=== PATIENT | female | born 1940 | race Caucasian/White ===

== ENCOUNTER 2018-09-02 16:24 | Inpatient (IN) | payer MEDICAID, MEDICARE ==
[2018-09-02] MEDS ORDERED: Sodium Chloride 0.9% 1000 ML 1,000 ML IV SCH (16:45)
[2018-09-02 16:47] LABS: BASOPHIL % 0.5 % (0.0-0.4); Basophil (Absolute #) 0.03 (0-0.4); Eosinophil % 0.5 % (0.00-5.0); Eosinophil (Absolute #) 0.03 (0-0.5); Granulocyte Absolute (ANC) 4.26 (1.4-6.9); Granulocytes % 68.6 % (36.0-66.0); Hematocrit 45.2 % (35-47); Mean Cell Volume 95.4 fl (78-100); Mean Corpuscular Hemoglobin 31.6 pg (26-32); Mean Corpuscular Hgb Concent. 33.2 g/dl (32-36); Mean Platelet Volume 10.1 fl (6-9.5); Monocyte (Absolute #) 0.58 (0.0-1.3); Monocytes % 9.4 % (0.0-12.0); Platelet Count 299 K/mm3 (150-450); Red Blood Count 4.74 M/mm3 (4.1-5.4); Red Cell Distribution Width 13.1 % (11.5-14.0); White Blood Count 6.2 K/mm3 (4.0-10.5)
[2018-09-02] MEDS ORDERED: Sodium Chloride 0.9% 1000 ML 1,000 ML ONE (16:47)
--- NOTE | 2018-09-02 16:54 | ERPHSYRPT ---
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 Patient sometimes has trouble remembering but she is oriented to place and person month and year. She states that she chronically has problems with her memory since having several strokes 4-5 years ago. Past medical history includes high blood pressure, diabetes, several CVAs Past surgical history includes pilonidal cyst, appendectomy, hysterectomy Social history patient denies tobacco alcohol or illicit drug use. Timing/Duration: day(s) (3-4 days) Severity: moderate Modifying Factors: Improves With: nothing Associated Symptoms: nausea, abdominal pain (suprapubic abdominal pain), shortness of breath (occasional shortness of breath), No vomiting, No heartburn , No diaphoresis, No cough, No chills, No chest pain, No fever, No headaches, No loss of appetite, No malaise, No rash, No syncope, No seizure, No weakness Allergies/Adverse Reactions: codeine Allergy (Verified 09/02/18 17:39) methadone Allergy (Verified 09/02/18 17:39) mold Allergy (Verified 09/02/18 17:39) Penicillins Allergy (Verified 09/02/18 17:39) propoxyphene [From Darvon] Allergy (Verified 09/02/18 17:39) Home Medications: Alprazolam 0.5 mg [xanAX 0.5 MG] 0.5 mg PO DAILY 09/02/18 [History] Atenolol 100 mg PO BID 09/02/18 [History] Insulin Glargine [Lantus Insulin] 80 units IJ HS 09/02/18 [History] Levothyroxine Sodium 137 mcg PO DAILY 09/02/18 [History] Pravastatin Sodium 20 mg PO DAILY 09/02/18 [History] - Review of Systems Constitutional: No Fever, No Chills Eyes: No Symptoms Ears, Nose, & Throat: No Symptoms Respiratory: Dyspnea (Occasional shortness ofbreath), Dyspnea on Exertion (ADAM) , No Cough, No Cyanosis, No Stridor, No Wheezing Cardiac: No Chest Pain, No Edema, No Syncope Abdominal/Gastrointestinal: Abdominal Pain, Nausea, Other (Loose stools), No Vomiting, No Diarrhea, No Constipation, No Hematemesis, No Hematochezia, No Melena, No Dysphagia, No Appetite Changes Genitourinary Symptoms: No Dysuria Musculoskeletal: No Back Pain, No Neck Pain Skin: No Rash Neurological: Other (patient states chronically has problems with her memory since several strokes 4-5 years ago) Psychological: No Symptoms Endocrine: No Symptoms All Other Systems: Reviewed and Negative - Nursing Vital Signs Nursing Vital Signs: Initial Vital Signs Temperature 98.3 F 09/02/18 16:27 Pulse Rate 103 H 09/02/18 16:27 Respiratory Rate 18 09/02/18 16:27 Blood Pressure 144/84 09/02/18 16:27 O2 Sat by Pulse Oximetry 96 09/02/18 16:27 Pain Scale Pain Intensity 7 - Physical Exam General Appearance: other (well-developed elderly white female alert oriented to person, place, month, year, some problems with memorry) Eye Exam: PERRL/EOMI, eyes nml inspection Ears, Nose, Throat Exam: normal ENT inspection, TMs normal, pharynx normal, moist mucous membranes Neck Exam: normal inspection, non-tender, supple, full range of motion Respiratory Exam: normal breath sounds, lungs clear, No respiratory distress Cardiovascular Exam: regular rate/rhythm, normal heart sounds, normal peripheral pulses, capillary refill <2 sec Gastrointestinal/Abdomen Exam: soft, tenderness (suprapubic tenderness) Back Exam: normal inspection, normal range of motion, No CVA tenderness, No vertebral tenderness Extremity Exam: normal inspection, normal range of motion, pelvis stable Neurologic Exam: alert, oriented x 3, director [employer] II-XII nml as tested, other (assurance manager insurance equal 5 over 5, normal finger to nose no pronator drift no facial droop speech normal some problems with memory) Skin Exam: normal color, warm, dry, No rash SpO2 Interpretation: normal - Course Nursing assessment & vital signs reviewed: Yes EKG Interpreted by Me: RATE (93 bpm), Sinus Rhythm, NORMAL AXIS, Other (EKG: Sinus rhythm, 93 bpm, normal axis, nonspecific ST-T wave changes) - Radiology Exams Chest X-ray Interpretation: Discussed w/ radiologist (chest x-ray: Nonacute chest with chronic features.) - CT Exams Head CT Interpretation: Discussed w/radiologist (head CT: Nonacute senile braiin) Ordered Tests: Active Orders 24 hr Category Date Time Status EKG-ER Only STAT Care 09/02/18 16:35 Active IV Insertion STAT Care 09/02/18 16:35 Active CHEST 1 VIEW (PORTABLE) Stat Exams 09/02/18 16:50 Completed HEAD WITHOUT CONTRAST [CT] Stat Exams 09/02/18 18:20 Taken AMYLASE Stat Lab 09/02/18 16:46 Completed CBC W DIFF Stat Lab 09/02/18 16:46 Completed CMP Stat Lab 09/02/18 16:46 Completed LIPASE Stat Lab 09/02/18 16:46 Completed Lactic Acid Stat Lab 09/02/18 16:48 Completed TROPONIN Q3H Lab 09/02/18 16:46 Completed TROPONIN Q3H Lab 09/02/18 19:40 Completed TROPONIN Q3H Lab 09/02/18 22:45 Ordered TROPONIN Q3H Lab 09/03/18 01:45 Ordered TROPONIN Q3H Lab 09/03/18 04:45 Ordered UA W/RFX UR CULTURE Stat Lab 09/02/18 17:45 Completed VENOUS BLOOD GAS Urgent Lab 09/02/18 19:40 Completed Medication Summary Generic Name Dose Route Start Last Admin Trade Name Freq PRN Reason Stop Dose Admin Sodium Chloride 1,000 mls @ 100 mls/hr 09/02/18 16:45 09/02/18 16:53 Sodium Chloride 0.9% 1000 Ml IV 10/02/18 16:44 100 mls/hr .Q10H KEIRY Administration Potassium Chloride 100 mls @ 50 mls/hr 09/02/18 19:30 09/02/18 20:01 Potassium Chloride 20 Meq In Water 100ml IV 09/02/18 23:29 50 mls/hr Q2H KEIRY Administration Lab/Rad Data: Laboratory Result Diagrams 09/02/18 16:46 09/02/18 16:46 Laboratory Results 09/02/18 09/02/18 09/02/18 Range/Units 19:40 19:40 17:45 WBC (4.0-10.5) K/mm3 RBC (4.1-5.4) M/mm3 Hgb (12.0-16.0) gm/dl Hct (35-47) % MCV (78-100) fl MCH (26-32) pg MCHC (32-36) g/dl RDW (11.5-14.0) % Plt Count (150-450) K/mm3 MPV (6-9.5) fl Gran % (36.0-66.0) % Eos # (Auto) (0-0.5) Absolute Lymphs (auto) (1.0-4.6) Absolute Monos (auto) (0.0-1.3) Lymphocytes % (24.0-44.0) % Monocytes % (0.0-12.0) % Eosinophils % (0.00-5.0) % Basophils % (0.0-0.4) % Absolute Granulocytes (1.4-6.9) Basophils # (0-0.4) pO2/FiO2 Ratio 21.0 % VBG pH 7.52 H (7.32-7.42) VBG pCO2 at Pat Temp 43 (42-55) mm/Hg VBG pO2 at Pat Temp 52 H (25-40) mm/Hg VBG HCO3 35.1 H* (22-28) meq/L VBG O2 Sat ([place]) 90.0 L (95-100) VBG Base Excess 11.0 H (-2.0-2.0) VBG Hemoglobin 13.7 VBG Carboxyhemoglobin 2.9 (0.0-6.9) % T HGB POC Potassium 2.0 L* (3.5-5.1) Sodium (137-145) mmol/L Potassium (3.5-5.1) mmol/L Chloride (98-107) mmol/L Carbon Dioxide (22-30) mmol/L Anion Gap (5-15) MEQ/L BUN (7-17) mg/dL Creatinine (0.52-1.04) mg/dL Estimated GFR ML/MIN Glucose (74-106) mg/dL Lactic Acid (0.4-2.0) Calcium (8.4-10.2) mg/dL Total Bilirubin (0.2-1.3) mg/dL AST (14-36) U/L ALT (0-35) U/L Alkaline Phosphatase (38-126) U/L Troponin I 0.036 H* (0.000-0.034) ng/mL Serum Total Protein (6.3-8.2) g/dL Albumin (3.5-5.0) g/dL Amylase (30-110) U/L Lipase (23-300) U/L Urine Color YELLOW (YELLOW) Urine Appearance CLEAR (CLEAR) Urine pH 7.0 (5-6) Ur Specific [place] 1.026 (1.005-1.025) Urine Protein 30 (Negative) Urine Ketones MODERATE (NEGATIVE) Urine Blood NEGATIVE (0-5) Jamil/ul Urine Nitrite NEGATIVE (NEGATIVE) Urine Bilirubin NEGATIVE (NEGATIVE) Urine Urobilinogen NEGATIVE (0-1) mg/dL Ur Leukocyte Esterase NEGATIVE (NEGATIVE) Urine WBC (Auto) NONE (0-5) /HPF Urine RBC (Auto) NONE (0-2) /HPF U Epithel Cells (Auto) NONE (FEW) /HPF Urine Bacteria (Auto) NONE (NEGATIVE) /HPF Urine Mucus (Auto) SLIGHT (NEGATIVE) /HPF Urine Culture Reflexed NO (NO) Urine Glucose >=500 (NEGATIVE) mg/dL 09/02/18 09/02/18 09/02/18 Range/Units 16:48 16:46 16:46 WBC (4.0-10.5) K/mm3 RBC (4.1-5.4) M/mm3 Hgb (12.0-16.0) gm/dl Hct (35-47) % MCV (78-100) fl MCH (26-32) pg MCHC (32-36) g/dl RDW (11.5-14.0) % Plt Count (150-450) K/mm3 MPV (6-9.5) fl Gran % (36.0-66.0) % Eos # (Auto) (0-0.5) Absolute Lymphs (auto) (1.0-4.6) Absolute Monos (auto) (0.0-1.3) Lymphocytes % (24.0-44.0) % Monocytes % (0.0-12.0) % Eosinophils % (0.00-5.0) % Basophils % (0.0-0.4) % Absolute Granulocytes (1.4-6.9) Basophils # (0-0.4) pO2/FiO2 Ratio % VBG pH (7.32-7.42) VBG pCO2 at Pat Temp (42-55) mm/Hg VBG pO2 at Pat Temp (25-40) mm/Hg VBG HCO3 (22-28) meq/L VBG O2 Sat ([place]) (95-100) VBG Base Excess (-2.0-2.0) VBG Hemoglobin VBG Carboxyhemoglobin (0.0-6.9) % T HGB POC Potassium (3.5-5.1) Sodium 137 (137-145) mmol/L Potassium 2.2 L* (3.5-5.1) mmol/L Chloride 90 L (98-107) mmol/L Carbon Dioxide 32 H (22-30) mmol/L Anion Gap 16.0 H (5-15) MEQ/L BUN 15 (7-17) mg/dL Creatinine 0.66 (0.52-1.04) mg/dL Estimated GFR > 60.0 ML/MIN Glucose 379 H (74-106) mg/dL Lactic Acid 1.6 (0.4-2.0) Calcium 9.5 (8.4-10.2) mg/dL Total Bilirubin 0.70 (0.2-1.3) mg/dL AST 39 H (14-36) U/L ALT 43 H (0-35) U/L Alkaline Phosphatase 75 (38-126) U/L Troponin I 0.033 (0.000-0.034) ng/mL Serum Total Protein 6.7 (6.3-8.2) g/dL Albumin 4.0 (3.5-5.0) g/dL Amylase 57 (30-110) U/L Lipase 106 (23-300) U/L Urine Color (YELLOW) Urine Appearance (CLEAR) Urine pH (5-6) Ur Specific [place] (1.005-1.025) Urine Protein (Negative) Urine Ketones (NEGATIVE) Urine Blood (0-5) Jamil/ul Urine Nitrite (NEGATIVE) Urine Bilirubin (NEGATIVE) Urine Urobilinogen (0-1) mg/dL Ur Leukocyte Esterase (NEGATIVE) Urine WBC (Auto) (0-5) /HPF Urine RBC (Auto) (0-2) /HPF U Epithel Cells (Auto) (FEW) /HPF Urine Bacteria (Auto) (NEGATIVE) /HPF Urine Mucus (Auto) (NEGATIVE) /HPF Urine Culture Reflexed (NO) Urine Glucose (NEGATIVE) mg/dL 09/02/18 Range/Units 16:46 WBC 6.2 (4.0-10.5) K/mm3 RBC 4.74 (4.1-5.4) M/mm3 Hgb 15.0 (12.0-16.0) gm/dl Hct 45.2 (35-47) % MCV 95.4 (78-100) fl MCH 31.6 (26-32) pg MCHC 33.2 (32-36) g/dl RDW 13.1 (11.5-14.0) % Plt Count 299 (150-450) K/mm3 MPV 10.1 H (6-9.5) fl Gran % 68.6 H (36.0-66.0) % Eos # (Auto) 0.03 (0-0.5) Absolute Lymphs (auto) 1.30 (1.0-4.6) Absolute Monos (auto) 0.58 (0.0-1.3) Lymphocytes % 21.0 L (24.0-44.0) % Monocytes % 9.4 (0.0-12.0) % Eosinophils % 0.5 (0.00-5.0) % Basophils % 0.5 (0.0-0.4) % Absolute Granulocytes 4.26 (1.4-6.9) Basophils # 0.03 (0-0.4) pO2/FiO2 Ratio % VBG pH (7.32-7.42) VBG pCO2 at Pat Temp (42-55) mm/Hg VBG pO2 at Pat Temp (25-40) mm/Hg VBG HCO3 (22-28) meq/L VBG O2 Sat ([place]) (95-100) VBG Base Excess (-2.0-2.0) VBG Hemoglobin VBG Carboxyhemoglobin (0.0-6.9) % T HGB POC Potassium (3.5-5.1) Sodium (137-145) mmol/L Potassium (3.5-5.1) mmol/L Chloride (98-107) mmol/L Carbon Dioxide (22-30) mmol/L Anion Gap (5-15) MEQ/L BUN (7-17) mg/dL Creatinine (0.52-1.04) mg/dL Estimated GFR ML/MIN Glucose (74-106) mg/dL Lactic Acid (0.4-2.0) Calcium (8.4-10.2) mg/dL Total Bilirubin (0.2-1.3) mg/dL AST (14-36) U/L ALT (0-35) U/L Alkaline Phosphatase (38-126) U/L Troponin I (0.000-0.034) ng/mL Serum Total Protein (6.3-8.2) g/dL Albumin (3.5-5.0) g/dL Amylase (30-110) U/L Lipase (23-300) U/L Urine Color (YELLOW) Urine Appearance (CLEAR) Urine pH (5-6) Ur Specific [place] (1.005-1.025) Urine Protein (Negative) Urine Ketones (NEGATIVE) Urine Blood (0-5) Jamil/ul Urine Nitrite (NEGATIVE) Urine Bilirubin (NEGATIVE) Urine Urobilinogen (0-1) mg/dL Ur Leukocyte Esterase (NEGATIVE) Urine WBC (Auto) (0-5) /HPF Urine RBC (Auto) (0-2) /HPF U Epithel Cells (Auto) (FEW) /HPF Urine Bacteria (Auto) (NEGATIVE) /HPF Urine Mucus (Auto) (NEGATIVE) /HPF Urine Culture Reflexed (NO) Urine Glucose (NEGATIVE) mg/dL - Progress Progress: improved Progress Note: 09/02/18 19:18 78-year-old white female with history of high blood pressure, diabetes, who states she's had CVA in the past and has memory problems arrives with complaints of low abdominal pain symptoms for several days she states she's been nauseous no vomiting She is felt to be somewhat to confused by the nurses however the patient is alert and oriented to person month and year. She does have problems with remembering some things she does state that they she has been chronically like this since having several strokes 4-5 years ago. On physical examination patient is alert and oriented 3. Head is atraumatic normocephalic. Eyes PERRLA EOMI fundi are unremarkable. Ears TMs malin intact bilaterally. Nose is clear. Throat is clear. Neck is supple lungs are clear heart is regular abdomen soft, mild suprapubic tenderness positive bowel sounds negative masses negative rebound. Extremities full range of motion pulse equal symmetrical 2 over 4. Neuro cranial nerves II through XII are intact DTRs symmetrical 2 over 4 Bladen Coma Scale 15 patient does have some memory problems. Labs EKG sinus rhythm 93 beats per minute normal axis nonspecific ST and T wave changes head CT without contrast: No comparisons. Nonacute senile brain chest x -ray nonacute chest with chronic features. Labs CBC white blood cell 6.2 hemoglobin 15.0 hematocrit 45.2 platelets 299 Chemistry sodium 137 potassium 2.2 chloride 90 bicarbonate 32 BUN 15 creatinine 0.66 glucose is 379. Patient's troponin is 0. 033 Lactate is 1.6 Urinalysis moderate ketones specific gravity 1. 07/03/29 protein Impression 1.abdominal pain 2. Hyperglycemia 3. Hypokalemia. Plan we'll obtain venous gases on this patient I have asked the nurses to run in a bolus of normal saline 1 L. We'll go ahead and order K rider for this patient. Expect patient will need to be placed on observation telemetry continue potassium continued IV fluids sliding scale insulin coverage. 09/02/18 19:[address] Enamorado who is loans consultant for the hospital. This patient has hypokalemia and hyperglycemia. With a potassium of 2.2. We'll run in his current liter of normal saline Will plan to change the IV normal saline to 150 mL per hour, 40 mEq K rider has been ordered for this patient. Patient will need placed on telemetry patient will need her potassium up to at least 3 before considering insulin. Patient suprapubic abdominal pain is already improved after receiving IV fluids Impression 1 abdominal pain (suprapubic ) (2. Hypokalemia, Hyperglycemia. 09/02/18 20:27 I have been notified by labs at patient's troponin 0.036 last one was 0.033 I' ve discussed this with Dr. enamorado do not feel like this is significant. Patient is not having any chest pain she is stable. This appears to represent lab variation. Will go ahead and plan on placing the patient on telemetry with normal saline at 150 mL per hour patient is receiving a bolus of 1 L at this time. Will order every 2 hour Accu-Cheks. Patient to have a repeat BMP after second K rider has been instilled. . This has been discussed with Dr. enamorado. - Departure Departure Disposition: Observation Clinical Impression: Hyperglycemia, Hypokalemia Abdominal pain Qualifiers: Abdominal location: lower abdomen, unspecified Qualified Code(s): R10.30 - Lower abdominal pain, unspecified Condition: Fair Critical Care Time: No Referrals: DOCTOR,NO FAMILY [Primary Care Provider] -
--- NOTE | 2018-09-02 17:07 | XRAY ---
Indication: Abdomen pain. Comparison: None Portable chest demonstrates left midlung discoid atelectasis/scarring. Remaining heart and lungs normal. Bony thorax intact with mild degenerative changes. Impression: Nonacute chest with chronic features.
[2018-09-02 17:37] LABS: ALKALINE PHOSPHATASE 75 U/L (38-126); AMYLASE 57 U/L (30-110); BLOOD UREA NITROGEN 15 mg/dL (7-17); CHLORIDE 90 mmol/L (98-107); Calcium 9.5 mg/dL (8.4-10.2); Carbon Dioxide 32 mmol/L (22-30); Creatinine 1 0.66 mg/dL (0.52-1.04); Glucose 379 mg/dL (74-106); LIPASE 106 U/L (23-300); SGOT/AST 39 U/L (14-36); SGPT/ALT 43 U/L (0-35); SODIUM 137 mmol/L (137-145); Total Protein 6.7 g/dL (6.3-8.2)
[2018-09-02 17:44] LABS: Potassium 2.2 mmol/L (3.5-5.1)
[2018-09-02 18:10] LABS: Appearance CLEAR (CLEAR); Bilirubin NEGATIVE (NEGATIVE); Blood NEGATIVE Ery/ul (0-5); Glucose >=500 mg/dL (NEGATIVE); Ketones MODERATE (NEGATIVE); Leukocyte Esterase NEGATIVE (NEGATIVE); Mucus SLIGHT /HPF (NEGATIVE); Nitrite NEGATIVE (NEGATIVE); Protein,Urine Dip 30 (Negative); Specific Gravity 1.026 (1.005-1.025); Urobilinogen NEGATIVE mg/dL (0-1)
[2018-09-02] MEDS ORDERED: POTASSIUM CHLORIDE 20 mEq IN WATER 100ML 100 ML IV SCH (19:30)
[2018-09-02 19:54] LABS: VBG CARBOXYHEMOGLOBIN 2.9 % T HGB (0.0-6.9); VBG HCO3- 35.1 meq/L (22-28); VBG HEMOGLOBIN 13.7; VBG pH 7.52 (7.32-7.42)
[2018-09-02] MEDS ORDERED: POTASSIUM CHLORIDE 20 mEq IN WATER 100ML 100 ML IV ONE (19:57)
[2018-09-02 23:37] LABS: ANION GAP 12.5 MEQ/L (5-15); BLOOD UREA NITROGEN 11 mg/dL (7-17); CHLORIDE 95 mmol/L (98-107); Calcium 8.7 mg/dL (8.4-10.2); Carbon Dioxide 33 mmol/L (22-30); Creatinine 1 0.57 mg/dL (0.52-1.04); Glucose 299 mg/dL (74-106); SODIUM 138 mmol/L (137-145)
[2018-09-02 23:45] LABS: Potassium 2.4 mmol/L (3.5-5.1)
[2018-09-03] MEDS: POTASSIUM CHLORIDE 20 mEq IN WATER 100ML 20 MEQ/100 ML BAG IV SCH ×4 (00:05→11:43)
[2018-09-03] MEDS: Magnesium 1 Gm / 100 Ml D5W*** 100 ML IV SCH ×2 (04:24→05:01)
[2018-09-03] MEDS: NovoLOG Insulin SQ PRN ×7 (04:46→22:11)
[2018-09-03 05:53] LABS: BASOPHIL % 0.5 % (0.0-0.4); Basophil (Absolute #) 0.03 (0-0.4); Eosinophil % 0.8 % (0.00-5.0); Eosinophil (Absolute #) 0.05 (0-0.5); Granulocyte Absolute (ANC) 4.63 (1.4-6.9); Granulocytes % 70.7 % (36.0-66.0); Hematocrit 41.4 % (35-47); Hemoglobin 13.4 gm/dl (12.0-16.0); Lymphocyte (Absolute #) 1.24 (1.0-4.6); Mean Cell Volume 97.2 fl (78-100); Mean Corpuscular Hemoglobin 31.5 pg (26-32); Mean Corpuscular Hgb Concent. 32.4 g/dl (32-36); Mean Platelet Volume 10.6 fl (6-9.5); Monocyte (Absolute #) 0.59 (0.0-1.3); Platelet Count 278 K/mm3 (150-450); Red Blood Count 4.26 M/mm3 (4.1-5.4); Red Cell Distribution Width 12.9 % (11.5-14.0); White Blood Count 6.5 K/mm3 (4.0-10.5)
[2018-09-03 06:13] LABS: ALBUMIN 3.2 g/dL (3.5-5.0); ALKALINE PHOSPHATASE 62 U/L (38-126); ANION GAP 10.5 MEQ/L (5-15); BLOOD UREA NITROGEN 8 mg/dL (7-17); CHLORIDE 96 mmol/L (98-107); Calcium 8.1 mg/dL (8.4-10.2); Carbon Dioxide 33 mmol/L (22-30); Creatinine 1 0.58 mg/dL (0.52-1.04); Glucose 351 mg/dL (74-106); SGOT/AST 24 U/L (14-36); SGPT/ALT 34 U/L (0-35); SODIUM 137 mmol/L (137-145); Total Protein 5.6 g/dL (6.3-8.2)
[2018-09-03 06:29] LABS: Potassium 2.5 mmol/L (3.5-5.1)
[2018-09-03] MEDS: Sodium Chloride 0.9% 1000 ML 1,000 ML IV SCH ×3 (06:48→13:31)
[2018-09-03 07:27] LABS: MAGNESIUM 2.2 mg/dL (1.6-2.3)
[2018-09-03 07:49] LABS: Potassium 2.4 mmol/L (3.5-5.1)
--- NOTE | 2018-09-03 08:41 | XRAY ---
Indication: Memory problems. Multiple contiguous axial images obtained through the head without contrast. Comparison: None Age-appropriate global atrophy and mild periventricular degenerative micro-ischemia bilaterally. Benign bilateral basal ganglia calcifications. No acute intracranial hemorrhage, abnormal extra-axial fluid collection, or mass effect. Ventricular system is slightly prominent. Fourth ventricle is midline. Bony calvarium intact. Visualized paranasal sinuses and mastoid air cells are clear. Impression: 1. Nonacute senile brain. 2. Slightly prominent ventricular system. Communicating type hydrocephalus not completely excluded in the right clinical setting. CT DI 61.87
[2018-09-03] MEDS: Lantus Insulin SQ SCH (09:25)
[2018-09-03] MEDS: ENOXAPARIN SODIUM SQ SCH (09:25)
[2018-09-03] MEDS ORDERED: SYNTHROID 25 MCG PO SCH (10:45)
[2018-09-03] MEDS ORDERED: SYNTHROID 112 MCG PO SCH (10:45)
[2018-09-03] MEDS: TENORMIN 50 MG PO SCH ×2 (11:41→22:10)
[2018-09-03] MEDS ORDERED: xanAX 0.5 MG PO SCH (12:00)
--- NOTE | 2018-09-03 14:02 | HP ---
HISTORY OF PRESENT ILLNESS: This is a 78 year-old patient who does not have a physician in the local area. She reports she is from [facility] and had a nurse practitioner that she saw in [place] but she has moved to the [facility] and is staying with a family member in [facility] which are apartments and she has been there for less than a week. She reports she has a history of diabetes mellitus type 2. She is concerned that some of her medication may have been stolen during the move. She reports she checks her blood sugar in the morning and the evening. She states that she always has diarrhea, abdominal pain and cramps from the diarrhea but that at this point in time is better. She reports years ago she had low potassium and was supposed to take potassium on a regular basis but then she thinks was forgotten and she has not been on potassium lately. The emergency room notes that she came in with lower abdominal pain. The nurses were concerned about altered mental status. Because of this she had a troponin done and a second one. The second one was very slightly elevated. The patient has never had any chest pain. She also had a head CT that was read as senile brain with no acute problems. Please see the radiologist report for that. The patient denies any falls. REVIEW OF SYSTEMS: No fever. No cough. She reports rhinorrhea chronically from allergies but no change. No nausea or vomiting. She reports she has some itching under her left arm where she had some warts. No lower extremity edema. No blood in her stool. She reports she had a colonoscopy five to ten years ago that was normal. PAST MEDICAL HISTORY: Diabetes mellitus type 2, seasonal allergies, hypothyroidism. PAST SURGICAL HISTORY: Appendectomy. Hysterectomy. Pilonidal cyst removed. Thyroid removed. 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 She denies having chemo or radiation. MEDICATIONS: Please see the medication reconciliation list which I reviewed. ALLERGIES: CODEINE, METHADONE, PENICILLIN, PROPOXYPHENE. SOCIAL HISTORY: She is a . She denies any tobacco. Occasional alcohol use but only rarely. FAMILY HISTORY: Her mother is and at 98. She also had problems with diarrhea. Her father is and at 75 from bladder cancer. PHYSICAL EXAMINATION: VITAL SIGNS: Temperature current 97.8F, heart rate 86, respiratory rate 20, blood pressure 172/80. Oxygen saturation 95% on room air. GENERAL: The patient is sitting up a pleasant talkative lady in no acute distress. She is alert, oriented x3 and knows who the President of [employer] is. CVS: She has a regular rate and rhythm. No murmurs, gallops or rubs. CHEST: Clear to auscultation bilaterally. No crackles or wheezes. ABDOMEN: Soft, nontender, nondistended with normal bowel sounds. EXTREMITIES: No clubbing, cyanosis or edema. SKIN: Warm, dry and intact. LABORATORY DATA AND TESTS: On admission her potassium was 2.2 and it went up to 2.5 with replacement and another repeat was 2.4 again. Her magnesium was checked and was 1.6, replaced was 2.2. CBC within normal limits. UA revealed greater than 500 glucose, moderate ketones. Chest x-ray was read as nonacute chest with chronic features. ASSESSMENT AND PLAN: 1) HYPOKALEMIA: The etiology of this is unclear. She states she does eat regularly. It could be due to the diarrhea. Will continue with IV replacement. I have also tried to raise her magnesium level to help with this. 2) DIARRHEA: Will check blood test to screen for celiac disease. 3) DIABETES MELLITUS TYPE 2, UNCONTROLLED: She said she takes 80 units of Lantus at home but could not remember when she last took this. I have started her on 20 units of Lantus on a low sliding scale. 4) HYPOTHYROIDISM: Her TSH was checked and was found to be elevated. I will plan to increase her dose on Levothyroxine if she has truly had cancer in the past we want to try keep her TSH as low as possible. 5) DEEP VENOUS THROMBOSIS PROPHYLAXIS: Use Lovenox and LISA hose.
[2018-09-03] MEDS ORDERED: Klor Con 10 MEQ PO ONE ×2 (16:52→21:57)
[2018-09-03] MEDS: ZOCOR 20MG PO SCH (22:11)
[2018-09-03] MEDS: xanAX 0.5 MG PO SCH (22:11)
[2018-09-04 03:57] LABS: IGA QUANTITATIVE 109 mg/dL (70-400)
[2018-09-04] MEDS: Sodium Chloride 0.9% 10 ML FLUSH Syringe IV SCH ×3 (06:01→21:27)
[2018-09-04 06:05] LABS: ANION GAP 9.9 MEQ/L (5-15); BLOOD UREA NITROGEN 11 mg/dL (7-17); CHLORIDE 99 mmol/L (98-107); Carbon Dioxide 36 mmol/L (22-30); Glucose 281 mg/dL (74-106); SODIUM 142 mmol/L (137-145)
[2018-09-04 06:14] LABS: Potassium 2.9 mmol/L (3.5-5.1)
[2018-09-04] MEDS ORDERED: Klor Con 10 MEQ PO ONE ×2 (06:46→06:53)
[2018-09-04] MEDS: ENOXAPARIN SODIUM SQ SCH (07:46)
[2018-09-04] MEDS: NovoLOG Insulin SQ PRN ×3 (07:47→21:27)
[2018-09-04] MEDS: Lantus Insulin SQ SCH (07:47)
[2018-09-04] MEDS: Sodium Chloride 0.9% 1000 ML 1,000 ML IV SCH (07:47)
[2018-09-04] MEDS: TENORMIN 50 MG PO SCH ×2 (08:04→21:26)
[2018-09-04] MEDS: SYNTHROID 150 MCG PO SCH (08:04)
[2018-09-04] MEDS: Aldactone 25 MG PO SCH (10:23)
[2018-09-04 13:29] LABS: T-TRANSGLUTAMINASE IGA <0.5 U/mL (0.0-14.9)
[2018-09-04] MEDS ORDERED: K-LYTE 25 MEQ PO ONE (13:39)
--- NOTE | 2018-09-04 16:26 | PCM.NOTE ---
Date and Time: 09/04/18 1620 Subjective Assessment: She reports today that she is basically homeless and needs a place to rent. When asked she reports having had a tumor maybe on her kidney or adrenal gland back when all her children lived at home. She states [facility] has not had any follow up on this. When I asked her if she has been on spironolactone in the past, she said yes. Overall she states she feels better. She denies abdominal pain or diarrhea at this time. - Review of Systems Constitutional: No Symptoms Eyes: No Symptoms Ears, Nose, & Throat: No Symptoms Respiratory: No Symptoms Cardiac: No Symptoms Abdominal/Gastrointestinal: No Symptoms Genitourinary Symptoms: No Symptoms Musculoskeletal: No Symptoms Skin: No Symptoms Objective Exam General Appearance: no apparent distress Neurologic Exam: alert, cooperative, nml station & gait Skin Exam: normal color, warm, dry, No rash Respiratory Exam: normal breath sounds, No lungs clear, No respiratory distress Cardiovascular Exam: regular rate/rhythm, normal heart sounds, No murmur, No friction rub, No gallop Gastrointestinal/Abdomen Exam: soft, normal bowel sounds, No tenderness, No distention, No mass Extremity Exam: normal inspection, other (no c/c/e) OBJECTIVE DATA Vital Signs: Vital Signs - 24 hr Temp Pulse Resp BP BP Pulse Ox 09/04/18 12:00 98.1 F 70 20 132/58 96 09/04/18 08:04 68 150/65 09/04/18 08:00 97.8 F 68 16 150/65 96 09/04/18 04:00 98.2 F 69 18 153/65 94 L 09/04/18 00:00 17 09/03/18 23:50 97.9 F 70 17 184/78 96 09/03/18 22:10 75 170/72 09/03/18 20:06 17 09/03/18 20:00 99.0 F 75 17 170/72 99 Pain Assessment - Last Documented Pain Intensity 0 Pain Scale Used 0-10 Pain Scale Intake and Output: Intake & Output 09/02/18 09/03/18 09/04/18 09/05/18 06:59 06:59 06:59 06:59 Intake Total 2163 1980 Output Total 400 2400 Balance 1763 -420 Weight 78.5 kg 78.2 kg Lab Results: Accuchecks Date 09/04/18 Date 09/04/18 Date 09/03/18 Date 09/03/18 Date 09/03/18 Time 11:30 Time 05:00 Time 23:00 Time 21:30 Accucheck Value: 353 Accucheck Value: 252 Accucheck Value: 372 Accucheck Value: 207 Lab Results-Last 24 Hours 09/03/18 09/03/18 09/03/18 Range/Units 05:00 16:15 20:17 Sodium (137-145) mmol/L Potassium 2.6 L* 2.5 L* (3.5-5.1) mmol/L Chloride (98-107) mmol/L Carbon Dioxide (22-30) mmol/L Anion Gap (5-15) MEQ/L BUN (7-17) mg/dL Creatinine (0.52-1.04) mg/dL Estimated GFR ML/MIN Glucose (74-106) mg/dL Calcium (8.4-10.2) mg/dL Ur Random Creatinine MG/DL Urine Potassium (0.1-0.7) mmol/L IgA 109 (70-400) mg/dL Tiss Transglutamin IgA <0.5 (0.0-14.9) U/mL 09/03/18 09/03/18 09/04/18 Range/Units 22:00 22:00 05:23 Sodium 142 (137-145) mmol/L Potassium 2.9 L* (3.5-5.1) mmol/L Chloride 99 (98-107) mmol/L Carbon Dioxide 36 H (22-30) mmol/L Anion Gap 9.9 (5-15) MEQ/L BUN 11 (7-17) mg/dL Creatinine 0.50 L (0.52-1.04) mg/dL Estimated GFR > 60.0 ML/MIN Glucose 281 H (74-106) mg/dL Calcium 8.0 L (8.4-10.2) mg/dL Ur Random Creatinine 44.9 MG/DL Urine Potassium 26.7 H (0.1-0.7) mmol/L IgA (70-400) mg/dL Tiss Transglutamin IgA (0.0-14.9) U/mL 09/04/18 Range/Units 12:18 Sodium (137-145) mmol/L Potassium 2.8 L* (3.5-5.1) mmol/L Chloride (98-107) mmol/L Carbon Dioxide (22-30) mmol/L Anion Gap (5-15) MEQ/L BUN (7-17) mg/dL Creatinine (0.52-1.04) mg/dL Estimated GFR ML/MIN Glucose (74-106) mg/dL Calcium (8.4-10.2) mg/dL Ur Random Creatinine MG/DL Urine Potassium (0.1-0.7) mmol/L IgA (70-400) mg/dL Tiss Transglutamin IgA (0.0-14.9) U/mL Radiology Exams: Radiology Procedures Category Date Time Status CHEST 1 VIEW (PORTABLE) Stat Exams 09/02/18 16:50 Completed HEAD WITHOUT CONTRAST [CT] Stat Exams 09/02/18 18:20 Completed Multi-Disciplinary Progress Notes: Multi-Disciplinary Progress Notes 09/04/18 14:27 Nutrition Note by Yuly Pablo Note: Pt requested diabetes H/Os regarding serving size for carb choices. Provided carb counting ed and gave H/Os for reinforcement. Pt requested MD to change current diet to 1600 ADA to help with BS control. Communicated this with HAILE Hernandez and left note in Pt paper Chart. Jeanne MSRDCD Initialized on 09/04/18 14:27 - END OF NOTE Assessment/Plan (1) Hypokalemia Current Visit: Yes Status: Acute Assessment & Plan: Continue replacement. She has renal potassium wasting with Potassium to creatinine ration of 59 mmol KCL/mg creatinine. Will ask for nephrology consult. I also started spironolactone. Aldosterone and renin level have been ordered and drawn. Magnesium level is now normal. 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 Continue sliding scale insulin. Code(s): E11.65 - TYPE 2 DIABETES MELLITUS WITH HYPERGLYCEMIA (3) Hypothyroidism Current Visit: Yes Status: Acute Assessment & Plan: I increased her dose of levothyroxine yesterday. Code(s): E03.9 - HYPOTHYROIDISM, UNSPECIFIED
[2018-09-04] MEDS: ZOCOR 20MG PO SCH (21:26)
[2018-09-04] MEDS: xanAX 0.5 MG PO SCH (21:26)
[2018-09-05 06:00] LABS: ANION GAP 9.9 MEQ/L (5-15); BLOOD UREA NITROGEN 10 mg/dL (7-17); CHLORIDE 94 mmol/L (98-107); Calcium 7.8 mg/dL (8.4-10.2); Carbon Dioxide 38 mmol/L (22-30); Creatinine 1 0.58 mg/dL (0.52-1.04); Glucose 266 mg/dL (74-106); SODIUM 140 mmol/L (137-145)
[2018-09-05 06:03] LABS: Potassium 2.9 mmol/L (3.5-5.1)
[2018-09-05] MEDS ORDERED: Klor Con 10 MEQ PO ONE ×3 (06:11→08:31)
[2018-09-05] MEDS: Sodium Chloride 0.9% 10 ML FLUSH Syringe IV SCH ×3 (06:24→21:49)
[2018-09-05] MEDS: NovoLOG Insulin SQ PRN ×3 (07:44→20:44)
[2018-09-05] MEDS: TENORMIN 50 MG PO SCH ×2 (08:59→21:47)
[2018-09-05] MEDS: Aldactone 25 MG PO SCH (08:59)
[2018-09-05] MEDS: Lantus Insulin SQ SCH (09:00)
[2018-09-05] MEDS: ENOXAPARIN SODIUM SQ SCH (09:00)
[2018-09-05] MEDS: POTASSIUM CHLORIDE 20 mEq IN WATER 100ML 20 MEQ/100 ML BAG IV SCH ×2 (09:00→12:18)
[2018-09-05] MEDS: SYNTHROID 150 MCG PO SCH (09:00)
--- NOTE | 2018-09-05 10:37 | PCM.NOTE ---
Date and Time: 09/05/18 1034 Subjective Assessment: Patient reports a good appetite and denies abdominal pain. Her nurse is at the bedside and states she has had 3 loose stools today. Nephrology consulted and they plan to see the patient today. She reports some increase in urination. She saw mental health today and they felt she was stable from their stand point. - Review of Systems Constitutional: No Symptoms Eyes: No Symptoms Ears, Nose, & Throat: No Symptoms Respiratory: No Symptoms Cardiac: No Symptoms Abdominal/Gastrointestinal: No Symptoms Genitourinary Symptoms: No Symptoms Musculoskeletal: No Symptoms Skin: No Symptoms Objective Exam General Appearance: no apparent distress, alert, obese Neurologic Exam: alert, cooperative Skin Exam: normal color, warm, dry, rash, other (erythema under left breast.) Respiratory Exam: normal breath sounds, lungs clear, No crackles/rales, No rhonchi, No wheezing Cardiovascular Exam: regular rate/rhythm, normal heart sounds, No murmur, No friction rub, No gallop Gastrointestinal/Abdomen Exam: soft, normal bowel sounds, No tenderness, No distention, No mass Extremity Exam: other (no c/c/e) OBJECTIVE DATA Vital Signs: Vital Signs - 24 hr Temp Pulse Resp BP BP Pulse Ox 09/05/18 08:59 76 180/74 09/05/18 08:00 97.9 F 69 18 180/74 95 09/05/18 07:28 16 09/05/18 04:00 17 09/05/18 03:54 98.2 F 64 17 187/74 98 09/05/18 00:00 97.7 F 64 18 163/72 97 09/04/18 21:26 77 150/65 09/04/18 20:00 98.3 F 77 18 162/78 95 09/04/18 16:00 98.5 F 80 18 146/70 94 L 09/04/18 12:00 98.1 F 70 20 132/58 96 Pain Assessment - Last Documented Pain Intensity 0 Pain Scale Used 0-10 Pain Scale Intake and Output: Intake & Output 09/03/18 09/04/18 09/05/18 09/06/18 06:59 06:59 06:59 06:59 Intake Total 2163 1980 860 Output Total 400 2400 Balance 1763 -420 860 Weight 78.5 kg 78.2 kg 80 kg Lab Results: Accuchecks Date 09/05/18 Date 09/04/18 Date 09/04/18 Date 09/04/18 Time 07:40 Time 22:00 Time 16:30 Time 11:30 Accucheck Value: 211 Accucheck Value: 280 Accucheck Value: 353 Lab Results-Last 24 Hours 09/03/18 09/04/18 09/05/18 Range/Units 05:00 12:18 05:19 Sodium 140 (137-145) mmol/L Potassium 2.8 L* 2.9 L* (3.5-5.1) mmol/L Chloride 94 L (98-107) mmol/L Carbon Dioxide 38 H (22-30) mmol/L Anion Gap 9.9 (5-15) MEQ/L BUN 10 (7-17) mg/dL Creatinine 0.58 (0.52-1.04) mg/dL Estimated GFR > 60.0 ML/MIN Glucose 266 H (74-106) mg/dL Calcium 7.8 L (8.4-10.2) mg/dL Tiss Transglutamin IgA <0.5 (0.0-14.9) U/mL Multi-Disciplinary Progress Notes: Multi-Disciplinary Progress Notes 09/04/18 14:27 Nutrition Note by Yuly Pablo Note: Pt requested diabetes H/Os regarding serving size for carb choices. Provided carb counting ed and gave H/Os for reinforcement. Pt requested MD to change current diet to 1600 ADA to help with BS control. Communicated this with HAILE Hernandez and left note in Pt paper Chart. Jeanne MSRDCD Initialized on 09/04/18 14:27 - END OF NOTE Assessment/Plan (1) Hypokalemia Current Visit: Yes Status: Acute Assessment & Plan: Continue with replacement. Plasma renin and plasma aldosterone results pending. Urine potassium was high. Sprinoloactone started. Nephrology consulted. Code(s): E87.6 - HYPOKALEMIA (2) Type 2 diabetes mellitus with hyperglycemia Current Visit: Yes Status: Acute Qualifiers: Diabetes mellitus intermediate insulin use: with intermediate use Qualified Code( s): E11.65 - Type 2 diabetes mellitus with hyperglycemia; Z79.4 - detention ( current) use of insulin Assessment & Plan: Continue current medication. Code(s): E11.65 - TYPE 2 DIABETES MELLITUS WITH HYPERGLYCEMIA (3) Hypothyroidism Current Visit: Yes Status: Acute Assessment & Plan: Dose of levothyroxine was increased during this hospitalization. Code(s): E03.9 - HYPOTHYROIDISM, UNSPECIFIED (4) Tinea corporis Current Visit: Yes Status: Acute Assessment & Plan: Start nystatin powder. Code(s): B35.4 - TINEA CORPORIS
[2018-09-05] MEDS: Sodium Chloride 0.9% 1000 ML 1,000 ML IV SCH (10:50)
[2018-09-05] MEDS: NYSTOP 30 GM CREAM TOP SCH ×2 (12:20→21:50)
[2018-09-05] MEDS: Klor Con 10 MEQ PO SCH (15:15)
--- NOTE | 2018-09-05 16:35 | XRAY ---
Indication: Possible adrenal gland tumor. Multiple contiguous axial images obtained through the abdomen and pelvis without contrast. Comparison: None Lung bases demonstrates minimal fibrosis/scarring. No infiltrate or effusion. Heart is not enlarged. Left and right adrenal glands appear normal in size and configuration. Noncontrasted stomach and bowel loops appear nonobstructed. Normal appendix. Previous cholecystectomy and hysterectomy. Both kidneys demonstrates nonspecific perinephric stranding. 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 Left kidney also demonstrates 3 round masses more dense than cyst, largest 1.9 cm mid pole possibly complex/viscous cysts. No hydronephrosis or large ureter. Remaining liver, pancreas, spleen, adrenal glands, kidneys, ureters, and bladder appear unremarkable for noncontrast exam. Moderate scattered aortoiliac calcifications without AAA. Osseous structures intact with mild degenerative changes throughout the spine. No ventral or inguinal hernias. Impression: 1. Negative adrenal gland mass. 2. Round left renal masses as detailed, possible complex/viscous cysts. CT or MRI with contrast exam may yield further information. 3. Tiny left renal angiomyolipoma. 4. No acute intra-abdominal/pelvic abnormalities on this noncontrast exam. CTDI 22.29
[2018-09-05] MEDS: xanAX 0.5 MG PO SCH (21:49)
[2018-09-05] MEDS: ZOCOR 20MG PO SCH (21:49)
[2018-09-06] MEDS: Klor Con 10 MEQ PO SCH ×4 (01:37→21:50)
[2018-09-06] MEDS: Sodium Chloride 0.9% 10 ML FLUSH Syringe IV SCH ×3 (05:31→21:51)
[2018-09-06 06:12] LABS: ANION GAP 11.9 MEQ/L (5-15); BLOOD UREA NITROGEN 11 mg/dL (7-17); CHLORIDE 100 mmol/L (98-107); Calcium 7.9 mg/dL (8.4-10.2); Carbon Dioxide 32 mmol/L (22-30); Creatinine 1 0.53 mg/dL (0.52-1.04); Glucose 276 mg/dL (74-106); Potassium 3.3 mmol/L (3.5-5.1); SODIUM 142 mmol/L (137-145)
--- NOTE | 2018-09-06 08:45 | CONS ---
CONSULT DATE: 09/05/2018 REASON FOR CONSULT: Hypertension, hypokalemia. HISTORY: Miss Ferguson is a 78 year-old female who has a significant past medical history of diabetes mellitus type 2, hypertension and CVA, was admitted to the hospital with complaint of weakness, vomiting and not feeling well. She was noted to be hypokalemic and her potassium level was noted to be low at 2.6. She has been getting aggressive potassium replacement intravenously. The patient stated that she has a history of some sort of abdominal adrenal tumor which was discovered in at the [facility] in [place]. She was worked up for that however it was never recommended in surgery. She has not followed with anybody since then. She stated she was following with a physician and nurse practitioner in [place], [place]. However, she has moved down to [place] now and has not seen any primary care since then. The patient was not taking any potassium pills at home. The patient reported having some nausea and vomiting before coming into the hospital. She denies any complaints with urination. Denies any dysuria or hematuria. Denies any fevers or chills. Denies any headache. Denies any blurry vision at this time. PAST MEDICAL HISTORY: As mentioned above diabetes mellitus type 2, CVA, hypothyroidism, thyroid tumor and hypertension. MEDICATIONS: Outpatient mediations reviewed. ALLERGIES: PER THE CHART. SOCIAL HISTORY: No smoking, alcohol or illicit drug use. FAMILY HISTORY: Significant for stroke and hypertension. REVIEW OF SYSTEMS: All pertinent systems reviewed. Negative except as mentioned in the history of present illness. PHYSICAL EXAMINATION: Vital signs noted. The blood pressure is high. GENERAL: The patient is alert, awake, not in any acute distress. HEENT: Head atraumatic, normocephalic. EENT: There is no ear or nose discharge. Oral mucosa is moist. NECK: No JVD or thyromegaly or any palpable swelling noted. CVS: S1, S2 normal. No murmur or gallop. RESPIRATORY: Significant expansion. No rhonchi or wheezing. ABDOMEN: Soft, nontender, nondistended. EXTREMITIES: No pitting edema. No cyanosis or clubbing. SKIN: Warm, dry. No rash. PSYCHIATRIC: Affect is normal. She is cooperative, answering questions appropriately. NEUROLOGIC: The patient is alert, awake, normal speech and normal hearing. LAB DATA AND TESTS: Potassium was noted to be low at 2.9 and it was 2.6 yesterday. Kidney function is within normal range. CT of the head and chest x-ray were reviewed. IMPRESSION AND PLAN: A 78 year-old female who presented with a severe hypokalemia and also noted to be hypertensive. 1) HYPOKALEMIA: This is an unprovoked hypokalemia. She has not had any vomiting at this time. She is not on any loop diuretic and for some reason she is persistently alkalotic. It makes me think she may have underlying hyperaldosteronism and we certainly need to rule out adrenal tumor. I will get a CT of the abdomen with and without contrast with adrenal focus to rule out the adrenal adenoma. Aldosterone level has already been sent out and will wait for the results. I agree with Aldactone at this time at 100 mg, closely monitor the blood pressure. I will add p.o. potassium 40 t.i.d., will repeat the potassium level. Magnesium level has already been checked and is within normal range. 2) HYPERTENSION: It makes me think that the patient has a history of long-standing hypertension and it could be a secondary hyperaldosteronism given that the patient has unprovoked hypokalemia. She is on Atenolol. I agree with adding Aldactone. If this does not work let us try potassium sparing diuretic such as amiloride. The patient's other comorbid conditions include diabetes mellitus type 2, hypothyroidism and CVA. Thank you very much for the consultation.
[2018-09-06] MEDS: NovoLOG Insulin SQ PRN ×2 (08:54→12:42)
[2018-09-06] MEDS: Aldactone 25 MG PO SCH (10:29)
[2018-09-06] MEDS: ENOXAPARIN SODIUM SQ SCH (10:32)
[2018-09-06] MEDS: TENORMIN 50 MG PO SCH ×2 (10:32→21:51)
[2018-09-06] MEDS: SYNTHROID 150 MCG PO SCH (10:33)
[2018-09-06] MEDS: Lantus Insulin SQ SCH (10:33)
[2018-09-06] MEDS: NYSTOP 30 GM CREAM TOP SCH ×2 (10:33→21:50)
--- NOTE | 2018-09-06 11:44 | PCM.NOTE ---
Date and Time: 09/06/18 1136 Subjective Assessment: Patient reports she continues to feel better. Some old records were obtained and it looks like in the past she was on spironolactone but I can't find any diagnosis to explain this. They also mention possible TIA vs seizure. She has not had any problems like that here. Nephrology saw her and they ordered a CT scan yesterday and are planning to get that done with contrast today as it was done without contrast yesterday. - Review of Systems Constitutional: No Symptoms Eyes: No Symptoms Ears, Nose, & Throat: No Symptoms Respiratory: No Symptoms Cardiac: No Symptoms Abdominal/Gastrointestinal: No Symptoms Genitourinary Symptoms: No Symptoms Musculoskeletal: No Symptoms Skin: No Symptoms Objective Exam General Appearance: no apparent distress, obese Neurologic Exam: alert, cooperative, normal mood/affect Skin Exam: normal color, warm, dry, No rash Respiratory Exam: normal breath sounds, lungs clear, No crackles/rales, No rhonchi, No wheezing Cardiovascular Exam: regular rate/rhythm, normal heart sounds, No murmur, No friction rub, No gallop Gastrointestinal/Abdomen Exam: soft, normal bowel sounds, No tenderness, No distention, No mass Extremity Exam: other (no c/c/e) OBJECTIVE DATA Vital Signs: Vital Signs - 24 hr Temp Pulse Resp BP BP Pulse Ox 09/06/18 10:32 73 153/71 09/06/18 08:00 98.7 F 73 12 153/71 97 09/06/18 04:00 98.3 F 66 18 185/77 94 L 09/06/18 00:00 98.4 F 72 18 157/71 95 09/05/18 21:47 80 172/81 09/05/18 19:52 98.5 F 80 19 172/81 95 09/05/18 16:00 98.5 F 57 L 14 176/70 97 09/05/18 12:00 98.5 F 62 15 156/95 97 Pain Assessment - Last Documented Pain Intensity 0 Pain Scale Used 0-10 Pain Scale Intake and Output: Intake & Output 09/04/18 09/05/18 09/06/18 09/07/18 06:59 06:59 06:59 06:59 Intake Total 1420 165 8762 Output Total 2400 1500 Balance -420 860 -380 Weight 78.2 kg 80 kg 80.6 kg Lab Results: Accuchecks Date 09/06/18 Date 09/06/18 Date 09/05/18 Time 07:30 Time 21:00 Time 17:12 Accucheck Value: 258 Accucheck Value: 148 Lab Results-Last 24 Hours 09/05/18 09/06/18 Range/Units 16:15 05:48 Sodium 142 (137-145) mmol/L Potassium 4.2 D 3.3 L D (3.5-5.1) mmol/L Chloride 100 (98-107) mmol/L Carbon Dioxide 32 H (22-30) mmol/L Anion Gap 11.9 (5-15) MEQ/L BUN 11 (7-17) mg/dL Creatinine 0.53 (0.52-1.04) mg/dL Estimated GFR > 60.0 ML/MIN Glucose 276 H (74-106) mg/dL Calcium 7.9 L (8.4-10.2) mg/dL Radiology Exams: Radiology Procedures Category Date Time Status ABDOMEN AND PELVIS W CONTRAST [CT] Stat Exams 09/06/18 11:12 Ordered ABDOMEN AND PELVIS W/0 CONTRAS [CT] Routine Exams 09/05/18 13:27 Completed Assessment/Plan (1) Hypokalemia Current Visit: Yes Status: Acute Assessment & Plan: Concerning for primary hyperaldosteronism. Nephrology has seen the patient and agrees with spironolactone and she is also now on potassium 40 meq tid. She is to have a CT scan of her abdomen with contrast today. CT scan yesterday was concerning for 3 round left renal masses but no adrenal masses. Renin and aldosterone levels ordered and sent out yesterday (Jayla in lab is checking to see when these results are expected). 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 I was hesitant to start her on her home stated dose of lantus 80 units as she has been a poor historian and I didn't want to cause hypoglycemia. Will increase lantus from 20 units to 30 units daily and also start novolog 4 units tid with meals. She is npo at this time for CT scan. Code(s): E11.65 - TYPE 2 DIABETES MELLITUS WITH HYPERGLYCEMIA (3) Hypothyroidism Current Visit: Yes Status: Acute Assessment & Plan: Levothyroxine was already adjusted due to her high TSH during this hospitalization. Repeat TSH as outpatient in 3-4 weeks. Code(s): E03.9 - HYPOTHYROIDISM, UNSPECIFIED (4) Tinea corporis Current Visit: Yes Status: Acute Assessment & Plan: Continue nystatin powder. Code(s): B35.4 - TINEA CORPORIS (5) Renal mass of unknown nature Current Visit: Yes Status: Acute Assessment & Plan: Awaiting contrasted CT scan of abd/pelvis. Code(s): N28.89 - OTHER SPECIFIED DISORDERS OF KIDNEY AND URETER
[2018-09-06] MEDS ORDERED: HOLD METFORMIN PRODUCTS FOR 48 HOURS MC SCH (12:15)
[2018-09-06] MEDS: NovoLOG Insulin SQ SCH ×2 (12:41→17:58)
--- NOTE | 2018-09-06 12:53 | XRAY ---
Indication: Left renal mass on noncontrast CT abdomen/pelvis one day earlier. Multiple contiguous axial images obtained through the abdomen and pelvis using 80 cc Isovue 300 contrast only. Comparison: Noncontrast exam one day earlier. Normal visceral enhancement and renal excretion. Stable tiny left mid renal angiomyolipoma. The 3 round left renal masses appear stable in size without abnormal enhancement. Again no hydronephrosis right ureter. Noncontrasted stomach and bowel loops remain nonobstructed. Again cholecystectomy, hysterectomy, and scattered aortoiliac calcifications. No pathologic retroperitoneal lymphadenopathy. Remaining liver, pancreas, spleen, adrenal glands, and bladder appear unremarkable. Impression: 1. Left renal masses do not demonstrate abnormal enhancement. Again suspect complex/viscus cysts and may be safely followed. Stable tiny left renal angiomyolipoma. 2. Remaining CT abdomen/pelvis with contrast exam is negative. CT DI 23.21
[2018-09-06] MEDS: MIDAMOR PO SCH (21:50)
[2018-09-06] MEDS: xanAX 0.5 MG PO SCH (21:54)
[2018-09-06] MEDS: ZOCOR 20MG PO SCH (21:54)
[2018-09-07 03:03] LABS: CREATININE,URINE RANDOM 154.8 MG/DL
[2018-09-07] MEDS: Sodium Chloride 0.9% 10 ML FLUSH Syringe IV SCH ×3 (05:45→21:33)
[2018-09-07 06:20] LABS: ANION GAP 11.9 MEQ/L (5-15); BLOOD UREA NITROGEN 14 mg/dL (7-17); CHLORIDE 103 mmol/L (98-107); Calcium 8.6 mg/dL (8.4-10.2); Carbon Dioxide 31 mmol/L (22-30); Creatinine 1 0.61 mg/dL (0.52-1.04); Glucose 263 mg/dL (74-106); SODIUM 142 mmol/L (137-145)
[2018-09-07 07:35] LABS: Potassium 4.3 mmol/L (3.5-5.1)
[2018-09-07] MEDS: NovoLOG Insulin SQ SCH ×3 (08:31→16:36)
[2018-09-07] MEDS: NovoLOG Insulin SQ PRN ×4 (08:32→21:33)
[2018-09-07] MEDS: Klor Con 10 MEQ PO SCH ×2 (09:49→15:31)
[2018-09-07] MEDS: ENOXAPARIN SODIUM SQ SCH (09:49)
[2018-09-07] MEDS: MIDAMOR PO SCH ×2 (09:50→21:31)
[2018-09-07] MEDS: SYNTHROID 150 MCG PO SCH (09:51)
[2018-09-07] MEDS: TENORMIN 50 MG PO SCH ×2 (09:51→21:31)
[2018-09-07] MEDS: NYSTOP 30 GM CREAM TOP SCH ×2 (09:52→21:32)
[2018-09-07] MEDS: Lantus Insulin SQ SCH (09:52)
[2018-09-07] MEDS ORDERED: Zestril 10 MG PO STA (11:48)
--- NOTE | 2018-09-07 15:50 | PCM.NOTE ---
Date and Time: 09/07/18 1544 Subjective Assessment: She tells me today that she knows she has an apartment to go to but she just has to get into it. Today her daughter came to the floor. She stated she hadn' t seen her mother for 20 years and did not even know she was in the area until the past day. She states that she and her sisters want to make sure she is safe. She reports only one of the patient's daughters has kept in contact with her. She would like information on how to make sure her mother will be safe when she is discharged. She went into talk to her mother. I saw her mother after this and Ms. Ferguson states she didn't recognize her and isn't sure she is her daughter. Her daughter had stated that Ms. Ferguson had been in contact with cousins in the area and they had contacted her or her sisters concerned about patient as at first they didn't even know where the patient had gone when she got admitted here but that they just couldn't find her. Patient denies any pain or problems with her appetite. Per nurses notes from Sabrina Fernandes, patient couldn't remember where her rash was that the nystatin was suppose to be put on. Daughter had also reported that per family, patient was not recognizing her own belongings when she was at home and that she had been found lost once in [place]. - Review of Systems Constitutional: No Symptoms Eyes: No Symptoms Ears, Nose, & Throat: No Symptoms Respiratory: No Symptoms Cardiac: No Symptoms Abdominal/Gastrointestinal: No Symptoms Genitourinary Symptoms: No Symptoms Musculoskeletal: No Symptoms Skin: No Symptoms Objective Exam General Appearance: no apparent distress, alert, obese Neurologic Exam: alert, cooperative, normal mood/affect Skin Exam: normal color, warm, dry, No rash Respiratory Exam: normal breath sounds, lungs clear, No crackles/rales, No rhonchi, No wheezing Cardiovascular Exam: regular rate/rhythm, normal heart sounds, No murmur, No friction rub, No gallop Gastrointestinal/Abdomen Exam: soft, normal bowel sounds, No tenderness, No distention, No mass Extremity Exam: other (no c/c/e) OBJECTIVE DATA Vital Signs: Vital Signs - 24 hr Temp Pulse Resp BP BP Pulse Ox 09/07/18 12:00 98.2 F 68 16 181/84 95 09/07/18 09:51 68 186/79 09/07/18 08:00 98.2 F 68 14 186/79 96 09/07/18 04:00 97.8 F 67 18 143/67 96 09/07/18 00:00 97.7 F 65 19 171/74 96 09/06/18 21:51 74 141/65 09/06/18 20:00 96.7 F 62 18 141/65 95 09/06/18 16:00 98.3 F 69 16 186/85 96 Pain Assessment - Last Documented Pain Intensity 0 Pain Scale Used 0-10 Pain Scale Intake and Output: Intake & Output 09/05/18 09/06/18 09/07/18 09/08/18 06:59 06:59 06:59 06:59 Intake Total 860 1120 510 360 Output Total 1500 900 600 Balance 860 -380 -390 -240 Weight 80 kg 80.6 kg 77.9 kg Lab Results: Accuchecks Date 09/07/18 Date 09/07/18 Date 09/06/18 Time 11:30 Time 07:30 Time 16:00 Accucheck Value: 236 Accucheck Value: 193 Accucheck Value: 119 Lab Results-Last 24 Hours 09/06/18 09/07/18 Range/Units 17:09 05:30 Sodium 142 (137-145) mmol/L Potassium 4.3 D (3.5-5.1) mmol/L Chloride 103 (98-107) mmol/L Carbon Dioxide 31 H (22-30) mmol/L Anion Gap 11.9 (5-15) MEQ/L BUN 14 (7-17) mg/dL Creatinine 0.61 (0.52-1.04) mg/dL Estimated GFR > 60.0 ML/MIN Glucose 263 H (74-106) mg/dL Calcium 8.6 (8.4-10.2) mg/dL Ur Random Creatinine 154.8 MG/DL Urine Sodium 172 H (30-90) mmol/L Radiology Exams: Radiology Procedures Category Date Time Status ABDOMEN AND PELVIS W CONTRAST [CT] Stat Exams 09/06/18 11:12 Completed Assessment/Plan (1) Hypokalemia Current Visit: Yes Status: Acute Assessment & Plan: Resolved now. Aldosterone level came back normal; She is on amiloride 5 mg po bid per weeder. I am going to cut back on her potassium to 40 meq once a day as her potassium is now 4.3. Will repeat labs in the AM. Code(s): E87.6 - HYPOKALEMIA (2) Type 2 diabetes mellitus with hyperglycemia Current Visit: Yes Status: Acute Qualifiers: Diabetes mellitus skilled nursing insulin use: with skilled nursing use Qualified Code( s): E11.65 - Type 2 diabetes mellitus with hyperglycemia; Z79.4 - [facility] ( current) use of insulin Assessment & Plan: Continue current treatment. Code(s): E11.65 - TYPE 2 DIABETES MELLITUS WITH HYPERGLYCEMIA (3) Hypothyroidism Current Visit: Yes Status: Acute Assessment & Plan: Dose of levothyroxine already adjusted for high TSH. Code(s): E03.9 - HYPOTHYROIDISM, UNSPECIFIED (4) Tinea corporis Current Visit: Yes Status: Acute Assessment & Plan: Continue nystatin. Code(s): B35.4 - TINEA CORPORIS (5) Renal mass of unknown nature Current Visit: Yes Status: Acute Assessment & Plan: Plan for her to follow up with urologist as outpatient. Code(s): N28.89 - OTHER SPECIFIED DISORDERS OF KIDNEY AND URETER (6) Memory impairment Current Visit: Yes Status: Acute Assessment & Plan: Will ask for [facility] consult for possible dementia. Encouraged her daughter to contact [facility] if she was worried about her safety. The information we have about this is 3rd hand. Code(s): R41.3 - OTHER AMNESIA
[2018-09-07] MEDS: ZOCOR 20MG PO SCH (21:31)
[2018-09-07] MEDS: xanAX 0.5 MG PO SCH (21:32)
[2018-09-08] MEDS: Sodium Chloride 0.9% 10 ML FLUSH Syringe IV SCH ×3 (05:30→22:09)
[2018-09-08 06:28] LABS: ANION GAP 11.9 MEQ/L (5-15); BLOOD UREA NITROGEN 18 mg/dL (7-17); CHLORIDE 103 mmol/L (98-107); Carbon Dioxide 29 mmol/L (22-30); Creatinine 1 0.56 mg/dL (0.52-1.04); Glucose 192 mg/dL (74-106); Potassium 4.2 mmol/L (3.5-5.1); SODIUM 140 mmol/L (137-145)
[2018-09-08] MEDS: NovoLOG Insulin SQ SCH ×3 (08:11→17:00)
[2018-09-08] MEDS ORDERED: Zestril 10 MG PO SCH (10:00)
[2018-09-08] MEDS: SYNTHROID 150 MCG PO SCH (10:30)
[2018-09-08] MEDS: TENORMIN 50 MG PO SCH ×2 (10:30→22:09)
[2018-09-08] MEDS: MIDAMOR PO SCH ×2 (10:30→22:08)
[2018-09-08] MEDS: ENOXAPARIN SODIUM SQ SCH (10:30)
[2018-09-08] MEDS: Lantus Insulin SQ SCH (10:31)
[2018-09-08] MEDS: Klor Con 10 MEQ PO SCH (10:33)
[2018-09-08] MEDS: NYSTOP 30 GM CREAM TOP SCH ×2 (10:34→22:09)
[2018-09-08] MEDS: Zestril 10 MG PO SCH (10:34)
[2018-09-08] MEDS: NovoLOG Insulin SQ PRN ×3 (11:50→22:11)
--- NOTE | 2018-09-08 12:45 | PCM.NOTE ---
Date and Time: 09/08/18 1241 Subjective Assessment: Patient states she thinks she is going to go back to [facility]. States she was waiting for her to help her make this decision. I said I thought he had and she said yes and that is why that won't work. She is talking about [place] I reminded her she had told us that had her car her with her belongings and she stated she didn't need all that stuff and had thought about getting rid of her belongings. She reports her diarrhea has started again but she is unable to quantify how often she is having diarrhea. - Review of Systems Constitutional: No Symptoms Eyes: No Symptoms Ears, Nose, & Throat: No Symptoms Respiratory: No Symptoms Cardiac: No Symptoms Abdominal/Gastrointestinal: Diarrhea, No Nausea, No Vomiting, No Constipation Genitourinary Symptoms: No Symptoms Musculoskeletal: No Symptoms Skin: No Symptoms Objective Exam General Appearance: no apparent distress, alert, obese Neurologic Exam: alert, cooperative, normal mood/affect Skin Exam: normal color, warm, dry, No rash Respiratory Exam: normal breath sounds, lungs clear, No crackles/rales, No rhonchi, No wheezing Cardiovascular Exam: regular rate/rhythm, normal heart sounds, No murmur, No friction rub, No gallop, No tachycardia Gastrointestinal/Abdomen Exam: soft, normal bowel sounds, No tenderness, No distention, No mass Extremity Exam: normal inspection, other (no c/c/e) OBJECTIVE DATA Vital Signs: Vital Signs - 24 hr Temp Pulse Resp BP BP BP Pulse Ox 09/08/18 12:00 98.3 F 74 18 169/74 95 09/08/18 10:30 67 187/81 09/08/18 08:00 18 09/08/18 07:47 98.2 F 67 18 182/81 96 09/08/18 04:00 97.7 F 69 16 153/67 97 09/07/18 23:59 97.6 F 72 18 194/75 98 09/07/18 21:31 70 178/72 09/07/18 20:00 98.4 F 70 18 178/72 92 L 09/07/18 16:51 97.8 F 96 H 20 174/88 98 09/07/18 16:00 16 Pain Assessment - Last Documented Pain Intensity 5 Pain Scale Used 0-10 Pain Scale Intake and Output: Intake & Output 09/06/18 09/07/18 09/08/18 09/09/18 06:59 06:59 06:59 06:59 Intake Total 1120 510 510 Output Total 1500 900 600 Balance -380 -390 -90 Weight 80.6 kg 77.9 kg 77.8 kg Lab Results: Accuchecks Date 09/08/18 Date 09/08/18 Date 09/07/18 Time 11:30 Time 05:00 Time 16:30 Accucheck Value: 241 Accucheck Value: 192 Accucheck Value: 217 Accucheck Value: 216 Lab Results-Last 24 Hours 09/04/18 09/08/18 Range/Units 08:00 05:30 Sodium 140 (137-145) mmol/L Potassium 4.2 (3.5-5.1) mmol/L Chloride 103 (98-107) mmol/L Carbon Dioxide 29 (22-30) mmol/L Anion Gap 11.9 (5-15) MEQ/L BUN 18 H (7-17) mg/dL Creatinine 0.56 (0.52-1.04) mg/dL Estimated GFR > 60.0 ML/MIN Glucose 192 H (74-106) mg/dL Calcium 9.0 (8.4-10.2) mg/dL Renin 0.2 ng/mL/hr Assessment/Plan (1) Hypokalemia Current Visit: Yes Status: Acute Assessment & Plan: Currently resolved on 40 Meq potassium daily and amiloride bid. Nephrology is following. Code(s): E87.6 - HYPOKALEMIA (2) Type 2 diabetes mellitus with hyperglycemia Current Visit: Yes Status: Acute Qualifiers: Diabetes mellitus assisted insulin use: with assisted use Qualified Code( s): E11.65 - Type 2 diabetes mellitus with hyperglycemia; Z79.4 - watermaster ( current) use of insulin Assessment & Plan: Will plan to increase lantus due to hyperglycemia. Code(s): E11.65 - TYPE 2 DIABETES MELLITUS WITH HYPERGLYCEMIA (3) Hypothyroidism Current Visit: Yes Status: Acute Assessment & Plan: levothyroxine already adjusted during her hospitalization. Code(s): E03.9 - HYPOTHYROIDISM, UNSPECIFIED (4) Tinea corporis Current Visit: Yes Status: Acute Code(s): B35.4 - TINEA CORPORIS (5) Renal mass of unknown nature Current Visit: Yes Status: Acute Assessment & Plan: Plan for outpatient urology follow up. Code(s): N28.89 - OTHER SPECIFIED DISORDERS OF KIDNEY AND URETER (6) Memory impairment Current Visit: Yes Status: Acute Assessment & Plan: [facility] consulted for dementia evaluation. Discharge planning involved. Patient agreeable to home health. Code(s): R41.3 - OTHER AMNESIA (7) Diarrhea Current Visit: Yes Status: Acute Assessment & Plan: Blood work was negative for celiac disease; may need colonoscopy as outpatient. Code(s): R19.7 - DIARRHEA, UNSPECIFIED
[2018-09-08] MEDS: ZOCOR 20MG PO SCH (22:11)
[2018-09-08] MEDS: xanAX 0.5 MG PO SCH (22:11)
[2018-09-09 05:57] LABS: BLOOD UREA NITROGEN 24 mg/dL (7-17); CHLORIDE 105 mmol/L (98-107); Calcium 9.3 mg/dL (8.4-10.2); Carbon Dioxide 30 mmol/L (22-30); Creatinine 1 0.64 mg/dL (0.52-1.04); Glucose 205 mg/dL (74-106); Potassium 4.7 mmol/L (3.5-5.1); SODIUM 139 mmol/L (137-145)
[2018-09-09] MEDS: ENOXAPARIN SODIUM SQ SCH (07:55)
[2018-09-09] MEDS: Zestril 10 MG PO SCH (07:55)
[2018-09-09] MEDS: Klor Con 10 MEQ PO SCH (07:55)
[2018-09-09] MEDS: NYSTOP 30 GM CREAM TOP SCH ×2 (07:56→22:17)
[2018-09-09] MEDS: TENORMIN 50 MG PO SCH ×2 (07:56→22:18)
[2018-09-09] MEDS: Lantus Insulin SQ SCH (07:58)
[2018-09-09] MEDS: NovoLOG Insulin SQ PRN ×4 (07:59→22:20)
[2018-09-09] MEDS: Sodium Chloride 0.9% 10 ML FLUSH Syringe IV SCH ×3 (07:59→22:18)
[2018-09-09] MEDS: NovoLOG Insulin SQ SCH ×3 (07:59→16:10)
[2018-09-09] MEDS: SYNTHROID 150 MCG PO SCH (08:00)
--- NOTE | 2018-09-09 08:53 | PCM.NOTE ---
Date and Time: 09/09/1848 Subjective Assessment: Awaiting [facility] evaluation. She reports a little low back pain. Good appetite. She states she hasn't had as much diarrhea yesterday. She is asking why there are cars parked outside. - Review of Systems Constitutional: No Symptoms Eyes: No Symptoms Ears, Nose, & Throat: No Symptoms Respiratory: No Symptoms Cardiac: No Symptoms Abdominal/Gastrointestinal: No Symptoms Genitourinary Symptoms: No Symptoms Musculoskeletal: Back Pain Skin: No Symptoms Objective Exam General Appearance: no apparent distress, alert, obese Neurologic Exam: alert, cooperative Skin Exam: normal color, warm, dry, No rash Respiratory Exam: normal breath sounds, lungs clear, No crackles/rales, No rhonchi, No wheezing Cardiovascular Exam: regular rate/rhythm, normal heart sounds, No murmur, No friction rub, No gallop Extremity Exam: other (no c/c/e) OBJECTIVE DATA Vital Signs: Vital Signs - 24 hr Temp Pulse Resp BP BP Pulse Ox 09/09/18 08:00 18 09/09/18 07:56 77 192/74 09/09/18 07:53 98.4 F 69 18 192/74 96 09/09/18 04:00 97.7 F 73 16 151/65 99 09/09/18 00:00 97.9 F 66 22 157/71 97 09/08/18 22:09 75 129/87 09/08/18 20:00 98 F 77 17 129/87 91 L 09/08/18 16:00 98.2 F 70 18 155/65 96 09/08/18 12:00 98.3 F 74 18 169/74 95 09/08/18 10:30 67 187/81 Pain Assessment - Last Documented Pain Intensity 5 Pain Scale Used 0-10 Pain Scale Intake and Output: Intake & Output 09/07/18 09/08/18 09/09/18 09/10/18 06:59 06:59 06:59 06:59 Intake Total 510 510 340 Output Total 900 600 600 Balance -390 -90 -260 Weight 77.9 kg 77.8 kg 77.7 kg Lab Results: Accuchecks Date 09/09/18 Date 09/08/18 Date 09/08/18 Time 05:00 Time 16:30 Time 11:30 Accucheck Value: 232 Accucheck Value: 215 Accucheck Value: 241 Lab Results-Last 24 Hours 09/09/18 Range/Units 05:20 Sodium 139 (137-145) mmol/L Potassium 4.7 (3.5-5.1) mmol/L Chloride 105 (98-107) mmol/L Carbon Dioxide 30 (22-30) mmol/L Anion Gap 9.0 (5-15) MEQ/L BUN 24 H (7-17) mg/dL Creatinine 0.64 (0.52-1.04) mg/dL Estimated GFR > 60.0 ML/MIN Glucose 205 H (74-106) mg/dL Calcium 9.3 (8.4-10.2) mg/dL Assessment/Plan (1) Hypokalemia Current Visit: Yes Status: Acute Assessment & Plan: Resolved with amiloride and potassium. Will decrease potassium to 20 meq daily today. Nephrology following. 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 Code(s): E11.65 - TYPE 2 DIABETES MELLITUS WITH HYPERGLYCEMIA (3) Hypothyroidism Current Visit: Yes Status: Acute Assessment & Plan: Her dose of levothyroxine has already been adjusted. Plan to recheck in about 4 weeks. Code(s): E03.9 - HYPOTHYROIDISM, UNSPECIFIED (4) Tinea corporis Current Visit: Yes Status: Acute Code(s): B35.4 - TINEA CORPORIS (5) Renal mass of unknown nature Current Visit: Yes Status: Acute Assessment & Plan: Plan for urology follow up as outpatient per nephrology recommendations. Code(s): N28.89 - OTHER SPECIFIED DISORDERS OF KIDNEY AND URETER (6) Memory impairment Current Visit: Yes Status: Acute Assessment & Plan: [facility] reevaluating today. Code(s): R41.3 - OTHER AMNESIA (7) Diarrhea Current Visit: Yes Status: Acute Assessment & Plan: Continue to monitor. Code(s): R19.7 - DIARRHEA, UNSPECIFIED
[2018-09-09] MEDS: MIDAMOR PO SCH ×2 (11:07→22:17)
[2018-09-09] MEDS: ZOCOR 20MG PO SCH (22:20)
[2018-09-09] MEDS: xanAX 0.5 MG PO SCH (22:20)
[2018-09-09] MEDS: TYLENOL 325 MG PO PRN (22:20)
[2018-09-10] MEDS: Sodium Chloride 0.9% 10 ML FLUSH Syringe IV SCH ×3 (05:35→22:00)
[2018-09-10] MEDS: TYLENOL 325 MG PO PRN (05:37)
[2018-09-10 06:10] LABS: ANION GAP 13.7 MEQ/L (5-15); BLOOD UREA NITROGEN 26 mg/dL (7-17); CHLORIDE 104 mmol/L (98-107); Calcium 9.4 mg/dL (8.4-10.2); Carbon Dioxide 25 mmol/L (22-30); Creatinine 1 0.65 mg/dL (0.52-1.04); Glucose 200 mg/dL (74-106); Potassium 4.5 mmol/L (3.5-5.1); SODIUM 138 mmol/L (137-145)
[2018-09-10] MEDS: NovoLOG Insulin SQ SCH ×3 (08:03→16:26)
--- NOTE | 2018-09-10 08:48 | PCM.NOTE ---
Date and Time: 09/10/18 0843 Subjective Assessment: [facility] note reviewed. It does not look like this was staffed with their psychiatrist. Patient states her back itches. She's not holding her breath if she is going home. When I asked her where she was she went off on a tangent and the same thing when I asked her what year it was. I then told her that I needed to know if she knew these answers and if she didn't to just tell me she didn't know. She was then able to tell me she was in [place] and the year was 2019. When I asked her her full name, she again went off on a tangent and did not answer. She states she feels cold. No other concerns. - Review of Systems Constitutional: Other (feels cold) Eyes: No Symptoms Ears, Nose, & Throat: No Symptoms Respiratory: No Symptoms Cardiac: No Symptoms Abdominal/Gastrointestinal: No Symptoms Genitourinary Symptoms: No Symptoms Musculoskeletal: No Symptoms Skin: No Symptoms Psychological: Memory Loss Objective Exam General Appearance: no apparent distress, obese Neurologic Exam: alert, cooperative, other (oriented x 2 after asking two times. Will not give her name. States she doesn't know who would pick her up if she was discharged.) Respiratory Exam: normal breath sounds, lungs clear Cardiovascular Exam: regular rate/rhythm, normal heart sounds, No murmur, No friction rub, No gallop Gastrointestinal/Abdomen Exam: soft Extremity Exam: other (no c/c/e) OBJECTIVE DATA Vital Signs: Vital Signs - 24 hr Temp Pulse Resp BP BP Pulse Ox 09/10/18 07:18 18 09/10/18 06:55 98.4 F 63 18 142/65 98 09/10/18 04:00 98.6 F 60 20 131/61 97 09/09/18 23:43 98.3 F 66 18 134/60 96 09/09/18 22:18 72 168/61 09/09/18 19:58 97.4 F 76 18 168/61 98 09/09/18 15:39 18 09/09/18 15:17 97.8 F 70 18 132/68 96 09/09/18 11:43 18 09/09/18 11:37 97.5 F 72 18 127/69 96 Pain Assessment - Last Documented Pain Intensity 5 Pain Scale Used [facility] Intake and Output: Intake & Output 09/08/18 09/09/18 09/10/18 09/11/18 06:59 06:59 06:59 06:59 Intake Total 510 340 760 Output Total 991 767 2977 Balance -90 -260 -465 Weight 77.8 kg 77.7 kg 77.6 kg Lab Results: Accuchecks Date 09/10/18 Date 09/09/18 Date 09/09/18 Time 07:14 Time 16:30 Time 11:30 Accucheck Value: 113 Accucheck Value: 268 Accucheck Value: 273 Accucheck Value: 226 Lab Results-Last 24 Hours 09/10/18 Range/Units 05:26 Sodium 138 (137-145) mmol/L Potassium 4.5 (3.5-5.1) mmol/L Chloride 104 (98-107) mmol/L Carbon Dioxide 25 (22-30) mmol/L Anion Gap 13.7 (5-15) MEQ/L BUN 26 H (7-17) mg/dL Creatinine 0.65 (0.52-1.04) mg/dL Estimated GFR > 60.0 ML/MIN Glucose 200 H (74-106) mg/dL Calcium 9.4 (8.4-10.2) mg/dL Assessment/Plan (1) Hypokalemia Current Visit: Yes Status: Acute Assessment & Plan: Resolved. Continue current medication. Code(s): E87.6 - HYPOKALEMIA (2) Type 2 diabetes mellitus with hyperglycemia Current Visit: Yes Status: Acute Qualifiers: Diabetes mellitus snf insulin use: with oysterman use Qualified Code( s): E11.65 - Type 2 diabetes mellitus with hyperglycemia; Z79.4 - technician terminal and repeater ( current) use of insulin Assessment & Plan: Better controlled this AM with changes in her medication. Code(s): E11.65 - TYPE 2 DIABETES MELLITUS WITH HYPERGLYCEMIA (3) Hypothyroidism Current Visit: Yes Status: Acute Assessment & Plan: Dose of levothyroxine already adjusted during this hospitalization. Code(s): E03.9 - HYPOTHYROIDISM, UNSPECIFIED (4) Tinea corporis Current Visit: Yes Status: Acute Assessment & Plan: Continue nystatin cream. Code(s): B35.4 - TINEA CORPORIS (5) Renal mass of unknown nature Current Visit: Yes Status: Acute Code(s): N28.89 - OTHER SPECIFIED DISORDERS OF KIDNEY AND URETER (6) Memory impairment Current Visit: Yes Status: Acute Assessment & Plan: I am not comfortable discharging her to home as I don't know who or if someone is going to be with her to make sure she is safe in her current environment. She gives differing answers to questions and does not seem to have a clear plan for herself when she is discharged. Discharge planning is going to check into Ger[facility] inpatient stay for her. I would ask if they do not take her that Adult Protective Services sees her before she is discharged to make sure she is safe at home. She may have some underlying dementia vs. psychiatric disorder and needs further evaluation from a psychiatrist. That service is not available at this [facility] as we have asked for [facility] to evaluate and their evaluations have not been staffed with a psychiatrist. Code(s): R41.3 - OTHER AMNESIA (7) Diarrhea Current Visit: Yes Status: Acute Assessment & Plan: Patient reports improved. Blood tests were negative for celiac disease. Code(s): R19.7 - DIARRHEA, UNSPECIFIED
[2018-09-10] MEDS: TENORMIN 50 MG PO SCH ×2 (09:11→21:14)
[2018-09-10] MEDS: ENOXAPARIN SODIUM SQ SCH (09:11)
[2018-09-10] MEDS: Zestril 10 MG PO SCH (09:11)
[2018-09-10] MEDS: MIDAMOR PO SCH ×2 (09:12→21:13)
[2018-09-10] MEDS: SYNTHROID 150 MCG PO SCH (09:12)
[2018-09-10] MEDS: Lantus Insulin SQ SCH (09:12)
[2018-09-10] MEDS: NYSTOP 30 GM CREAM TOP SCH ×2 (09:12→21:13)
[2018-09-10] MEDS ORDERED: Klor Con 10 MEQ PO SCH (10:00)
[2018-09-10] MEDS: NovoLOG Insulin SQ PRN ×2 (11:34→21:30)
[2018-09-10] MEDS: ZOCOR 20MG PO SCH (21:14)
[2018-09-10] MEDS: xanAX 0.5 MG PO SCH (21:14)
[2018-09-11 05:34] LABS: ANION GAP 10.2 MEQ/L (5-15); BLOOD UREA NITROGEN 24 mg/dL (7-17); CHLORIDE 103 mmol/L (98-107); Calcium 9.3 mg/dL (8.4-10.2); Carbon Dioxide 30 mmol/L (22-30); Creatinine 1 0.75 mg/dL (0.52-1.04); Glucose 176 mg/dL (74-106); Potassium 4.7 mmol/L (3.5-5.1); SODIUM 139 mmol/L (137-145)
[2018-09-11] MEDS: Sodium Chloride 0.9% 10 ML FLUSH Syringe IV SCH ×3 (08:00→21:44)
[2018-09-11] MEDS: NovoLOG Insulin SQ SCH ×3 (08:00→16:25)
--- NOTE | 2018-09-11 08:36 | PCM.NOTE ---
Date and Time: 09/11/1831 Subjective Assessment: I discussed with patient today that we would like for her to go somewhere to see a psychiatrist to help evaluate her memory and make sure she is safe when she goes home. Patient stated "I want to go home. I don't want you or any one else" and then a long pause "and I meant that exactly the way I said it". Nursing reports 2 of her daughters were in to see her and talk with discharge planning/nursing and they report she has a 2nd floor apartment and they will work on getting this changed to a first floor apartment but they are concerned about her safety at home and think she would be safest in a nursing facility. [place] with discharge planning says neither daughter wants her to stay with them. In my opinion given the different answers to questions she has given during this hospitalization, I have concerns for her safety as well and whether or not she is competent to make her own medical decisions. We continue to work on placement for her in a geropsych facility. If she refuses to go, I could sign ED papers to let the manager gaming decide if she is safe to go home. I have asked discharge planning to also contact APS as we have concerns about her living alone. I have also asked that the long term care social worker be consulted. Patient states sugar is getting stuck in her throat today. She is drinking coffee and asking for tea. She has an iced tea on her tray which I pointed out and she states she doesn't want that. I asked her if she would like hot tea and she says I just want regular tea. I notified her nurse that she would like regular tea. - Review of Systems Constitutional: No Symptoms Eyes: No Symptoms Ears, Nose, & Throat: No Symptoms Respiratory: No Symptoms Cardiac: No Symptoms Abdominal/Gastrointestinal: No Symptoms Genitourinary Symptoms: No Symptoms Musculoskeletal: No Symptoms Skin: No Symptoms Objective Exam General Appearance: no apparent distress, alert, obese Neurologic Exam: alert, other (seems agitated with questions today) Skin Exam: normal color, warm Respiratory Exam: normal breath sounds, lungs clear, No crackles/rales, No rhonchi, No wheezing Cardiovascular Exam: regular rate/rhythm, normal heart sounds, No murmur, No friction rub, No gallop Gastrointestinal/Abdomen Exam: soft Extremity Exam: other (no c/c/e) OBJECTIVE DATA Vital Signs: Vital Signs - 24 hr Temp Pulse Resp BP BP Pulse Ox 09/11/18 07:25 97.6 F 78 20 136/80 96 09/11/18 04:00 98.5 F 66 16 124/71 97 09/11/18 00:00 98.7 F 69 16 119/61 97 09/10/18 21:14 93 H 128/74 09/10/18 20:00 98.7 F 73 16 128/74 09/10/18 16:00 16 09/10/18 15:49 98.2 F 70 18 123/49 96 09/10/18 11:35 16 09/10/18 11:13 98.3 F 70 18 140/82 95 09/10/18 09:11 72 Pain Assessment - Last Documented Pain Intensity 5 Pain Scale Used [facility] Intake and Output: Intake & Output 09/09/18 09/10/18 09/11/18 09/12/18 06:59 06:59 06:59 06:59 Intake Total 340 760 340 Output Total 600 1225 700 Balance -260 -527 -360 Weight 77.7 kg 77.6 kg 78 kg Lab Results: Accuchecks Date 09/11/18 Date 09/10/18 Date 09/10/18 Date 09/10/18 Time 07:52 Time 21:50 Time 16:40 Time 11:34 Accucheck Value: 176 Accucheck Value: 211 Accucheck Value: 203 Accucheck Value: 229 Lab Results-Last 24 Hours 09/11/18 Range/Units 04:55 Sodium 139 (137-145) mmol/L Potassium 4.7 (3.5-5.1) mmol/L Chloride 103 (98-107) mmol/L Carbon Dioxide 30 (22-30) mmol/L Anion Gap 10.2 (5-15) MEQ/L BUN 24 H (7-17) mg/dL Creatinine 0.75 (0.52-1.04) mg/dL Estimated GFR > 60.0 ML/MIN Glucose 176 H (74-106) mg/dL Calcium 9.3 (8.4-10.2) mg/dL Multi-Disciplinary Progress Notes: Multi-Disciplinary Progress Notes 09/10/18 10:00 Case Management Note by Alba Murdock BENEFITS SPECIALIST RETURNED TO HOSPITAL FROM [facility], AND DISCUSSED THAT AFTER TALKING WITH HER FRONT DESK MONITOR, THEY HAVE ALSO, DECIDED THAT PT COULD BENEFIT FROM [facility] VISIT. DISCUSSED WITH BENEFITS SPECIALIST THAT WE HAVE ALREADY MADE REFERRAL FOR [facility] STAY. REPORTS THAT THEY WILL ALSO, STAFF THIS WITH THEIR PSYCHIATRIST, BUT WOULD LIKELY RECOMMEND [facility] BECAUSE THEY DO HAVE A GERIATRIC UNIT. Initialized on 09/10/18 10:00 - END OF NOTE Assessment/Plan (1) Hypokalemia Current Visit: Yes Status: Acute Assessment & Plan: Resolved, will discontinue blood draws and plan to recheck potassium in one week. Etiology is unclear. Her lab work was negative for primary hyperaldosteronism. She does not seem to have enough diarrhea/low stools at this point to have caused the hypokalemia. I'm not sure what her diet was like at home and perhaps she had poor intake of nutritional foods. Nephrology did see her while she was here. 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 Code(s): E11.65 - TYPE 2 DIABETES MELLITUS WITH HYPERGLYCEMIA (3) Hypothyroidism Current Visit: Yes Status: Acute Assessment & Plan: Her levothyroxine has already been adjusted when she was here. Code(s): E03.9 - HYPOTHYROIDISM, UNSPECIFIED (4) Tinea corporis Current Visit: Yes Status: Acute Assessment & Plan: Continue topical antifungal. Code(s): B35.4 - TINEA CORPORIS (5) Renal mass of unknown nature Current Visit: Yes Status: Acute Assessment & Plan: Plan for follow up with urology as outpatient. Code(s): N28.89 - OTHER SPECIFIED DISORDERS OF KIDNEY AND URETER (6) Memory impairment Current Visit: Yes Status: Acute Assessment & Plan: [facility] has recommended that she go to a geriatric psychiatry facility for evaluation and treatment. Discharge planning is working on finding a facility in her network that will accept her. Will contact APS and also consult long term care social worker. Code(s): R41.3 - OTHER AMNESIA (7) Diarrhea Current Visit: Yes Status: Acute Code(s): R19.7 - DIARRHEA, UNSPECIFIED
[2018-09-11] MEDS: ENOXAPARIN SODIUM SQ SCH (09:03)
[2018-09-11] MEDS: TENORMIN 50 MG PO SCH ×2 (09:04→21:39)
[2018-09-11] MEDS: Lantus Insulin SQ SCH (09:05)
[2018-09-11] MEDS: MIDAMOR PO SCH ×2 (09:05→21:50)
[2018-09-11] MEDS: SYNTHROID 150 MCG PO SCH (09:05)
[2018-09-11] MEDS: Zestril 10 MG PO SCH (09:05)
[2018-09-11] MEDS: NYSTOP 30 GM CREAM TOP SCH ×2 (09:05→21:55)
[2018-09-11] MEDS: Klor Con 10 MEQ PO SCH (09:06)
[2018-09-11] MEDS: NovoLOG Insulin SQ PRN ×2 (11:03→21:41)
[2018-09-11 12:30] LABS: Folate (Folic Acid) 17.7 ng/mL (2.76 - >20)
[2018-09-11] MEDS: ZOCOR 20MG PO SCH (21:39)
[2018-09-11] MEDS: xanAX 0.5 MG PO SCH (21:41)
[2018-09-12] MEDS: Sodium Chloride 0.9% 10 ML FLUSH Syringe IV SCH ×2 (05:01→13:36)
--- NOTE | 2018-09-12 07:50 | PCM.DCORD ---
- Discharge Discharge Date: 09/12/18 Disposition: HOME HEALTH SERVICE Condition: Good Prescriptions: New Potassium Chloride 10 Meq Tab* [Klor Con 10 MEQ] 10 meq PO DAILY #30 tab Insulin Glargine [Lantus Insulin] 30 unit SQ QAM unit Amiloride HCl [Midamor] 5 mg PO BID #60 tablet Insulin Aspart [NovoLOG Insulin] 6 unit SQ TIDWM #10 ml Nystatin Cream 30 gm [Nystop 30 gm Cream] 1 gm TOP BID #120 g Levothyroxine Sodium 150 Mcg [Synthroid 150 Mcg] 150 mcg PO QAM #30 tablet Lisinopril 10 mg [Zestril 10 MG] 20 mg PO DAILY 1 Days #30 tablet Continue Pravastatin Sodium 20 mg PO DAILY Atenolol 100 mg PO BID Alprazolam 0.5 mg [xanAX 0.5 MG] 0.5 mg PO DAILY Discontinued Levothyroxine Sodium 137 mcg PO DAILY Insulin Glargine [Lantus Insulin] 80 units SQ HS Additional Instructions: Home Health care Follow up with: FRANSISCO LOPEZ MD [CONSULTING PHYSICIAN] - 1 Week ATIYA BUSTILLO [ACTIVE STAFF] - 1 Week
[2018-09-12] MEDS: NovoLOG Insulin SQ SCH ×2 (08:04→11:21)
[2018-09-12] MEDS: Zestril 10 MG PO SCH (10:11)
[2018-09-12] MEDS: SYNTHROID 150 MCG PO SCH (10:11)
[2018-09-12] MEDS: TENORMIN 50 MG PO SCH (10:11)
[2018-09-12] MEDS: Klor Con 10 MEQ PO SCH (10:11)
[2018-09-12] MEDS: MIDAMOR PO SCH (10:12)
[2018-09-12] MEDS: NYSTOP 30 GM CREAM TOP SCH (10:12)
[2018-09-12] MEDS: Lantus Insulin SQ SCH ×3 (10:14→11:22)
[2018-09-12] MEDS: ENOXAPARIN SODIUM SQ SCH (10:15)
[2018-09-12] MEDS: NovoLOG Insulin SQ PRN (11:21)
[2018-09-12 12:28] VITALS: BP 120/68; PULSE 78; O2SAT 96
[2018-09-12 15:05] LABS: RPR Screen Non Reactive (Non Reactive)
== END 2018-09-12 14:56 | disposition home health service (06) | DRG 641 ==
LOC: ED 16:24 → MED SURG 16:33 → OBSVTOIN 09-04 16:33
PROVIDERS: ADMIT Internal Medicine; ATTEND Internal Medicine
DX: E87.6 Hypokalemia (principal); R19.7 Diarrhea, unspecified; E11.65 Type 2 diabetes mellitus with hyperglycemia; E03.9 Hypothyroidism, unspecified; Z79.01 Long term (current) use of anticoagulants; Z86.73 Personal history of transient ischemic attack (TIA), and cerebral infarction without residual deficits; I10 Essential (primary) hypertension; R10.30 Lower abdominal pain, unspecified; Z79.4 Long term (current) use of insulin; Z79.899 Other long term (current) drug therapy; F03.90 Unspecified dementia, unspecified severity, without behavioral disturbance, psychotic disturbance, mood disturbance, and anxiety; B35.4 Tinea corporis; N28.89 Other specified disorders of kidney and ureter; M54.5 Low back pain
CPT/HCPCS: 36000; 36415; 70450; 71045; 74176; 74177; 80048; 80053; 81001; 82088; 82150; 82570; 82607; 82746; 82784; 82805; 82962; 83036; 83516; 83605; 83690; 83735; 84132; 84133; 84244; 84300; 84443; 84484; 85025; 86592; 86593; 86780; 90791; 93005; 93268; 94762; 96360; 96361; 96365; 99285; G0378; Q3014; J1650; J3475; J3480; A9270-GY

== ENCOUNTER 2018-09-12 22:56 | Observation (INO) | payer MEDICARE ==
[~2018-09-12 22:56] MED LIST: Aricept 10 MG ONE; TENORMIN 50 MG ONE; ZOCOR 20MG ONE; xanAX 0.5 MG ONE
--- NOTE | 2018-09-13 00:43 | ERPHSYRPT ---
- History of Present Illness Source: patient, family Exam Limitations: clinical condition Patient Subjective Stated Complaint: Confusion Triage Nursing Assessment: Patient's brought back to ED via w/c at this time and transferred with assist of 1. Patient Alert to self and place. Patient states the year is 1979. Patient impulsive with questions and hostile at times. Patient's family report patient discharged from [facility] around 1430 to her apartment where she lives alone. Patient's daughter received phone call from patient's landlord. Patient was found at neighbor's aparment in the bathroom. Police and EMS were called. Patient did have to go down one flight of stairs and up a flight of stairs. Patient doesn't recall events. Patient states she has pain in BLE 08/04. Lungs clear a/p lynne. No edema noted. Timing/Duration: today Severity of Symptoms-Max: moderate Severity of Symptoms-Current: moderate Context related to: living circumstances Associated Symptoms: confused, No frustrated, No hostile, No hallucinating, No injury Hx Tetanus, Diphtheria Vaccination/Date Given: No Hx Influenza Vaccination/Date Given: Yes Hx Pneumococcal Vaccination/Date Given: Yes Immunizations Up to Date: Yes <GERARDO BOONE - Last Filed: 09/13/18 06:49> <TRES LOPEZ - Last Filed: 09/13/18 14:11> - History of Present Illness Time Seen by Provider: 09/12/18 23:45 Physician History: 78 y/o white female discharged today at approx 3pm after a 9 day stay in hospital. on d/c summary condition labeled as good. home health was being scheduled for her. daughter admits to pt being docile and only mildly confused at discharge. pts daughter went to apartment to check on her and pt was not in apartment. she was in a gentleman's apartment and would not leave. she was confused and had likely been wandering around for several hours per daughter. pts daughter states pt has been dx with dementia and borderline personality d/ o. pt is diabetic and has renal insufficiency issues (GERARDO BOONE) Allergies/Adverse Reactions: codeine Allergy (Verified 09/12/18 23:31) methadone Allergy (Verified 09/12/18 23:31) mold Allergy (Verified 09/12/18 23:31) Penicillins Allergy (Verified 09/12/18 23:31) propoxyphene [From Darvon] Allergy (Verified 09/12/18 23:31) Home Medications: Alprazolam 0.5 mg [xanAX 0.5 MG] 0.5 mg PO DAILY 09/02/18 [History] Atenolol 100 mg PO BID 09/02/18 [History] Pravastatin Sodium 20 mg PO DAILY 09/02/18 [History] - Past Medical History Pertinent Past Medical History: Yes Neurological History: Migraines, Peripheral Neuropathy, Stroke ENT History: Cataracts Cardiac History: Arrhythmia, Hypertension Respiratory History: Other Endocrine Medical History: Diabetes Type II Musculoskeletal History: Arthritis GI Medical History: GERD, Ulcer History: No Pertinent History Psycho-Social History: Depression Female Reproductive Disorders: Abnormal Uterine Bleeding Other Medical History: 'SPOT ON LUNG" WHEN YOUNG - Past Surgical History Past Surgical History: Yes Cardiac: No Pertinent History Respiratory: No Pertinent History Gastrointestinal: Cholecystectomy Genitourinary: No Pertinent History Musculoskeletal: No Pertinent History Female Surgical History: Hysterectomy - Social History Smoking Status: Never smoker Exposure to second hand smoke: No Drug Use: none Patient Lives Alone: Yes - Female History Hx Last Menstrual Period: Menopausal <GERARDO BOONE - Last Filed: 09/13/18 06:49> - Review of Systems Constitutional: No Symptoms Eyes: No Symptoms Ears, Nose, & Throat: No Symptoms Respiratory: No Symptoms Cardiac: No Symptoms Abdominal/Gastrointestinal: No Symptoms Genitourinary Symptoms: No Symptoms Musculoskeletal: No Symptoms Skin: No Symptoms Neurological: Other (confused) Psychological: No Symptoms Endocrine: No Symptoms Hematologic/Lymphatic: No Symptoms Immunological/Allergic: No Symptoms All Other Systems: Reviewed and Negative <GERARDO BOONE - Last Filed: 09/13/18 06:49> - Physical Exam General Appearance: no apparent distress, alert Eyes, Ears, Nose, Throat Exam: normal ENT inspection, moist mucous membranes Neck Exam: normal inspection, non-tender, supple, full range of motion Respiratory Exam: normal breath sounds, lungs clear, airway intact, No chest tenderness, No respiratory distress, No accessory muscle use, No rhonchi, No wheezing, No stridor Cardiovascular Exam: regular rate/rhythm, normal heart sounds, normal peripheral pulses Gastrointestinal/Abdominal Exam: soft, normal bowel sounds, No tenderness Extremities Exam: normal inspection, normal range of motion, No evidence of injury Neurological Exam: alert, normal mood/affect, calm, office administrative assistant II-XII nml as tested, oriented x 3 Appearance: impaired insight Behavior/Eye Contact/Speech: alert & cooperative, cooperative, good eye contact , normal speech Thoughts/Hallucinations: delusions Skin Exam: normal color, warm, dry SpO2 Interpretation: normal SpO2: 98 O2 Delivery: Room Air <GERARDO BOONE - Last Filed: 09/13/18 06:49> - Nursing Vital Signs Nursing Vital Signs: Initial Vital Signs Temperature 98.1 F 09/12/18 23:33 Pulse Rate 75 09/12/18 23:33 Respiratory Rate 19 09/12/18 23:33 Blood Pressure 164/82 09/12/18 23:33 O2 Sat by Pulse Oximetry 97 09/12/18 23:33 Pain Scale Pain Intensity 0 Ordered Tests: Active Orders 24 hr Category Date Time Status Tea Bag Packer STAT Care 09/12/18 23:57 Active Catheter-[place] Sald[place] STAT Care 09/12/18 23:56 Active IV Insertion STAT Care 09/12/18 23:56 Active 1800 Calorie ADA Diet 09/13/18 Lunch Active HEAD WITHOUT CONTRAST [CT] Stat Exams 09/12/18 23:57 Completed Lactic Acid Stat Lab 09/12/18 23:56 Completed UA W/RFX UR CULTURE Stat Lab 09/13/18 01:20 Completed Medication Summary Generic Name Dose Route Start Last Admin Trade Name Freq PRN Reason Stop Dose Admin Sodium Chloride 500 mls @ 250 mls/hr 09/13/18 02:00 09/13/18 04:34 Sodium Chloride 0.9% 500 Ml IV 10/13/18 01:59 Infused .Q2H KEIRY Infusion Discontinued Medications Generic Name Dose Route Start Last Admin Trade Name Freq PRN Reason Stop Dose Admin Sodium Chloride 500 mls @ 500 mls/hr 09/13/18 00:00 09/13/18 03:11 Sodium Chloride 0.9% 500 Ml IV 09/13/18 00:59 Infused .Q1H ONE Infusion Sodium Chloride Confirm 09/13/18 01:12 Sodium Chloride 0.9% 500 Ml Administered 09/13/18 01:13 Dose 500 mls @ ud IV .STK-MED ONE Lab/Rad Data: Laboratory Result Diagrams 09/12/18 00:45 09/12/18 00:45 Laboratory Results 09/13/18 09/13/18 09/12/18 Range/Units 01:20 00:53 00:45 WBC (4.0-10.5) K/mm3 RBC (4.1-5.4) M/mm3 Hgb (12.0-16.0) gm/dl Hct (35-47) % MCV (78-100) fl MCH (26-32) pg MCHC (32-36) g/dl RDW (11.5-14.0) % Plt Count (150-450) K/mm3 MPV (6-9.5) fl Gran % (36.0-66.0) % Eos # (Auto) (0-0.5) Absolute Lymphs (auto) (1.0-4.6) Absolute Monos (auto) (0.0-1.3) Lymphocytes % (24.0-44.0) % Monocytes % (0.0-12.0) % Eosinophils % (0.00-5.0) % Basophils % (0.0-0.4) % Absolute Granulocytes (1.4-6.9) Basophils # (0-0.4) Sodium (137-145) mmol/L Potassium (3.5-5.1) mmol/L Chloride (98-107) mmol/L Carbon Dioxide (22-30) mmol/L Anion Gap (5-15) MEQ/L BUN (7-17) mg/dL Creatinine (0.52-1.04) mg/dL Estimated GFR ML/MIN Glucose (74-106) mg/dL Lactic Acid 1.1 (0.4-2.0) Calcium (8.4-10.2) mg/dL Total Bilirubin (0.2-1.3) mg/dL AST (14-36) U/L ALT (0-35) U/L Alkaline Phosphatase (38-126) U/L Ammonia < 9 L (9-30) umol/L Serum Total Protein (6.3-8.2) g/dL Albumin (3.5-5.0) g/dL Urine Color YELLOW (YELLOW) Urine Appearance CLEAR (CLEAR) Urine pH 5.0 (5-6) Ur Specific [place] 1.013 (1.005-1.025) Urine Protein NEGATIVE (Negative) Urine Ketones NEGATIVE (NEGATIVE) Urine Blood NEGATIVE (0-5) Jamil/ul Urine Nitrite NEGATIVE (NEGATIVE) Urine Bilirubin NEGATIVE (NEGATIVE) Urine Urobilinogen NEGATIVE (0-1) mg/dL Ur Leukocyte Esterase TRACE (NEGATIVE) Urine WBC (Auto) 3-5 (0-5) /HPF Urine RBC (Auto) NONE (0-2) /HPF U Epithel Cells (Auto) RARE (FEW) /HPF Urine Bacteria (Auto) NONE (NEGATIVE) /HPF Urine Culture Reflexed NO (NO) Urine Glucose NEGATIVE (NEGATIVE) mg/dL 09/12/18 09/12/18 Range/Units 00:45 00:45 WBC 7.3 (4.0-10.5) K/mm3 RBC 5.01 (4.1-5.4) M/mm3 Hgb 15.9 (12.0-16.0) gm/dl Hct 48.9 H (35-47) % MCV 97.6 (78-100) fl MCH 31.7 (26-32) pg MCHC 32.5 (32-36) g/dl RDW 13.4 (11.5-14.0) % Plt Count 281 (150-450) K/mm3 MPV 11.2 H (6-9.5) fl Gran % 57.9 (36.0-66.0) % Eos # (Auto) 0.05 (0-0.5) Absolute Lymphs (auto) 2.15 (1.0-4.6) Absolute Monos (auto) 0.84 (0.0-1.3) Lymphocytes % 29.4 (24.0-44.0) % Monocytes % 11.5 (0.0-12.0) % Eosinophils % 0.7 (0.00-5.0) % Basophils % 0.5 (0.0-0.4) % Absolute Granulocytes 4.23 (1.4-6.9) Basophils # 0.04 (0-0.4) Sodium 139 (137-145) mmol/L Potassium 4.3 (3.5-5.1) mmol/L Chloride 105 (98-107) mmol/L Carbon Dioxide 23 (22-30) mmol/L Anion Gap 15.5 H (5-15) MEQ/L BUN 24 H (7-17) mg/dL Creatinine 0.69 (0.52-1.04) mg/dL Estimated GFR > 60.0 ML/MIN Glucose 182 H (74-106) mg/dL Lactic Acid (0.4-2.0) Calcium 9.9 (8.4-10.2) mg/dL Total Bilirubin 0.50 (0.2-1.3) mg/dL AST 20 (14-36) U/L ALT 28 (0-35) U/L Alkaline Phosphatase 67 (38-126) U/L Ammonia (9-30) umol/L Serum Total Protein 6.8 (6.3-8.2) g/dL Albumin 4.1 (3.5-5.0) g/dL Urine Color (YELLOW) Urine Appearance (CLEAR) Urine pH (5-6) Ur Specific [place] (1.005-1.025) Urine Protein (Negative) Urine Ketones (NEGATIVE) Urine Blood (0-5) Jamil/ul Urine Nitrite (NEGATIVE) Urine Bilirubin (NEGATIVE) Urine Urobilinogen (0-1) mg/dL Ur Leukocyte Esterase (NEGATIVE) Urine WBC (Auto) (0-5) /HPF Urine RBC (Auto) (0-2) /HPF U Epithel Cells (Auto) (FEW) /HPF Urine Bacteria (Auto) (NEGATIVE) /HPF Urine Culture Reflexed (NO) Urine Glucose (NEGATIVE) mg/dL - Progress Progress: unchanged Counseled pt/family regarding: lab results, diagnosis, rad results <GERARDO BOONE - Last Filed: 09/13/18 06:49> - Progress Discussed with Dr.: Bustillo (DISCUSSED WITH IWONA AT 1400 FOR OBSERVATION) <TRES LOPEZ - Last Filed: 09/13/18 14:11> - Progress Progress Note: 09/13/18 03:06 ct head-moderate ventriculomegaly out of proportion to the mild global cerebral volume loss. 09/13/18 04:15 spoke with pts daughter. workup shows no acute emergent findings. however, pt is a potential harm to herself if left on her own. will keep pt here and work with child care supervisor this am for placement. 09/13/18 04:30 pt awake and still confused 09/13/18 06:49 pt is medically stable and does not need re admission. pt has dementia and is confused. she, in my opinion, does not need mental health but half-way placement with a memory unit. she has just completed a 9 day hospital stay. will have eliezer pichardo, from discharge planning work on placement with pt and daughters. i am transferring care to dr. lopez who will give final disposition and paperwor upon discharge. (GERARDO BOONE) 09/13/18 14:[address] BUSTILLO, AT 1400 UNABLE TO FINE PLACEMENT FOR PATIENT, CALLED [facility] WHO STATES PATIENT NEEDS INTERMEDIATE PLACEMENT INSTEAD OF SHORT TERM CARE (TRES LOPEZ) - Departure Critical Care Time: No <GERARDO BOONE - Last Filed: 09/13/18 06:49> - Departure Departure Disposition: Observation <TRES LOPEZ - Last Filed: 09/13/18 14:11> - Departure Clinical Impression: Confusion, Dementia Condition: Stable Referrals: DOCTOR,NO FAMILY [Primary Care Provider] -
[2018-09-13 01:03] LABS: BASOPHIL % 0.5 % (0.0-0.4); Basophil (Absolute #) 0.04 (0-0.4); Eosinophil % 0.7 % (0.00-5.0); Eosinophil (Absolute #) 0.05 (0-0.5); Granulocyte Absolute (ANC) 4.23 (1.4-6.9); Granulocytes % 57.9 % (36.0-66.0); Hematocrit 48.9 % (35-47); Hemoglobin 15.9 gm/dl (12.0-16.0); Lymphocyte (Absolute #) 2.15 (1.0-4.6); Lymphocytes % 29.4 % (24.0-44.0); Mean Cell Volume 97.6 fl (78-100); Mean Corpuscular Hemoglobin 31.7 pg (26-32); Mean Corpuscular Hgb Concent. 32.5 g/dl (32-36); Mean Platelet Volume 11.2 fl (6-9.5); Monocyte (Absolute #) 0.84 (0.0-1.3); Monocytes % 11.5 % (0.0-12.0); Platelet Count 281 K/mm3 (150-450); Red Blood Count 5.01 M/mm3 (4.1-5.4); Red Cell Distribution Width 13.4 % (11.5-14.0); White Blood Count 7.3 K/mm3 (4.0-10.5)
[2018-09-13] MEDS ORDERED: Sodium Chloride 0.9% 500 ML 500 ML IV ONE ×2 (01:12)
[2018-09-13 01:16] LABS: ALBUMIN 4.1 g/dL (3.5-5.0); ALKALINE PHOSPHATASE 67 U/L (38-126); ANION GAP 15.5 MEQ/L (5-15); BLOOD UREA NITROGEN 24 mg/dL (7-17); CHLORIDE 105 mmol/L (98-107); Calcium 9.9 mg/dL (8.4-10.2); Carbon Dioxide 23 mmol/L (22-30); Creatinine 1 0.69 mg/dL (0.52-1.04); Glucose 182 mg/dL (74-106); Potassium 4.3 mmol/L (3.5-5.1); SGOT/AST 20 U/L (14-36); SGPT/ALT 28 U/L (0-35); SODIUM 139 mmol/L (137-145); Total Protein 6.8 g/dL (6.3-8.2)
[2018-09-13 01:18] LABS: Appearance CLEAR (CLEAR); Bilirubin NEGATIVE (NEGATIVE); Blood NEGATIVE Ery/ul (0-5); Epithelial Cells RARE /HPF (FEW); Glucose NEGATIVE (NEGATIVE); Ketones NEGATIVE (NEGATIVE); Leukocyte Esterase TRACE (NEGATIVE); Nitrite NEGATIVE (NEGATIVE); Protein,Urine Dip NEGATIVE (Negative); Specific Gravity 1.013 (1.005-1.025); Urobilinogen NEGATIVE mg/dL (0-1)
[2018-09-13] MEDS ORDERED: Sodium Chloride 0.9% 500 ML 500 ML IV SCH (02:00)
--- NOTE | 2018-09-13 09:25 | XRAY ---
Indication: Confusion. Multiple contiguous axial images obtained through the head without contrast. Comparison: September 02, 2018. Stable age-appropriate global atrophy and mild periventricular degenerative micro-ischemia bilaterally. No acute intracranial hemorrhage, abnormal extra-axial fluid collection, or mass effect. Ventricle system again remains prominent. Bony calvarium intact. Visualized paranasal sinuses and mastoid air cells are clear. Impression: Stable nonacute senile brain with ventriculomegaly. Comment: Preliminary interpretation was made by [facility]. No critical discrepancy. CT DI 70.69
[2018-09-13] MEDS ORDERED: Sodium Chloride 0.9% 1000 ML 1,000 ML IV SCH (14:15)
[2018-09-13] MEDS: xanAX 0.5 MG PO SCH (17:01)
[2018-09-13] MEDS: MIDAMOR PO SCH (17:02)
[2018-09-13] MEDS: NovoLOG Insulin SQ SCH (17:06)
[2018-09-13] MEDS: Aricept 10 MG PO SCH (21:55)
[2018-09-13] MEDS: NYSTOP 30 GM CREAM TOP SCH (21:56)
[2018-09-13] MEDS: TENORMIN 50 MG PO SCH (21:57)
[2018-09-13] MEDS: ZOCOR 20MG PO SCH (22:00)
[2018-09-14] MEDS: NovoLOG Insulin SQ SCH ×3 (08:36→17:49)
[2018-09-14] MEDS ORDERED: MIDAMOR PO SCH (10:00)
[2018-09-14] MEDS ORDERED: Klor Con 10 MEQ PO SCH (10:00)
[2018-09-14] MEDS: Zestril 10 MG PO SCH (10:41)
[2018-09-14] MEDS: Klor Con 10 MEQ PO SCH (10:41)
[2018-09-14] MEDS: SYNTHROID 150 MCG PO SCH (10:41)
[2018-09-14] MEDS: TENORMIN 50 MG PO SCH ×2 (10:41→21:21)
[2018-09-14] MEDS: xanAX 0.5 MG PO SCH (10:41)
[2018-09-14] MEDS: ENOXAPARIN SODIUM SQ SCH (10:42)
[2018-09-14] MEDS: Lantus Insulin SQ SCH (10:42)
[2018-09-14] MEDS: NYSTOP 30 GM CREAM TOP SCH ×2 (10:42→21:22)
[2018-09-14] MEDS: MIDAMOR PO SCH ×2 (10:46→17:48)
[2018-09-14] MEDS: Aricept 10 MG PO SCH (21:21)
[2018-09-14] MEDS: ZOCOR 20MG PO SCH (21:21)
[2018-09-15] MEDS: NovoLOG Insulin SQ SCH ×3 (08:41→17:13)
[2018-09-15] MEDS: xanAX 0.5 MG PO SCH (10:06)
[2018-09-15] MEDS: Zestril 10 MG PO SCH (10:06)
[2018-09-15] MEDS: SYNTHROID 150 MCG PO SCH (10:06)
[2018-09-15] MEDS: Klor Con 10 MEQ PO SCH (10:06)
[2018-09-15] MEDS: TENORMIN 50 MG PO SCH ×2 (10:06→20:59)
[2018-09-15] MEDS: NYSTOP 30 GM CREAM TOP SCH ×2 (10:07→21:04)
[2018-09-15] MEDS: ENOXAPARIN SODIUM SQ SCH (10:08)
[2018-09-15] MEDS: MIDAMOR PO SCH ×2 (10:08→17:13)
[2018-09-15] MEDS: Lantus Insulin SQ SCH (10:22)
[2018-09-15] MEDS: ZOCOR 20MG PO SCH (20:59)
[2018-09-15] MEDS: Aricept 10 MG PO SCH (21:00)
[2018-09-16 05:55] LABS: BASOPHIL % 0.8 % (0.0-0.4); Basophil (Absolute #) 0.04 (0-0.4); Eosinophil % 1.2 % (0.00-5.0); Eosinophil (Absolute #) 0.06 (0-0.5); Granulocyte Absolute (ANC) 2.42 (1.4-6.9); Granulocytes % 46.8 % (36.0-66.0); Hematocrit 42.7 % (35-47); Hemoglobin 13.7 gm/dl (12.0-16.0); Lymphocyte (Absolute #) 1.96 (1.0-4.6); Mean Cell Volume 98.2 fl (78-100); Mean Corpuscular Hemoglobin 31.5 pg (26-32); Mean Corpuscular Hgb Concent. 32.1 g/dl (32-36); Monocyte (Absolute #) 0.68 (0.0-1.3); Monocytes % 13.2 % (0.0-12.0); Platelet Count 242 K/mm3 (150-450); Red Blood Count 4.35 M/mm3 (4.1-5.4); Red Cell Distribution Width 13.1 % (11.5-14.0); White Blood Count 5.2 K/mm3 (4.0-10.5)
[2018-09-16 06:29] LABS: ALBUMIN 3.2 g/dL (3.5-5.0); ALKALINE PHOSPHATASE 56 U/L (38-126); ANION GAP 8.4 MEQ/L (5-15); BLOOD UREA NITROGEN 15 mg/dL (7-17); CHLORIDE 105 mmol/L (98-107); Calcium 8.5 mg/dL (8.4-10.2); Carbon Dioxide 28 mmol/L (22-30); Creatinine 1 0.62 mg/dL (0.52-1.04); Glucose 249 mg/dL (74-106); Potassium 3.6 mmol/L (3.5-5.1); SGOT/AST 15 U/L (14-36); SGPT/ALT 21 U/L (0-35); SODIUM 138 mmol/L (137-145); Total Protein 5.7 g/dL (6.3-8.2)
--- NOTE | 2018-09-16 07:48 | HP ---
HISTORY OF PRESENT ILLNESS: This is a 78 year-old patient without a physician in the local area who I discharged from the hospital yesterday after being for hospitalized for hypokalemia and memory problems. Her hypokalemia resolved during that hospitalization. I had worked with the systems requirements planner to try to find placement for her so she could be evaluated by a psychiatrist as our [facility] consult did not provide face to face psychiatric evaluations with a psychiatrist for the patient. I was told that her insurance would not cover for her to go to a emir-psychiatric facility. We contacted Adult Protective Services so they knew that she would be going home to an apartment. She had family that was going to be taking her there and had family that was living in the same apartment complex. The emergency room note reports that she was brought back by family to the emergency department later that evening after being confused and found in the bathroom of someone else's apartment. The emergency room doctor reported that they tried to find placement for her while she was in the ER where she could see a psychiatrist face to face but were not successful. She does not have any family or friends that can stay with her 24 hours a day 7 days a week. Discharge planning reports that her daughters are working with a public health for legal documents for guardianship. She needed to be placed here for her safety as she was more confused on this admission currently than she had been when I discharged her. When I discharged her, her daughters had told the systems requirements planner that she would not have access to her keys to drive her car. On her last admission we tried to have her placed in a emir-psychiatric facility multiple places without any success and also had home health in place. [facility] saw her two different times during that admission. They reported they were unable to do the formal evaluation for competence. On her last hospitalization she had a neurology consult, they suggested MRI of her brain which patient had refused. She had a normal vitamin B12, folic acid and RPR screen for Syphilis and all of those were normal. She had a mildly elevated TSH and I adjusted her Synthroid while she was here. She had a head CT that was read as stable nonacute senile brain with ventriculomegaly. REVIEW OF SYSTEMS: The patient denies any pain. Other review of systems is unobtainable due to confusion. PAST MEDICAL HISTORY: Diabetes mellitus type 2, hypertension, hypothyroidism, hypokalemia, dementia newly diagnosed. PAST SURGICAL HISTORY: Taken from her previous admission: Appendectomy, hysterectomy, pilonidal cyst removed, thyroid removed. MEDICATIONS: Please see the MAR which I reviewed. ALLERGIES: CODEINE, METHADONE, PENICILLIN, PROPOXYPHENE SOCIAL HISTORY: She is a . Her she reportedly recently this year and she lives alone currently. FAMILY HISTORY: Unobtainable. PHYSICAL EXAMINATION: VITAL SIGNS: Temperature current 98.6F, temperature max 98.6F, heart rate 52 to 92, respiratory rate 16 to 20, blood pressure 122 to 164 over 51 to 97. Oxygen saturation 94 to 97% on room air. GENERAL: The patient is sitting up in bed. She is one on one with a nurse as a sitter right now. She is fidgety. She is also tangential in her speech. She is oriented to person, says she is at a hospital and that she is in [place]. She said the year is 1970. She cannot tell me who the President of [employer] is. CVS: She has a regular rate and rhythm. No murmurs, gallops or rubs are appreciated. CHEST: Clear to auscultation bilaterally. No crackles or wheezes. ABDOMEN: Soft, nontender, nondistended with normal bowel sounds. EXTREMITIES: No clubbing, cyanosis or edema. She has an IV in her left forearm. SKIN: Warm, dry and intact. : Saldana catheter in place. LABORATORY DATA AND TESTS: CBC within normal limits. CMP with glucose 182. Liver function tests are normal. Lactic acid normal. UA negative. ASSESSMENT AND PLAN: 1) DEMENTIA: With change of location she seems to have become even more confused. She was not wandering or fidgety when she was discharged from the hospital and was oriented at that time. She will need to be discharged where she can watched 24 hours a day 7 days a week. Again, the family is working on legal proceedings to be able to take care of their mother. The neurologist had recommended considering Aricept so they can start that this morning. She most likely will not lay still enough for a MRI at this point in. 2) DIABETES MELLITUS TYPE 2: Will continue her on the dosage of insulin that we had her on before. 3) HYPOTHYROIDISM: Will continue with levothyroxine. 4) HYPOKALEMIA: Currently stable on her current medication. 5) HYPERTENSION: Currently well controlled. 6) POOR SOCIAL SITUATION: Again, she does not have a safe disposition at this time as she became even more confused with the change in living arrangements when she went home from her nine day hospital stay back to her apartment. 7) VENTRICULOMEGALY: She may need to see a neurologist as an outpatient for follow up.
[2018-09-16] MEDS: NovoLOG Insulin SQ SCH ×4 (08:20→16:51)
--- NOTE | 2018-09-16 08:54 | PCM.NOTE ---
Date and Time: 09/16/18 0854 Subjective Assessment: Patient states her stomach has been upset on and off. She denies any pain at this time. She reports that she does not want any breakfast and that insulin sometimes makes her stomach pain worse. wedding planner, Aden Murdock, reports she has contacted [facility] to come see the patient here and that her family is working on Guardianship for her with a civil lawyer. Her nurse reports she refused her short acting insulin this AM. - Review of Systems Constitutional: No Symptoms Respiratory: No Symptoms Cardiac: No Symptoms Abdominal/Gastrointestinal: Other (upset stomach) Genitourinary Symptoms: No Symptoms Objective Exam General Appearance: no apparent distress, alert, obese Neurologic Exam: alert, other (oriented to place and name but cannot tell me year or who the president of the is.) Skin Exam: normal color, warm, dry, No rash Respiratory Exam: normal breath sounds, lungs clear, No crackles/rales, No rhonchi, No wheezing Cardiovascular Exam: regular rate/rhythm, normal heart sounds, No murmur, No friction rub, No gallop Gastrointestinal/Abdomen Exam: soft, normal bowel sounds, No tenderness, No distention, No mass Extremity Exam: other (no c/c/e) OBJECTIVE DATA Vital Signs: Vital Signs - 24 hr Temp Pulse Resp BP BP Pulse Ox 09/16/18 08:00 97.5 F 66 20 152/67 96 09/16/18 03:57 98.1 F 67 17 192/71 96 09/15/18 23:53 18 09/15/18 20:59 77 186/73 09/15/18 19:47 97.9 F 77 17 186/73 98 09/15/18 15:43 98.1 F 80 18 138/84 95 09/15/18 11:10 98.2 F 59 L 18 144/63 96 09/15/18 10:06 71 175/64 Pain Assessment - Last Documented Pain Intensity 0 Pain Scale Used [facility] Intake and Output: Intake & Output 09/14/18 09/15/18 09/16/18 09/17/18 06:59 06:59 06:59 06:59 Intake Total 100 1700 1690 Output Total 1 Balance 100 1700 1689 Weight 77 kg Lab Results: Accuchecks Date 09/15/18 Date 09/15/18 Date 09/15/18 Time 22:00 Time 16:30 Time 11:30 Accucheck Value: 217 Accucheck Value: 231 Accucheck Value: 232 Lab Results-Last 24 Hours 09/16/18 09/16/18 Range/Units 05:30 05:30 WBC 5.2 (4.0-10.5) K/mm3 RBC 4.35 (4.1-5.4) M/mm3 Hgb 13.7 (12.0-16.0) gm/dl Hct 42.7 (35-47) % MCV 98.2 (78-100) fl MCH 31.5 (26-32) pg MCHC 32.1 (32-36) g/dl RDW 13.1 (11.5-14.0) % Plt Count 242 (150-450) K/mm3 MPV 11.0 H (6-9.5) fl Gran % 46.8 (36.0-66.0) % Eos # (Auto) 0.06 (0-0.5) Absolute Lymphs (auto) 1.96 (1.0-4.6) Absolute Monos (auto) 0.68 (0.0-1.3) Lymphocytes % 38.0 (24.0-44.0) % Monocytes % 13.2 H (0.0-12.0) % Eosinophils % 1.2 (0.00-5.0) % Basophils % 0.8 (0.0-0.4) % Absolute Granulocytes 2.42 (1.4-6.9) Basophils # 0.04 (0-0.4) Sodium 138 (137-145) mmol/L Potassium 3.6 (3.5-5.1) mmol/L Chloride 105 (98-107) mmol/L Carbon Dioxide 28 (22-30) mmol/L Anion Gap 8.4 (5-15) MEQ/L BUN 15 (7-17) mg/dL Creatinine 0.62 (0.52-1.04) mg/dL Estimated GFR > 60.0 ML/MIN Glucose 249 H (74-106) mg/dL Calcium 8.5 (8.4-10.2) mg/dL Total Bilirubin 0.50 (0.2-1.3) mg/dL AST 15 (14-36) U/L ALT 21 (0-35) U/L Alkaline Phosphatase 56 (38-126) U/L Serum Total Protein 5.7 L (6.3-8.2) g/dL Albumin 3.2 L (3.5-5.0) g/dL Assessment/Plan (1) Dementia Current Visit: Yes Status: Acute Assessment & Plan: Started aricept; patient refused MRI of brain at her last visit. Will need 24 hour monitoring/care when discharged as she was found wandering after last discharge. At this time I do not have a safe place to discharge her to. Code(s): F03.90 - UNSPECIFIED DEMENTIA WITHOUT BEHAVIORAL DISTURBANCE (2) Hypertension Current Visit: Yes Status: Acute Assessment & Plan: Patient encouraged to take her medications. Code(s): I10 - ESSENTIAL (PRIMARY) HYPERTENSION (3) Hypokalemia Current Visit: No Status: Acute Assessment & Plan: Stable on current medications. Code(s): E87.6 - HYPOKALEMIA (4) Type 2 diabetes mellitus with hyperglycemia Current Visit: No Status: Acute Qualifiers: Diabetes mellitus half-way insulin use: with terminal clerk use Qualified Code( s): E11.65 - Type 2 diabetes mellitus with hyperglycemia; Z79.4 - alf ( current) use of insulin Code(s): E11.65 - TYPE 2 DIABETES MELLITUS WITH HYPERGLYCEMIA (5) Hypothyroidism Current Visit: No Status: Acute Assessment & Plan: I adjusted her levothyroxine during her last hospitalization. Code(s): E03.9 - HYPOTHYROIDISM, UNSPECIFIED (6) Poor social situation Current Visit: Yes Status: Acute Assessment & Plan: wedding planner has tried to find placement for her without success at this time. APS is involved. Code(s): Z65.9 - PROBLEM RELATED TO UNSPECIFIED PSYCHOSOCIAL CIRCUMSTANCES
[2018-09-16] MEDS: TENORMIN 50 MG PO SCH ×3 (11:08→21:16)
[2018-09-16] MEDS: Zestril 10 MG PO SCH (11:08)
[2018-09-16] MEDS: SYNTHROID 150 MCG PO SCH (11:08)
[2018-09-16] MEDS: MIDAMOR PO SCH ×2 (11:09→16:52)
[2018-09-16] MEDS: Lantus Insulin SQ SCH (11:10)
[2018-09-16] MEDS: NYSTOP 30 GM CREAM TOP SCH ×2 (11:10→21:13)
[2018-09-16] MEDS: ENOXAPARIN SODIUM SQ SCH (11:12)
[2018-09-16] MEDS: Klor Con 10 MEQ PO SCH (11:12)
[2018-09-16] MEDS: xanAX 0.5 MG PO SCH (11:12)
[2018-09-16] MEDS ORDERED: HALDOL 1 MG ONE (20:32)
[2018-09-16] MEDS: Aricept 10 MG PO SCH ×2 (20:42→21:16)
[2018-09-16] MEDS: HALDOL 1 MG PO ONE ×2 (20:43→21:15)
[2018-09-16] MEDS: ZOCOR 20MG PO SCH ×2 (20:43→21:16)
[2018-09-16] MEDS ORDERED: Haldol 5 MG IM ONE (21:30)
--- NOTE | 2018-09-17 09:06 | PCM.NOTE ---
Date and Time: 09/17/18 0900 Subjective Assessment: Her night nurse called me and stated she was wandering into multiple patient's rooms; unable to redirect; refusing medications; becoming increasingly agitated. They thought she would take an oral medication so oral haldol 1 mg po ordered x 1 but then they called back and said now refusing this so haldol 1 mg IM ordered x 1. I did not hear back from the nurse. Nurses notes this AM reviewed and said they were able to take her for a walk and she calmed down and went to sleep and she was not given haldol which is great news! Patient reports she didn't feel like eating and didn't want to take her medications on an empty stomach. Patient states she can just hardly stand the wind today. She denies abdominal pain or constipation. - Review of Systems All Other Systems: Unable due to dementia (Unable to obtain besides what is in subjective due to dementia) Objective Exam General Appearance: no apparent distress, alert, obese Neurologic Exam: alert, cooperative, other (tangential thoughts; what she says often does not make sense for the situation.) Skin Exam: normal color, warm, dry, No rash Respiratory Exam: normal breath sounds, lungs clear, No crackles/rales, No rhonchi, No wheezing Cardiovascular Exam: regular rate/rhythm, normal heart sounds, No murmur, No friction rub, No gallop Gastrointestinal/Abdomen Exam: soft, normal bowel sounds, No tenderness, No distention, No mass Extremity Exam: normal inspection, other (no c/c/e) OBJECTIVE DATA Vital Signs: Vital Signs - 24 hr Temp Pulse Resp BP BP Pulse Ox 09/17/18 07:11 98.1 F 76 18 110/64 98 09/17/18 04:00 97.7 F 09/17/18 00:00 98.2 F 75 20 120/57 95 09/16/18 20:00 98.2 F 79 20 154/94 97 09/16/18 16:00 98.3 F 83 18 189/86 95 09/16/18 11:25 98.1 F 80 18 184/99 97 09/16/18 11:08 72 176/74 Pain Assessment - Last Documented Pain Intensity 0 Pain Scale Used [facility] Intake and Output: Intake & Output 09/15/18 09/16/18 09/17/18 09/18/18 06:59 06:59 06:59 06:59 Intake Total 1700 1690 1700 0 Output Total 1 Balance 1700 1689 1700 0 Lab Results: Accuchecks Date 09/16/18 Date 09/16/18 Time 16:30 Time 11:30 Accucheck Value: 134 Accucheck Value: 318 Accucheck Value: 299 Assessment/Plan (1) Dementia Current Visit: Yes Status: Acute Assessment & Plan: Continue aricept at night. Awaiting family to obtain guardianship and she will need [address]. APS involved. Code(s): F03.90 - UNSPECIFIED DEMENTIA WITHOUT BEHAVIORAL DISTURBANCE (2) Hypertension Current Visit: Yes Status: Acute Assessment & Plan: Currently well controlled. Code(s): I10 - ESSENTIAL (PRIMARY) HYPERTENSION (3) Hypokalemia Current Visit: No Status: Resolved Assessment & Plan: Continue amiloride and potassium Code(s): E87.6 - HYPOKALEMIA (4) Type 2 diabetes mellitus with hyperglycemia Current Visit: No Status: Acute Qualifiers: Diabetes mellitus residential insulin use: with terminal carman use Qualified Code( s): E11.65 - Type 2 diabetes mellitus with hyperglycemia; Z79.4 - bed bug exterminator ( current) use of insulin Assessment & Plan: Better controlled when she does not refuse to take her insulin. Code(s): E11.65 - TYPE 2 DIABETES MELLITUS WITH HYPERGLYCEMIA (5) Hypothyroidism Current Visit: No Status: Acute Assessment & Plan: Continue levothyroxine. Code(s): E03.9 - HYPOTHYROIDISM, UNSPECIFIED (6) Poor social situation Current Visit: Yes Status: Acute Code(s): Z65.9 - PROBLEM RELATED TO UNSPECIFIED PSYCHOSOCIAL CIRCUMSTANCES
[2018-09-17] MEDS: NovoLOG Insulin SQ SCH ×3 (10:03→16:30)
[2018-09-17] MEDS: MIDAMOR PO SCH ×2 (11:02→16:57)
[2018-09-17] MEDS: TENORMIN 50 MG PO SCH ×2 (11:02→22:05)
[2018-09-17] MEDS: Klor Con 10 MEQ PO SCH (11:02)
[2018-09-17] MEDS: xanAX 0.5 MG PO SCH ×2 (11:02→22:06)
[2018-09-17] MEDS: SYNTHROID 150 MCG PO SCH (11:02)
[2018-09-17] MEDS: Zestril 10 MG PO SCH (11:02)
[2018-09-17] MEDS: ENOXAPARIN SODIUM SQ SCH (11:03)
[2018-09-17] MEDS: NYSTOP 30 GM CREAM TOP SCH ×2 (11:03→22:05)
[2018-09-17] MEDS: Lantus Insulin SQ SCH (11:10)
[2018-09-17] MEDS: Aricept 10 MG PO SCH (22:04)
[2018-09-17] MEDS: ZOCOR 20MG PO SCH (22:05)
[2018-09-18] MEDS: NovoLOG Insulin SQ SCH ×3 (07:24→17:01)
[2018-09-18] MEDS: ENOXAPARIN SODIUM SQ SCH (07:26)
[2018-09-18] MEDS: Lantus Insulin SQ SCH (07:26)
[2018-09-18] MEDS: Klor Con 10 MEQ PO SCH (07:26)
[2018-09-18] MEDS: TENORMIN 50 MG PO SCH ×2 (07:26→21:54)
[2018-09-18] MEDS: Zestril 10 MG PO SCH (07:27)
[2018-09-18] MEDS: SYNTHROID 150 MCG PO SCH (07:27)
[2018-09-18] MEDS: NYSTOP 30 GM CREAM TOP SCH ×2 (07:28→21:54)
[2018-09-18] MEDS: xanAX 0.5 MG PO SCH ×2 (07:28→19:38)
[2018-09-18] MEDS: MIDAMOR PO SCH ×2 (07:29→17:01)
--- NOTE | 2018-09-18 08:42 | PCM.NOTE ---
Date and Time: 09/18/18 0836 Subjective Assessment: Patient reports she's ready "to get the hell out of here". She states she wants to get to [place]. When I explained that the last time she was discharged she was found in a neighbor's apartment. She said "They have some ideas that aren't correct." and she stated "the christina are dark and it's hard to see where you are going". She talks about watching her grandson Prabhakar. Aden Murdock, emergency planner, states she talked with Yolande with APS in [facility] and APS plans to hire a speech pathologist assistant to obtain emergency guardianship for Ms. Ferguson. I discussed with patient that we were going to try to have more activities for her to do and she said she knows how to "walk a dog or cat and dig in the dirt". - Review of Systems All Other Systems: Unable due to dementia Objective Exam General Appearance: no apparent distress, alert, other (Rest of exam deferred due to patient's agitation.) Neurologic Exam: alert, other (agitated; taking large bites of Croatian toast (1/ 4 of a piece at a time)), No cooperative OBJECTIVE DATA Vital Signs: Vital Signs - 24 hr Temp Pulse Resp BP BP Pulse Ox 09/18/18 07:37 98.2 F 70 18 180/91 94 L 09/18/18 07:26 70 180/91 09/18/18 04:00 97.5 F 65 17 168/67 94 L 09/17/18 22:05 90 139/80 09/17/18 20:00 97.9 F 90 20 139/80 97 09/17/18 16:00 98.5 F 72 18 186/78 96 09/17/18 11:20 98.2 F 79 18 152/67 97 Pain Assessment - Last Documented Pain Intensity 0 Pain Scale Used 0-10 Pain Scale Intake and Output: Intake & Output 09/16/18 09/17/18 09/18/18 09/19/18 06:59 06:59 06:59 06:59 Intake Total 1690 1700 1160 Output Total 1 Balance 1689 1700 1160 Lab Results: Accuchecks Date 09/18/18 Time 07:30 Accucheck Value: 121 Accucheck Value: 253 Accucheck Value: 174 Accucheck Value: 187 Assessment/Plan (1) Dementia Current Visit: Yes Status: Acute Assessment & Plan: Continue aricept. Discharge planning has contacted APS as she does not have any family that is wanting to pursue guardianship per the verbal report we received from [employer] which the family had been talking with. APS has stated they plan to hire a speech pathologist assistant for emergency guardianship. Code(s): F03.90 - UNSPECIFIED DEMENTIA WITHOUT BEHAVIORAL DISTURBANCE (2) Hypertension Current Visit: Yes Status: Acute Assessment & Plan: Continue atenolol; stop lisinopril and start losartan 50 mg po qam. Code(s): I10 - ESSENTIAL (PRIMARY) HYPERTENSION (3) Type 2 diabetes mellitus with hyperglycemia Current Visit: No Status: Acute Qualifiers: Diabetes mellitus forging press lever tender insulin use: with mcfp use Qualified Code( s): E11.65 - Type 2 diabetes mellitus with hyperglycemia; Z79.4 - packaging sales consultant ( current) use of insulin Assessment & Plan: Continue insulin. Code(s): E11.65 - TYPE 2 DIABETES MELLITUS WITH HYPERGLYCEMIA (4) Hypothyroidism Current Visit: No Status: Acute Assessment & Plan: Continue levothyroxine. Code(s): E03.9 - HYPOTHYROIDISM, UNSPECIFIED (5) Poor social situation Current Visit: Yes Status: Acute Assessment & Plan: Due to her memory impairment/dementia she is unable to care for herself at home and should have 24 hour care. Code(s): Z65.9 - PROBLEM RELATED TO UNSPECIFIED PSYCHOSOCIAL CIRCUMSTANCES
[2018-09-18] MEDS: Cozaar 50 MG PO SCH (11:06)
[2018-09-18] MEDS: Aricept 10 MG PO SCH (21:53)
[2018-09-18] MEDS: ZOCOR 20MG PO SCH (21:53)
[2018-09-19] MEDS: NovoLOG Insulin SQ SCH ×3 (08:11→17:16)
--- NOTE | 2018-09-19 10:36 | PCM.NOTE ---
Date and Time: 09/19/18 1030 Subjective Assessment: Patient reports she is just as upset as she was yesterday and is not happy with her breakfast; offered to try to get her something else but she states nothing is good here and maybe they need to hire a new cook. She denies any pain. She reports she wants to go home and that she talked to her granddaughter a few days ago and she is coming from [place]. - Review of Systems Constitutional: No Symptoms Respiratory: No Symptoms Cardiac: No Symptoms Abdominal/Gastrointestinal: No Symptoms Genitourinary Symptoms: No Symptoms Musculoskeletal: No Symptoms Objective Exam General Appearance: alert, anxiety, other (moves her sheet around in her lap over and over. Sitting up, normal speech, in no acute distress) Neurologic Exam: other (oriented to person and place (hospital and [place]); looks at board in room when asked year and says 2019. She cannot tell me the name of the microarray operations vice president.) Skin Exam: normal color, warm, dry Respiratory Exam: normal breath sounds, lungs clear, No crackles/rales, No rhonchi, No wheezing Cardiovascular Exam: regular rate/rhythm, normal heart sounds, No murmur, No friction rub, No gallop Gastrointestinal/Abdomen Exam: soft, normal bowel sounds, No tenderness, No distention, No mass Extremity Exam: other (no c/c/e) OBJECTIVE DATA Vital Signs: Vital Signs - 24 hr Temp Pulse Resp BP BP Pulse Ox 09/19/18 08:00 98 F 71 20 170/74 95 09/19/18 04:00 98.0 F 73 20 151/67 99 09/19/18 00:00 17 09/18/18 21:54 86 126/75 09/18/18 20:00 98.1 F 86 19 136/75 97 09/18/18 15:48 98.1 F 82 18 132/70 97 09/18/18 12:00 98.1 F 81 18 136/99 97 Pain Assessment - Last Documented Pain Intensity 0 Pain Scale Used [facility] Intake and Output: Intake & Output 09/17/18 09/18/18 09/19/18 09/20/18 06:59 06:59 06:59 06:59 Intake Total 1700 1160 1440 360 Balance 1700 1160 1440 360 Lab Results: Accuchecks Date 09/19/18 Date 09/19/18 Date 09/18/18 Date 09/18/18 Time 07:30 Time 22:00 Time 16:30 Time 11:30 Accucheck Value: 122 Accucheck Value: 188 Accucheck Value: 161 Accucheck Value: 139 Multi-Disciplinary Progress Notes: Multi-Disciplinary Progress Notes 09/18/18 14:02 Case Management Note by Alba Murdock CALL TO [facility] FOR DREDGE OPERATOR PLACEMENT, SPOKE WITH [facility] - NO FEMALE BEDS AVAILABLE AT THIS TIME. REPORTS THAT THEY WILL HAVE 6 NEW BEDS IN THE NEAR FUTURE. SPOKE WITH [facility] - NO BEDS AVAILABLE. SPOKE WITH [facility] - THEY DO HAVE BEDS. EXPLAINED SITUATION. REQUESTS REFERRAL PACKET BE FAXED TO [phone]. Initialized on 09/18/18 14:02 - END OF NOTE 09/18/18 13:38 Case Management Note by Alba Murdock FROM [facility] JUST CALLED TO NOTIFY THAT THEY HAVE AN BATTALION FIRE CHIEF AND A PROFESSIONAL GUARDIAN TO ACCEPT THIS CASE. SHE IS HOPEFUL TO HAVE PROFESSIONAL GUARDIAN IN PLACE SOON, THIS WILL BE FILED EMERGENT. Initialized on 09/18/18 13:38 - END OF NOTE 09/18/18 13:00 (created 09/18/18 14:09) Case Management Note by Alba Murdock CONTACTED BY BATTALION FIRE CHIEF, BEBETO GRANADOS, TO ALERT HOSPITAL THAT PT'S DAUGHTERS HAVE STEPPED AWAY AND DO NOT PLAN TO GO FORWARD WITH OBTAINING GUARDIANSHIP OF THEIR MOTHER. DISCUSSED COURT APPOINTED GUARDIANSHIP. CALL TO BENITO AT [facility] TO REPORT ABOVE. BENITO REPORTS THAT IN [facility] IT IS DIFFICULT TO OBTAIN COURT APPOINTED GUARDIANSHIP. REPORTS THAT SHE WILL CONFER WITH BATTALION FIRE CHIEF, AND CALL BACK. Initialized on 09/18/18 14:09 - END OF NOTE Assessment/Plan (1) Dementia Current Visit: Yes Status: Acute Assessment & Plan: During her last hospitalization her RPR was neg, folate and Vit B 12 level normal; Her TSH was mildly elevated and I adjusted her thyroid medication. Will plan to recheck her TSH tomorrow. She refused a MRI during her last hospitalization. APS is working on obtained emergency guardianship and I filled out paper work for this for the physician certification. Code(s): F03.90 - UNSPECIFIED DEMENTIA WITHOUT BEHAVIORAL DISTURBANCE (2) Hypertension Current Visit: Yes Status: Acute Assessment & Plan: Will increase her losartan to 100 mg daily from 50 mg daily as blood pressure was still high this morning. Continue other antihypertensives. Code(s): I10 - ESSENTIAL (PRIMARY) HYPERTENSION (3) Type 2 diabetes mellitus with hyperglycemia Current Visit: No Status: Acute Qualifiers: Diabetes mellitus responder insulin use: with responder use Qualified Code( s): E11.65 - Type 2 diabetes mellitus with hyperglycemia; Z79.4 - gold leaf roller ( current) use of insulin Assessment & Plan: Continue current insulin doses. Code(s): E11.65 - TYPE 2 DIABETES MELLITUS WITH HYPERGLYCEMIA (4) Hypothyroidism Current Visit: No Status: Acute Assessment & Plan: Recheck TSH tomorrow to make sure improving. May note be normalized yet. Was slightly elevated at her last hospitalization earlier this month. Code(s): E03.9 - HYPOTHYROIDISM, UNSPECIFIED (5) Poor social situation Current Visit: Yes Status: Acute Code(s): Z65.9 - PROBLEM RELATED TO UNSPECIFIED PSYCHOSOCIAL CIRCUMSTANCES
[2018-09-19] MEDS: SYNTHROID 150 MCG PO SCH (10:39)
[2018-09-19] MEDS: Klor Con 10 MEQ PO SCH (10:39)
[2018-09-19] MEDS: TENORMIN 50 MG PO SCH ×2 (10:40→21:35)
[2018-09-19] MEDS: xanAX 0.5 MG PO SCH ×2 (10:40→21:35)
[2018-09-19] MEDS: MIDAMOR PO SCH ×2 (10:40→17:15)
[2018-09-19] MEDS: Cozaar 50 MG PO SCH ×2 (11:22→14:08)
[2018-09-19] MEDS: Lantus Insulin SQ SCH (11:54)
[2018-09-19] MEDS: NYSTOP 30 GM CREAM TOP SCH ×2 (12:37→21:36)
[2018-09-19] MEDS: Aricept 10 MG PO SCH (21:34)
[2018-09-19] MEDS: ZOCOR 20MG PO SCH (21:34)
[2018-09-20 06:24] LABS: ANION GAP 9.9 MEQ/L (5-15); BLOOD UREA NITROGEN 16 mg/dL (7-17); CHLORIDE 105 mmol/L (98-107); Calcium 8.8 mg/dL (8.4-10.2); Carbon Dioxide 30 mmol/L (22-30); Creatinine 1 0.66 mg/dL (0.52-1.04); Glucose 158 mg/dL (74-106); Potassium 3.5 mmol/L (3.5-5.1); SODIUM 141 mmol/L (137-145)
[2018-09-20] MEDS: NovoLOG Insulin SQ SCH ×3 (08:11→16:48)
--- NOTE | 2018-09-20 08:34 | PCM.NOTE ---
Date and Time: 09/20/18826 Subjective Assessment: Patient denies pain or any concerns except wanting the heat turned up in her room. - Review of Systems Constitutional: No Symptoms Respiratory: No Symptoms Cardiac: No Symptoms Abdominal/Gastrointestinal: No Symptoms Musculoskeletal: No Symptoms Skin: No Symptoms Objective Exam General Appearance: no apparent distress Neurologic Exam: alert, cooperative Skin Exam: normal color, warm, dry Respiratory Exam: normal breath sounds, lungs clear Cardiovascular Exam: regular rate/rhythm, normal heart sounds Gastrointestinal/Abdomen Exam: soft, normal bowel sounds, No tenderness, No distention Extremity Exam: other (no c/c/e) OBJECTIVE DATA Vital Signs: Vital Signs - 24 hr Temp Pulse Resp BP BP Pulse Ox 09/20/18 07:03 97.9 F 70 18 139/66 97 09/19/18 23:45 98.1 F 73 18 166/70 94 L 09/19/18 21:35 82 163/68 09/19/18 20:00 97.9 F 82 19 163/68 95 09/19/18 16:00 98.5 F 71 18 169/70 97 09/19/18 12:00 97.5 F 80 20 118/55 09/19/18 10:40 80 170/74 Pain Assessment - Last Documented Pain Intensity 0 Pain Scale Used 0-10 Pain Scale,FLACC Intake and Output: Intake & Output 09/18/18 09/19/18 09/20/18 09/21/18 06:59 06:59 06:59 06:59 Intake Total 1160 1440 1560 Balance 1160 1440 1560 Lab Results: Accuchecks Date 09/19/18 Date 09/19/18 Date 09/19/18 Time 22:00 Time 16:30 Time 11:30 Accucheck Value: 280 Accucheck Value: 177 Accucheck Value: 112 Lab Results-Last 24 Hours 09/20/18 Range/Units 05:10 Sodium 141 (137-145) mmol/L Potassium 3.5 (3.5-5.1) mmol/L Chloride 105 (98-107) mmol/L Carbon Dioxide 30 (22-30) mmol/L Anion Gap 9.9 (5-15) MEQ/L BUN 16 (7-17) mg/dL Creatinine 0.66 (0.52-1.04) mg/dL Estimated GFR > 60.0 ML/MIN Glucose 158 H (74-106) mg/dL Calcium 8.8 (8.4-10.2) mg/dL TSH 3rd Generation 3.830 (0.47-4.68) mIU/L Assessment/Plan (1) Dementia Current Visit: Yes Status: Acute Assessment & Plan: Continue aricept. The hospital has filed to ask that she have a guardian appointed and APS is working with a manager data warehousing about this. RPR, folate and vit B 12 all checked on last admission and normal. Code(s): F03.90 - UNSPECIFIED DEMENTIA WITHOUT BEHAVIORAL DISTURBANCE (2) Hypertension Current Visit: Yes Status: Acute Assessment & Plan: Continue current medications. Losartan just increased yesterday to 100 mg. Code(s): I10 - ESSENTIAL (PRIMARY) HYPERTENSION (3) Type 2 diabetes mellitus with hyperglycemia Current Visit: No Status: Acute Qualifiers: Diabetes mellitus fci insulin use: with termite technician use Qualified Code( s): E11.65 - Type 2 diabetes mellitus with hyperglycemia; Z79.4 - meterman ( current) use of insulin Assessment & Plan: Continue insulin. Code(s): E11.65 - TYPE 2 DIABETES MELLITUS WITH HYPERGLYCEMIA (4) Hypothyroidism Current Visit: No Status: Acute Assessment & Plan: Continue current dose of levothyroxine. TSH now normal. Code(s): E03.9 - HYPOTHYROIDISM, UNSPECIFIED (5) Poor social situation Current Visit: Yes Status: Acute Code(s): Z65.9 - PROBLEM RELATED TO UNSPECIFIED PSYCHOSOCIAL CIRCUMSTANCES
[2018-09-20] MEDS: Klor Con 10 MEQ PO SCH (09:25)
[2018-09-20] MEDS: Cozaar 50 MG PO SCH (09:25)
[2018-09-20] MEDS: SYNTHROID 150 MCG PO SCH (09:25)
[2018-09-20] MEDS: TENORMIN 50 MG PO SCH ×2 (09:25→21:46)
[2018-09-20] MEDS: MIDAMOR PO SCH ×2 (09:27→16:47)
[2018-09-20] MEDS: xanAX 0.5 MG PO SCH ×2 (09:27→19:39)
[2018-09-20] MEDS: NYSTOP 30 GM CREAM TOP SCH ×2 (09:27→21:48)
[2018-09-20] MEDS: Lantus Insulin SQ SCH (09:28)
[2018-09-20] MEDS ORDERED: Haldol 5 MG IM ONE ×2 (21:04)
[2018-09-20] MEDS ORDERED: BENADRYL 50 MG/ML IM ONE ×2 (21:06)
[2018-09-20] MEDS ORDERED: Haldol 5 MG ONE (21:37)
[2018-09-20] MEDS ORDERED: BENADRYL 50 MG/ML ONE (21:37)
[2018-09-20] MEDS: Aricept 10 MG PO SCH (21:47)
[2018-09-20] MEDS: ZOCOR 20MG PO SCH (21:47)
[2018-09-20] MEDS ORDERED: Haldol 5 MG IM PRN (22:48)
[2018-09-20] MEDS ORDERED: BENADRYL 50 MG/ML IM PRN (22:48)
[2018-09-21] MEDS: NovoLOG Insulin SQ SCH ×3 (08:04→17:41)
[2018-09-21] MEDS: Klor Con 10 MEQ PO SCH (09:58)
[2018-09-21] MEDS: Cozaar 50 MG PO SCH (09:58)
[2018-09-21] MEDS: Lantus Insulin SQ SCH (09:59)
[2018-09-21] MEDS: NYSTOP 30 GM CREAM TOP SCH ×2 (10:00→21:52)
[2018-09-21] MEDS: MIDAMOR PO SCH ×2 (10:00→17:41)
[2018-09-21] MEDS: SYNTHROID 150 MCG PO SCH (10:00)
[2018-09-21] MEDS: TENORMIN 50 MG PO SCH ×2 (10:01→21:51)
[2018-09-21] MEDS: xanAX 0.5 MG PO SCH ×2 (10:02→21:52)
--- NOTE | 2018-09-21 10:51 | PCM.NOTE ---
Date and Time: 09/21/18 1046 Subjective Assessment: Last night RN called me for med order as pt was being belligerent. However, pt did finally calm down and the haldol ordered was never given. She told the RN this morning that she was going to join the [employer] as a pursar. She said, "If you don't know what that is, I'm not going to tell you." Per another RN, she said, "I'd just like to kill somebody" earlier this morning. When I come in to examine the pt, she is chatting with the customer advocate. She c/ o "having a cold" but says she doesn't want to take any pills for that. She tells me, "You can go back where she (Dr. Enamorado) came from." I asked to examine her heart and lungs, then told her I would leave her alone after that, and the pt stated, "That's a deal I can live with." - Review of Systems Constitutional: No Fever Abdominal/Gastrointestinal: No Vomiting Objective Exam General Appearance: no apparent distress, alert Neurologic Exam: cooperative, No slurred speech Skin Exam: normal color, warm, dry, No rash Ears, Nose, Throat Exam: other (has a tissue in her hand) Respiratory Exam: normal breath sounds, lungs clear, No crackles/rales, No rhonchi, No wheezing Cardiovascular Exam: regular rate/rhythm, normal heart sounds, No murmur Extremity Exam: normal inspection Back Exam: normal inspection, No rash OBJECTIVE DATA Vital Signs: Vital Signs - 24 hr Temp Pulse Resp BP BP Pulse Ox 09/21/18 10:01 70 144/78 09/21/18 07:26 97.8 F 70 18 144/78 96 09/21/18 00:47 18 09/20/18 21:46 84 169/74 09/20/18 20:55 169/74 09/20/18 20:00 97.9 F 91 H 19 97 09/20/18 16:00 98.9 F 72 16 185/78 96 09/20/18 11:38 97.9 F 74 18 141/63 96 Pain Assessment - Last Documented Pain Intensity 0 Pain Scale Used 0-10 Pain Scale Intake and Output: Intake & Output 09/18/18 09/19/18 09/20/18 09/21/18 11:59 11:59 11:59 11:59 Intake Total 1740 1220 1560 960 Balance 1740 1220 1560 960 Lab Results: Accuchecks Date 09/21/18 Date 09/20/18 Date 09/20/18 Date 09/20/18 Time 07:30 Time 16:30 Time 11:30 Accucheck Value: 183 Accucheck Value: 266 Accucheck Value: 186 Accucheck Value: 209 Assessment/Plan (1) Dementia Current Visit: Yes Status: Acute Qualifiers: Dementia type: unspecified type Dementia behavioral disturbance: with behavioral disturbance Qualified Code(s): F03.91 - Unspecified dementia with behavioral disturbance Assessment & Plan: She is on xanax, otherwise no regular psych meds. She is very reluctant to take pills. Haldol if needed, but has not been required yet despite being ordered on 2 different occasions. Code(s): F03.90 - UNSPECIFIED DEMENTIA WITHOUT BEHAVIORAL DISTURBANCE (2) Hypertension Current Visit: Yes Status: Chronic Qualifiers: Hypertension type: essential hypertension Qualified Code(s): I10 - Essential (primary) hypertension Assessment & Plan: loartan just increased yesterday to 100mg. Systolic BP today 169 and 144. Code(s): I10 - ESSENTIAL (PRIMARY) HYPERTENSION (3) Poor social situation Current Visit: Yes Status: Chronic Assessment & Plan: Apparently APS is working on having a guardian appointed for her. Code(s): Z65.9 - PROBLEM RELATED TO UNSPECIFIED PSYCHOSOCIAL CIRCUMSTANCES
[2018-09-21] MEDS: Aricept 10 MG PO SCH (21:50)
[2018-09-21] MEDS: ZOCOR 20MG PO SCH (21:51)
[2018-09-22] MEDS: Klor Con 10 MEQ PO SCH (09:48)
[2018-09-22] MEDS: Cozaar 50 MG PO SCH (09:48)
[2018-09-22] MEDS: SYNTHROID 150 MCG PO SCH (09:49)
[2018-09-22] MEDS: MIDAMOR PO SCH ×2 (09:49→17:10)
[2018-09-22] MEDS: TENORMIN 50 MG PO SCH ×2 (09:50→22:37)
[2018-09-22] MEDS: NYSTOP 30 GM CREAM TOP SCH ×2 (09:51→22:47)
[2018-09-22] MEDS: NovoLOG Insulin SQ SCH ×3 (09:51→17:11)
[2018-09-22] MEDS: xanAX 0.5 MG PO SCH ×2 (09:51→22:37)
[2018-09-22] MEDS: Lantus Insulin SQ SCH (10:45)
--- NOTE | 2018-09-22 13:01 | PCM.NOTE ---
Date and Time: 09/22/18 1255 Subjective Assessment: Pt slept all night and has been pleasant all day so far.Still c/o "cold symptoms - they haven't gotten any better." (Discussed briefly yesterday and she didn't want any pills.) She has an brettapproved book open but I did not see her reading. We discuss her stuffed bears and her book briefly before her exam. - Review of Systems Constitutional: No Fever Abdominal/Gastrointestinal: No Vomiting Objective Exam General Appearance: no apparent distress, alert Neurologic Exam: cooperative, No slurred speech Skin Exam: normal color, warm, dry, No rash Neck Exam: normal inspection Respiratory Exam: normal breath sounds, lungs clear, No crackles/rales, No rhonchi, No wheezing Cardiovascular Exam: regular rate/rhythm, normal heart sounds, No murmur OBJECTIVE DATA Vital Signs: Vital Signs - 24 hr Temp Pulse Resp BP BP Pulse Ox 09/22/18 11:09 20 97 09/22/18 09:50 80 130/68 09/22/18 07:29 97.6 F 82 18 130/68 97 09/21/18 21:51 82 138/75 09/21/18 20:00 97.8 F 82 20 138/75 96 09/21/18 16:10 97.8 F 80 18 132/74 96 Pain Assessment - Last Documented Pain Intensity 0 Pain Scale Used [facility] Intake and Output: Intake & Output 09/20/18 09/21/18 09/22/18 09/23/18 11:59 11:59 11:59 11:59 Intake Total 1560 960 660 Balance 1560 960 660 Lab Results: Accuchecks Date 09/22/18 Date 09/22/18 Date 09/21/18 Time 01:30 Time 07:30 Time 11:30 Accucheck Value: 234 Accucheck Value: 199 Accucheck Value: 242 Accucheck Value: 202 Assessment/Plan (1) Dementia Current Visit: Yes Status: Acute Qualifiers: Dementia type: unspecified type Dementia behavioral disturbance: with behavioral disturbance Qualified Code(s): F03.91 - Unspecified dementia with behavioral disturbance Assessment & Plan: Behavior today has been good. Code(s): F03.90 - UNSPECIFIED DEMENTIA WITHOUT BEHAVIORAL DISTURBANCE (2) Hypertension Current Visit: Yes Status: Chronic Qualifiers: Hypertension type: essential hypertension Qualified Code(s): I10 - Essential (primary) hypertension Assessment & Plan: BP 130-140/68-78. Code(s): I10 - ESSENTIAL (PRIMARY) HYPERTENSION (3) Poor social situation Current Visit: Yes Status: Chronic Assessment & Plan: APS is involved and apparently a cullet crusher is working on POA. Code(s): Z65.9 - PROBLEM RELATED TO UNSPECIFIED PSYCHOSOCIAL CIRCUMSTANCES
[2018-09-22] MEDS: ZOCOR 20MG PO SCH (22:37)
[2018-09-22] MEDS: Aricept 10 MG PO SCH (22:37)
[2018-09-23] MEDS: NovoLOG Insulin SQ SCH ×2 (08:12→13:20)
--- NOTE | 2018-09-23 08:50 | PCM.NOTE ---
Date and Time: 09/23/18 0845 Subjective Assessment: Patient reports runny nose and cold symptoms. She has a bouquet of baires at her bedside. She reports she is would like more food but when I asked what she would like, she said she was not going to request anything because that makes them mad. She reports her insulin does not help her when I encouraged her to take it. She feels like the rash under her left breast is better. Her shoes were untied and I asked if I could tie them for her so she doesn't trip but she declines and says she wants them that way. - Review of Systems All Other Systems: Unable due to dementia Objective Exam General Appearance: no apparent distress, alert, obese Neurologic Exam: alert Skin Exam: normal color, warm, other (no erythema under left breast or under left arm, OB nurse present for exam) Respiratory Exam: normal breath sounds, lungs clear, No crackles/rales, No rhonchi, No wheezing Cardiovascular Exam: regular rate/rhythm, normal heart sounds, No murmur, No friction rub, No gallop Extremity Exam: other (no c/c/e) OBJECTIVE DATA Vital Signs: Vital Signs - 24 hr Temp Pulse Resp BP BP Pulse Ox 09/23/18 08:00 98.3 F 65 16 188/79 97 09/22/18 20:00 98.1 F 88 20 138/78 96 09/22/18 16:25 20 96 09/22/18 11:09 20 97 09/22/18 09:50 80 130/68 Pain Assessment - Last Documented Pain Intensity 0 Pain Scale Used [facility] Intake and Output: Intake & Output 09/21/18 09/22/18 09/23/18 09/24/18 06:59 06:59 06:59 06:59 Intake Total 1320 420 900 Balance 1320 420 900 Lab Results: Accuchecks Date 09/22/18 Date 09/22/18 Time 16:30 Time 01:30 Accucheck Value: 253 Accucheck Value: 129 Accucheck Value: 234 Assessment/Plan (1) Dementia Current Visit: Yes Status: Acute Qualifiers: Dementia type: unspecified type Dementia behavioral disturbance: with behavioral disturbance Qualified Code(s): F03.91 - Unspecified dementia with behavioral disturbance Assessment & Plan: Continue aricept. Awaiting court's decision about guardianship. Code(s): F03.90 - UNSPECIFIED DEMENTIA WITHOUT BEHAVIORAL DISTURBANCE (2) Hypertension Current Visit: Yes Status: Chronic Qualifiers: Hypertension type: essential hypertension Qualified Code(s): I10 - Essential (primary) hypertension Assessment & Plan: Continue her current medication. She did take her losartan yesterday but refused her pm dose of amiloride. Code(s): I10 - ESSENTIAL (PRIMARY) HYPERTENSION (3) Type 2 diabetes mellitus with hyperglycemia Current Visit: No Status: Acute Qualifiers: Diabetes mellitus prison insulin use: with dedicated intermodal truck driver use Qualified Code( s): E11.65 - Type 2 diabetes mellitus with hyperglycemia; Z79.4 - halfway ( current) use of insulin Assessment & Plan: Patient refused all her insulin yesterday. Patient encouraged to take it today. If she still refuses, may need to try glipizide ER. Code(s): E11.65 - TYPE 2 DIABETES MELLITUS WITH HYPERGLYCEMIA (4) Hypothyroidism Current Visit: No Status: Acute Assessment & Plan: Continue levothyroxine. Code(s): E03.9 - HYPOTHYROIDISM, UNSPECIFIED (5) Poor social situation Current Visit: Yes Status: Chronic Assessment & Plan: APS involved. Code(s): Z65.9 - PROBLEM RELATED TO UNSPECIFIED PSYCHOSOCIAL CIRCUMSTANCES
[2018-09-23] MEDS: TENORMIN 50 MG PO SCH ×2 (09:45→20:10)
[2018-09-23] MEDS: Cozaar 50 MG PO SCH (09:47)
[2018-09-23] MEDS: SYNTHROID 150 MCG PO SCH (09:48)
[2018-09-23] MEDS: xanAX 0.5 MG PO SCH ×2 (09:48→20:11)
[2018-09-23] MEDS: MIDAMOR PO SCH ×2 (09:48→20:08)
[2018-09-23] MEDS: Klor Con 10 MEQ PO SCH (09:48)
[2018-09-23] MEDS: Aricept 10 MG PO SCH (20:08)
[2018-09-23] MEDS: ZOCOR 20MG PO SCH (20:11)
[2018-09-24] MEDS: NovoLOG Insulin SQ SCH (00:59)
[2018-09-24] MEDS: Lantus Insulin SQ SCH ×2 (01:00→10:37)
[2018-09-24] MEDS: TYLENOL 325 MG PO PRN (08:38)
[2018-09-24] MEDS: Glucotrol 5 MG PO SCH ×2 (08:39→17:23)
--- NOTE | 2018-09-24 08:40 | PCM.NOTE ---
Date and Time: 09/24/18 08 Subjective Assessment: She was wandering at nurses station yesterday evening. She reports she feels a little cold today. She tells me that "the one to ask is the one that's out there. [place] has been [place] to sea. My went to sea once. I can't remember for how long." She denies pain. She denies constipation. She refused all her insulin yesterday and her blood glucoses are now in the 300's. I tried to discuss this with her and she states that this is normal for her and when I said it wasn't good for her body she told me that her body was used to it. - Review of Systems Constitutional: Other (feels cold) Eyes: No Symptoms Ears, Nose, & Throat: No Symptoms Respiratory: No Symptoms Cardiac: No Symptoms Abdominal/Gastrointestinal: No Symptoms Genitourinary Symptoms: No Symptoms Musculoskeletal: No Symptoms Objective Exam General Appearance: no apparent distress, alert, obese Neurologic Exam: alert, cooperative, confusion Skin Exam: normal color, warm, dry, No rash Respiratory Exam: normal breath sounds, lungs clear, No crackles/rales, No rhonchi, No wheezing Cardiovascular Exam: regular rate/rhythm, normal heart sounds, No murmur, No friction rub, No gallop Gastrointestinal/Abdomen Exam: soft, normal bowel sounds, No tenderness, No distention, No mass Extremity Exam: other (no c/c/e) OBJECTIVE DATA Vital Signs: Vital Signs - 24 hr Temp Pulse Resp BP BP Pulse Ox 09/24/18 07:41 97.6 F 86 20 142/70 96 09/23/18 20:10 81 156/70 09/23/18 20:00 97.5 F 81 18 156/70 94 L 09/23/18 16:00 98.7 F 81 18 186/96 97 09/23/18 09:45 65 188/79 Pain Assessment - Last Documented Pain Intensity 0 Pain Scale Used [facility] Intake and Output: Intake & Output 09/22/18 09/23/18 09/24/18 09/25/18 06:59 06:59 06:59 06:59 Intake Total 927 816 8359 Balance 975 139 5206 Weight 77 kg Lab Results: Accuchecks Date 09/24/18 Accucheck Value: 387 Assessment/Plan (1) Dementia Current Visit: Yes Status: Acute Qualifiers: Dementia type: unspecified type Dementia behavioral disturbance: with behavioral disturbance Qualified Code(s): F03.91 - Unspecified dementia with behavioral disturbance Assessment & Plan: Continue with aricept. Awaiting cordwainer's decision about guardianship as she has no guardian or family member to help her make decisions. She will need to be somewhere where she can be monitored 24 hours a day due to wandering. Code(s): F03.90 - UNSPECIFIED DEMENTIA WITHOUT BEHAVIORAL DISTURBANCE (2) Hypertension Current Visit: Yes Status: Chronic Qualifiers: Hypertension type: essential hypertension Qualified Code(s): I10 - Essential (primary) hypertension Assessment & Plan: Fairly well controlled. continue current medication. Code(s): I10 - ESSENTIAL (PRIMARY) HYPERTENSION (3) Type 2 diabetes mellitus with hyperglycemia Current Visit: No Status: Acute Qualifiers: Diabetes mellitus mcfp insulin use: with mcfp use Qualified Code( s): E11.65 - Type 2 diabetes mellitus with hyperglycemia; Z79.4 - halfway ( current) use of insulin Assessment & Plan: Will stop short acting insulin since she is refusing anyway and start glipizide since she is usually taking her oral medications. Will continue lantus daily. Continue to monitor blood glucoses. Continue with sliding scale if needed and if she is willing to take the short acting insulin. Code(s): E11.65 - TYPE 2 DIABETES MELLITUS WITH HYPERGLYCEMIA (4) Hypothyroidism Current Visit: No Status: Acute Assessment & Plan: Continue levothyroxine. Code(s): E03.9 - HYPOTHYROIDISM, UNSPECIFIED (5) Poor social situation Current Visit: Yes Status: Chronic Assessment & Plan: APS involved. Code(s): Z65.9 - PROBLEM RELATED TO UNSPECIFIED PSYCHOSOCIAL CIRCUMSTANCES
[2018-09-24] MEDS: NovoLOG Insulin SQ PRN ×2 (08:41→13:21)
[2018-09-24] MEDS: SYNTHROID 150 MCG PO SCH (10:35)
[2018-09-24] MEDS: Cozaar 50 MG PO SCH (10:36)
[2018-09-24] MEDS: Klor Con 10 MEQ PO SCH (10:37)
[2018-09-24] MEDS: xanAX 0.5 MG PO SCH ×2 (10:37→21:02)
[2018-09-24] MEDS: TENORMIN 50 MG PO SCH ×2 (10:49→21:01)
[2018-09-24] MEDS: MIDAMOR PO SCH ×2 (13:17→17:25)
[2018-09-24] MEDS: Aricept 10 MG PO SCH (20:58)
[2018-09-24] MEDS: ZOCOR 20MG PO SCH (21:02)
[2018-09-25] MEDS: Glucotrol 5 MG PO SCH ×2 (08:17→16:42)
--- NOTE | 2018-09-25 08:54 | PCM.NOTE ---
Date and Time: 09/25/18 0849 Subjective Assessment: Patient denies any pain or constipation. She is eating her breakfast. Staff reports that she continues to be able to be redirected and enjoys being out of her room and near the nurses station. - Review of Systems All Other Systems: Unable due to dementia (unobtainable besides what is in subjective.) Objective Exam General Appearance: no apparent distress Neurologic Exam: alert, confusion Skin Exam: normal color, warm, dry Respiratory Exam: normal breath sounds, lungs clear, No crackles/rales, No rhonchi, No wheezing Cardiovascular Exam: regular rate/rhythm, No murmur, No friction rub, No gallop Gastrointestinal/Abdomen Exam: soft, normal bowel sounds, No tenderness, No distention, No mass OBJECTIVE DATA Vital Signs: Vital Signs - 24 hr Temp Pulse Resp BP BP Pulse Ox 09/25/18 07:23 97.8 F 86 18 150/78 96 09/25/18 00:10 20 09/24/18 21:01 76 139/79 09/24/18 20:00 97.9 F 76 18 139/79 96 09/24/18 16:00 97.9 F 88 20 136/80 98 09/24/18 10:50 96.8 F 84 20 152/78 96 09/24/18 10:49 80 133/97 Pain Assessment - Last Documented Pain Intensity 0 Pain Scale Used 0-10 Pain Scale Intake and Output: Intake & Output 09/23/18 09/24/18 09/25/18 09/26/18 06:59 06:59 06:59 06:59 Intake Total 900 1480 240 Balance 900 1480 240 Weight 77 kg Lab Results: Accuchecks Date 09/24/18 Date 09/24/18 Time 16:30 Time 11:30 Accucheck Value: 277 Accucheck Value: 177 Accucheck Value: 270 Multi-Disciplinary Progress Notes: Multi-Disciplinary Progress Notes 09/24/18 15:48 Case Management Note by Alba Murdock SPOKE WITH BENITO AT [facility], NO UPDATES AVAILABLE AT THIS TIME. Initialized on 09/24/18 15:48 - END OF NOTE 09/24/18 09:45 (created 09/24/18 13:29) Case Management Note by Alba Murdock MESSAGE LEFT WITH ELSIE OLIVER, FOLLOWING UP ON STATUS OF GUARDIANSHIP. AWAIT RETURN CALL. Initialized on 09/24/18 13:29 - END OF NOTE Assessment/Plan (1) Dementia Current Visit: Yes Status: Acute Qualifiers: Dementia type: unspecified type Dementia behavioral disturbance: with behavioral disturbance Qualified Code(s): F03.91 - Unspecified dementia with behavioral disturbance Assessment & Plan: Continuing to await for possible emergency guardianship through court system at [facility] so she will have someone to help with her placement for manager eligibility care. She continues to need supervision 24 hours a day. Continue aricept. Code(s): F03.90 - UNSPECIFIED DEMENTIA WITHOUT BEHAVIORAL DISTURBANCE (2) Hypertension Current Visit: Yes Status: Chronic Qualifiers: Hypertension type: essential hypertension Qualified Code(s): I10 - Essential (primary) hypertension Assessment & Plan: Continue current medications. Code(s): I10 - ESSENTIAL (PRIMARY) HYPERTENSION (3) Type 2 diabetes mellitus with hyperglycemia Current Visit: No Status: Acute Qualifiers: Diabetes mellitus shelter insulin use: with manager eligibility use Qualified Code( s): E11.65 - Type 2 diabetes mellitus with hyperglycemia; Z79.4 - group home ( current) use of insulin Assessment & Plan: She took her lantus and glipizide yesterday. Blood glucoses a little better controlled with the oral medications as she was refusing all insulin before. Code(s): E11.65 - TYPE 2 DIABETES MELLITUS WITH HYPERGLYCEMIA (4) Hypothyroidism Current Visit: No Status: Acute Assessment & Plan: Continue levothyroxine. Code(s): E03.9 - HYPOTHYROIDISM, UNSPECIFIED (5) Poor social situation Current Visit: Yes Status: Chronic Assessment & Plan: APS working with hospital for order for emergency guardianship through court system. Per data recovery planner, they said this may take 21 days. Code(s): Z65.9 - PROBLEM RELATED TO UNSPECIFIED PSYCHOSOCIAL CIRCUMSTANCES
[2018-09-25] MEDS: TENORMIN 50 MG PO SCH ×2 (10:45→23:15)
[2018-09-25] MEDS: Cozaar 50 MG PO SCH (10:45)
[2018-09-25] MEDS: Klor Con 10 MEQ PO SCH (10:45)
[2018-09-25] MEDS: SYNTHROID 150 MCG PO SCH (10:45)
[2018-09-25] MEDS: Lantus Insulin SQ SCH (10:46)
[2018-09-25] MEDS: xanAX 0.5 MG PO SCH ×2 (10:46→23:16)
[2018-09-25] MEDS: MIDAMOR PO SCH ×2 (10:46→16:42)
[2018-09-25] MEDS: Aricept 10 MG PO SCH (23:14)
[2018-09-25] MEDS: ZOCOR 20MG PO SCH (23:16)
--- NOTE | 2018-09-26 09:09 | PCM.NOTE ---
Date and Time: 09/26/18 0904 Subjective Assessment: Patient reports she just doesn't feel good today. She denies constipation or diarrhea. She denies abdominal pain or any pain anywhere. When asked she reports she has been getting up and moving around. Her nurse has asked to change her vital signs to only when awake. From her MAR, she has been taking her medications and allowing the lantus to be given to her daily. - Review of Systems Constitutional: No Symptoms Eyes: No Symptoms Ears, Nose, & Throat: No Symptoms Respiratory: No Symptoms Cardiac: No Symptoms Abdominal/Gastrointestinal: No Symptoms Objective Exam General Appearance: no apparent distress, alert, obese Neurologic Exam: alert, other (Seems put out with asking her questions, but she is cooperative and let me listen to her heart and lungs.) Skin Exam: normal color, warm, dry, No rash Respiratory Exam: normal breath sounds, lungs clear, No crackles/rales, No rhonchi, No wheezing Cardiovascular Exam: regular rate/rhythm, normal heart sounds, No murmur, No friction rub, No gallop OBJECTIVE DATA Vital Signs: Vital Signs - 24 hr Temp Pulse Resp BP BP Pulse Ox 09/26/18 03:00 20 09/25/18 23:15 80 145/79 09/25/18 19:35 97.7 F 80 18 145/79 98 09/25/18 11:13 20 09/25/18 10:45 68 Pain Assessment - Last Documented Pain Intensity 0 Pain Scale Used [facility] Intake and Output: Intake & Output 09/24/18 09/25/18 09/26/18 09/27/18 06:59 06:59 06:59 06:59 Intake Total 1480 240 960 Balance 1480 240 960 Weight 77 kg Lab Results: Accuchecks Date 09/26/18 Date 09/25/18 Date 09/25/18 Time 07:30 Time 16:30 Time 11:30 Accucheck Value: 308 Accucheck Value: 251 Accucheck Value: 314 Assessment/Plan (1) Dementia Current Visit: Yes Status: Acute Qualifiers: Dementia type: unspecified type Dementia behavioral disturbance: with behavioral disturbance Qualified Code(s): F03.91 - Unspecified dementia with behavioral disturbance Assessment & Plan: Continue Aricept. She has not needed haldol prn order so will discontinue this. She responds well to redirection. Staff is working on activities for her. Awaiting word about guardianship for her to proceed with placement. She continues to need 24 hour supervision. Code(s): F03.90 - UNSPECIFIED DEMENTIA WITHOUT BEHAVIORAL DISTURBANCE (2) Hypertension Current Visit: Yes Status: Chronic Qualifiers: Hypertension type: essential hypertension Qualified Code(s): I10 - Essential (primary) hypertension Assessment & Plan: Well controlled. Code(s): I10 - ESSENTIAL (PRIMARY) HYPERTENSION (3) Type 2 diabetes mellitus with hyperglycemia Current Visit: No Status: Acute Qualifiers: Diabetes mellitus [facility] insulin use: with termite technician use Qualified Code( s): E11.65 - Type 2 diabetes mellitus with hyperglycemia; Z79.4 - exterminator ( current) use of insulin Assessment & Plan: continue lantus 30 units and will increase glipizide to 10 mg po bid. Code(s): E11.65 - TYPE 2 DIABETES MELLITUS WITH HYPERGLYCEMIA (4) Hypothyroidism Current Visit: No Status: Acute Assessment & Plan: Continue levothyroxine. Code(s): E03.9 - HYPOTHYROIDISM, UNSPECIFIED (5) Poor social situation Current Visit: Yes Status: Chronic Assessment & Plan: APS is involved. Hospital filed papers for her to have a guardian and awaiting alarm signal operator's decision. Code(s): Z65.9 - PROBLEM RELATED TO UNSPECIFIED PSYCHOSOCIAL CIRCUMSTANCES
[2018-09-26] MEDS: xanAX 0.5 MG PO SCH ×2 (10:34→21:37)
[2018-09-26] MEDS: Cozaar 50 MG PO SCH (10:34)
[2018-09-26] MEDS: SYNTHROID 150 MCG PO SCH (10:34)
[2018-09-26] MEDS: TENORMIN 50 MG PO SCH ×2 (10:34→21:36)
[2018-09-26] MEDS: Glucotrol 5 MG PO SCH ×3 (10:34→16:42)
[2018-09-26] MEDS: Klor Con 10 MEQ PO SCH (10:34)
[2018-09-26] MEDS: MIDAMOR PO SCH ×2 (10:35→16:44)
[2018-09-26] MEDS: Lantus Insulin SQ SCH (10:36)
[2018-09-26] MEDS: NovoLOG Insulin SQ PRN (12:17)
[2018-09-26] MEDS: Aricept 10 MG PO SCH (21:36)
[2018-09-26] MEDS: ZOCOR 20MG PO SCH (21:37)
[2018-09-27] MEDS: Glucotrol 5 MG PO SCH ×2 (08:06→16:15)
--- NOTE | 2018-09-27 08:56 | PCM.NOTE ---
Date and Time: 09/27/18 0851 Subjective Assessment: Patient denies pain; states her cold is a little better; not as happy about asking questions after I asked her if she could tell me where she was. She said "Can we just say I know where I am and forget about it because I'm getting real tired of it." - Review of Systems All Other Systems: Unable due to dementia (unobtained besides what is in HPI) Objective Exam General Appearance: no apparent distress, obese Neurologic Exam: alert, cooperative, normal mood/affect, No oriented x 3 Skin Exam: normal color, warm, dry Respiratory Exam: normal breath sounds, lungs clear, No crackles/rales, No rhonchi, No wheezing Cardiovascular Exam: regular rate/rhythm, normal heart sounds, No murmur, No friction rub, No gallop OBJECTIVE DATA Vital Signs: Vital Signs - 24 hr Temp Pulse Resp BP BP Pulse Ox 09/27/18 08:00 98.5 F 80 18 178/71 97 09/26/18 21:36 80 141/77 09/26/18 20:00 97.6 F 80 19 141/77 97 09/26/18 17:07 98.4 F 77 18 183/80 96 09/26/18 11:00 98.2 F 72 18 146/64 97 09/26/18 10:34 84 Pain Assessment - Last Documented Pain Intensity 0 Pain Scale Used 0-10 Pain Scale Intake and Output: Intake & Output 09/25/18 09/26/18 09/27/18 09/28/18 06:59 06:59 06:59 06:59 Intake Total 240 960 860 Balance 240 960 860 Lab Results: Accuchecks Date 09/27/18 Date 09/26/18 Date 09/26/18 Time 07:30 Time 16:29 Time 11:30 Accucheck Value: 168 Accucheck Value: 196 Accucheck Value: 159 Accucheck Value: 353 Assessment/Plan (1) Dementia Current Visit: Yes Status: Acute Qualifiers: Dementia type: unspecified type Dementia behavioral disturbance: with behavioral disturbance Qualified Code(s): F03.91 - Unspecified dementia with behavioral disturbance Assessment & Plan: Continue Aricept. Continue with redirection, providing activities. Awaiting emergency guardianship decision from court. APS involved. Patient does not have any safe place to go if discharged. No accepting facilities as no payer source until guardian appointed to help sort through finances. Family is not involved. Code(s): F03.90 - UNSPECIFIED DEMENTIA WITHOUT BEHAVIORAL DISTURBANCE (2) Hypertension Current Visit: Yes Status: Chronic Qualifiers: Hypertension type: essential hypertension Qualified Code(s): I10 - Essential (primary) hypertension Assessment & Plan: Fairly well controlled. Continue current medication. Code(s): I10 - ESSENTIAL (PRIMARY) HYPERTENSION (3) Type 2 diabetes mellitus with hyperglycemia Current Visit: No Status: Acute Qualifiers: Diabetes mellitus alf insulin use: with alf use Qualified Code( s): E11.65 - Type 2 diabetes mellitus with hyperglycemia; Z79.4 - termite helper ( current) use of insulin Assessment & Plan: Blood glucoses better on lantus daily and glipizide. She was refusing all insulin when it was ordered 4 x a day (short acting and lanuts). Code(s): E11.65 - TYPE 2 DIABETES MELLITUS WITH HYPERGLYCEMIA (4) Hypothyroidism Current Visit: No Status: Acute Assessment & Plan: Continue levothyroxine. Code(s): E03.9 - HYPOTHYROIDISM, UNSPECIFIED (5) Poor social situation Current Visit: Yes Status: Chronic Code(s): Z65.9 - PROBLEM RELATED TO UNSPECIFIED PSYCHOSOCIAL CIRCUMSTANCES
[2018-09-27] MEDS: TENORMIN 50 MG PO SCH ×2 (09:00→22:45)
[2018-09-27] MEDS: Cozaar 50 MG PO SCH (09:01)
[2018-09-27] MEDS: Klor Con 10 MEQ PO SCH (09:01)
[2018-09-27] MEDS: xanAX 0.5 MG PO SCH ×2 (09:01→22:46)
[2018-09-27] MEDS: SYNTHROID 150 MCG PO SCH (09:01)
[2018-09-27] MEDS: Lantus Insulin SQ SCH (09:01)
[2018-09-27] MEDS: MIDAMOR PO SCH ×2 (09:02→16:15)
[2018-09-27] MEDS: NovoLOG Insulin SQ PRN (11:58)
[2018-09-27] MEDS: Aricept 10 MG PO SCH (22:45)
[2018-09-27] MEDS: ZOCOR 20MG PO SCH (22:46)
[2018-09-28] MEDS: SYNTHROID 150 MCG PO SCH (10:26)
[2018-09-28] MEDS: TENORMIN 50 MG PO SCH ×2 (10:26→21:19)
[2018-09-28] MEDS: Glucotrol 5 MG PO SCH ×2 (10:26→16:20)
[2018-09-28] MEDS: Cozaar 50 MG PO SCH (10:26)
[2018-09-28] MEDS: Lantus Insulin SQ SCH (10:27)
[2018-09-28] MEDS: MIDAMOR PO SCH ×2 (10:27→16:22)
[2018-09-28] MEDS: xanAX 0.5 MG PO SCH ×2 (10:27→21:19)
[2018-09-28] MEDS: Klor Con 10 MEQ PO SCH (10:27)
[2018-09-28] MEDS: NovoLOG Insulin SQ PRN ×3 (12:52→21:31)
[2018-09-28] MEDS: Aricept 10 MG PO SCH (21:18)
[2018-09-28] MEDS: ZOCOR 20MG PO SCH (21:19)
[2018-09-29] MEDS: Glucotrol 5 MG PO SCH ×2 (07:40→17:31)
[2018-09-29] MEDS: Cozaar 50 MG PO SCH (10:52)
[2018-09-29] MEDS: Lantus Insulin SQ SCH (10:52)
[2018-09-29] MEDS: Klor Con 10 MEQ PO SCH (10:53)
[2018-09-29] MEDS: TENORMIN 50 MG PO SCH ×2 (10:53→21:10)
[2018-09-29] MEDS: xanAX 0.5 MG PO SCH ×2 (10:53→21:11)
[2018-09-29] MEDS: SYNTHROID 150 MCG PO SCH (10:53)
[2018-09-29] MEDS: MIDAMOR PO SCH ×2 (10:55→17:23)
[2018-09-29] MEDS: NovoLOG Insulin SQ PRN (12:51)
[2018-09-29] MEDS ORDERED: Glucotrol 5 MG ONE ×2 (17:30)
[2018-09-29] MEDS: Aricept 10 MG PO SCH (21:09)
[2018-09-29] MEDS: ZOCOR 20MG PO SCH (21:12)
[2018-09-30] MEDS: Glucotrol 5 MG PO SCH ×2 (08:43→17:02)
[2018-09-30] MEDS: TYLENOL 325 MG PO PRN (08:44)
[2018-09-30] MEDS: Lantus Insulin SQ SCH (08:44)
--- NOTE | 2018-09-30 08:47 | PCM.NOTE ---
Date and Time: 09/30/18 0844 Subjective Assessment: Patient declines physical exam today.She states she has a headache but doesn't think it's from drinking. When I asked her how her weekend was she said, "we won 't talk about that." Her DOLL WIG MAKER said she had been up at at the nurses station most of the day yesterday. - Review of Systems All Other Systems: Unable due to dementia (unobtainable besides in hpi; pt also talat any pain) Objective Exam General Appearance: no apparent distress Neurologic Exam: alert Skin Exam: normal color, warm, dry OBJECTIVE DATA Vital Signs: Vital Signs - 24 hr Temp Pulse Resp BP BP Pulse Ox 09/30/18 08:00 98.2 F 66 18 141/66 96 09/29/18 21:10 72 132/59 09/29/18 20:41 98.3 F 72 19 132/59 94 L 09/29/18 20:00 98.3 F 72 19 132/59 94 L 09/29/18 16:15 98.4 F 86 18 137/81 96 09/29/18 12:05 97.9 F 89 20 156/83 96 09/29/18 10:53 77 142/86 Pain Assessment - Last Documented Pain Intensity 0 Pain Scale Used [facility] Intake and Output: Intake & Output 09/28/18 09/29/18 09/30/18 10/01/18 06:59 06:59 06:59 06:59 Intake Total 360 400 780 Output Total 1 Balance 359 400 780 Lab Results: Accuchecks Date 09/29/18 Date 09/29/18 Date 09/29/18 Time 21:00 Time 16:30 Time 11:30 Accucheck Value: 220 Accucheck Value: 139 Accucheck Value: 290 Multi-Disciplinary Progress Notes: Multi-Disciplinary Progress Notes 09/29/18 14:28 Case Management Note by Alba Murdock CONTINUE TO WAIT ON GUARDIANSHIP. PT IS PLEASANTLY CONFUSED. WILL CALL [facility] AGAIN SUNDAY FOR FOLLOWUP. Initialized on 09/29/18 14:28 - END OF NOTE Assessment/Plan (1) Dementia Current Visit: Yes Status: Acute Qualifiers: Dementia type: unspecified type Dementia behavioral disturbance: with behavioral disturbance Qualified Code(s): F03.91 - Unspecified dementia with behavioral disturbance Assessment & Plan: Continue aricept; awaiting guardianship process from court system in [facility]; APS involved. Code(s): F03.90 - UNSPECIFIED DEMENTIA WITHOUT BEHAVIORAL DISTURBANCE (2) Hypertension Current Visit: Yes Status: Chronic Qualifiers: Hypertension type: essential hypertension Qualified Code(s): I10 - Essential (primary) hypertension Assessment & Plan: Well controlled. Continue current medication. Code(s): I10 - ESSENTIAL (PRIMARY) HYPERTENSION (3) Type 2 diabetes mellitus with hyperglycemia Current Visit: No Status: Acute Qualifiers: Diabetes mellitus termite control technician insulin use: with snf use Qualified Code( s): E11.65 - Type 2 diabetes mellitus with hyperglycemia; Z79.4 - intermediate card tender ( current) use of insulin Assessment & Plan: Continue lantus and glipizide and low dose sliding scale if needed. Code(s): E11.65 - TYPE 2 DIABETES MELLITUS WITH HYPERGLYCEMIA (4) Hypothyroidism Current Visit: No Status: Acute Assessment & Plan: Continue levothyroxine. Code(s): E03.9 - HYPOTHYROIDISM, UNSPECIFIED (5) Poor social situation Current Visit: Yes Status: Chronic Code(s): Z65.9 - PROBLEM RELATED TO UNSPECIFIED PSYCHOSOCIAL CIRCUMSTANCES
[2018-09-30] MEDS: xanAX 0.5 MG PO SCH ×2 (12:13→22:14)
[2018-09-30] MEDS: SYNTHROID 150 MCG PO SCH (12:13)
[2018-09-30] MEDS: TENORMIN 50 MG PO SCH ×2 (12:13→22:14)
[2018-09-30] MEDS: Cozaar 50 MG PO SCH (12:13)
[2018-09-30] MEDS: Klor Con 10 MEQ PO SCH (12:14)
[2018-09-30] MEDS: MIDAMOR PO SCH ×2 (12:14→17:02)
[2018-09-30] MEDS: NovoLOG Insulin SQ PRN ×2 (17:05→22:14)
[2018-09-30] MEDS: Aricept 10 MG PO SCH (22:13)
[2018-09-30] MEDS: ZOCOR 20MG PO SCH (22:14)
[2018-10-01] MEDS: Glucotrol 5 MG PO SCH ×2 (08:12→17:41)
--- NOTE | 2018-10-01 08:31 | PCM.NOTE ---
Date and Time: 10/01/18826 Subjective Assessment: Patient reports that her was in security with the [employer] and spoke several languages. She reports she found him one morning. She is paranoid that someone has put something in her lemonade. She tells me to throw it out and not drink it because I don't want what is in it in my system. She reports that she doesn't want anyone to get hurt and advises me to "stay out of their way.". - Review of Systems Constitutional: No Symptoms, Other (states she feels cold (thermostat is set on 60 in her room)) Respiratory: No Symptoms Cardiac: No Symptoms Abdominal/Gastrointestinal: No Symptoms Additional Findings: She denies any pain. Objective Exam General Appearance: no apparent distress, other (paranoid this AM) Neurologic Exam: alert, cooperative Skin Exam: normal color, warm, dry, No rash Respiratory Exam: normal breath sounds, lungs clear, No crackles/rales, No rhonchi, No wheezing Cardiovascular Exam: regular rate/rhythm, normal heart sounds, No murmur, No friction rub, No gallop Gastrointestinal/Abdomen Exam: soft, normal bowel sounds, No tenderness, No distention, No mass Extremity Exam: other (no c/c/e) OBJECTIVE DATA Vital Signs: Vital Signs - 24 hr Temp Pulse Resp BP BP Pulse Ox 10/01/18 07:50 98.0 F 71 18 141/84 96 09/30/18 22:14 80 143/63 09/30/18 20:00 98.3 F 80 18 143/63 90 L 09/30/18 14:55 98.3 F 67 17 127/71 94 L 09/30/18 12:13 66 141/66 09/30/18 12:00 98.2 F 66 18 141/66 96 Pain Assessment - Last Documented Pain Intensity 2 Pain Scale Used [facility] Intake and Output: Intake & Output 09/29/18 09/30/18 10/01/18 10/02/18 06:59 06:59 06:59 06:59 Intake Total 400 780 480 Balance 400 780 480 Lab Results: Accuchecks Date 09/30/18 Date 09/30/18 Time 16:30 Time 07:30 Accucheck Value: 206 Accucheck Value: 310 Accucheck Value: 246 Multi-Disciplinary Progress Notes: Multi-Disciplinary Progress Notes 09/30/18 10:00 (created 09/30/18 16:24) Case Management Note by Alba Murdock VOICEMAIL MESSAGE LEFT FOR BENITO @ [facility] Initialized on 09/30/18 16:24 - END OF NOTE Assessment/Plan (1) Dementia Current Visit: Yes Status: Acute Qualifiers: Dementia type: unspecified type Dementia behavioral disturbance: with behavioral disturbance Qualified Code(s): F03.91 - Unspecified dementia with behavioral disturbance Assessment & Plan: Continue aricept. Once guardianship is in place through [facility] system, we have a facility willing to accept her. She continues to need 24 hour monitoring. Code(s): F03.90 - UNSPECIFIED DEMENTIA WITHOUT BEHAVIORAL DISTURBANCE (2) Hypertension Current Visit: Yes Status: Chronic Qualifiers: Hypertension type: essential hypertension Qualified Code(s): I10 - Essential (primary) hypertension Assessment & Plan: Continue current medications. Code(s): I10 - ESSENTIAL (PRIMARY) HYPERTENSION (3) Type 2 diabetes mellitus with hyperglycemia Current Visit: No Status: Acute Qualifiers: Diabetes mellitus exterminator termite insulin use: with intermediate use Qualified Code( s): E11.65 - Type 2 diabetes mellitus with hyperglycemia; Z79.4 - long term care social worker ( current) use of insulin Assessment & Plan: Will increase lantus from 30 units to 36 units and continue current dose of glipizide. Continue sliding scale if needed. Code(s): E11.65 - TYPE 2 DIABETES MELLITUS WITH HYPERGLYCEMIA (4) Hypothyroidism Current Visit: No Status: Acute Assessment & Plan: Continue levothyroxine. Code(s): E03.9 - HYPOTHYROIDISM, UNSPECIFIED (5) Poor social situation Current Visit: Yes Status: Chronic Assessment & Plan: APS involved. transit planner noted that she tried to call them yesterday afternoon and left voicemail. Code(s): Z65.9 - PROBLEM RELATED TO UNSPECIFIED PSYCHOSOCIAL CIRCUMSTANCES
[2018-10-01] MEDS: SYNTHROID 150 MCG PO SCH (10:43)
[2018-10-01] MEDS: TENORMIN 50 MG PO SCH ×2 (10:43→20:28)
[2018-10-01] MEDS: Cozaar 50 MG PO SCH (10:43)
[2018-10-01] MEDS: Lantus Insulin SQ SCH (10:44)
[2018-10-01] MEDS: MIDAMOR PO SCH ×2 (10:44→17:41)
[2018-10-01] MEDS: Klor Con 10 MEQ PO SCH (10:44)
[2018-10-01] MEDS: xanAX 0.5 MG PO SCH ×2 (10:44→20:27)
[2018-10-01] MEDS: NovoLOG Insulin SQ PRN ×2 (12:05→22:18)
[2018-10-01] MEDS: Aricept 10 MG PO SCH (20:27)
[2018-10-01] MEDS: TYLENOL 325 MG PO PRN (20:27)
[2018-10-01] MEDS: ZOCOR 20MG PO SCH (21:51)
--- NOTE | 2018-10-02 08:32 | PCM.NOTE ---
Date and Time: 10/02/18821 Subjective Assessment: Patient denies pain. She does not want to talk to me this morning. She is standing at the nurses station. She says the only thing that is bothering her is standing right in front of her and says I don't care, I don't work for you guys. - Review of Systems All Other Systems: Unable due to dementia Objective Exam General Appearance: no apparent distress, alert, other (Patient declines any further physical exam.) Neurologic Exam: alert, other (easily agitated), No cooperative Skin Exam: normal color OBJECTIVE DATA Vital Signs: Vital Signs - 24 hr Temp Pulse Resp BP BP Pulse Ox 10/02/18 07:35 97.8 F 84 20 136/80 95 10/01/18 20:28 77 145/60 10/01/18 19:53 98.9 F 77 18 145/60 97 10/01/18 16:00 98.1 F 81 18 144/65 97 10/01/18 12:00 98.3 F 71 18 132/60 98 10/01/18 10:43 72 148/76 Pain Assessment - Last Documented Pain Intensity 2 Pain Scale Used [facility] Intake and Output: Intake & Output 09/30/18 10/01/18 10/02/18 10/03/18 06:59 06:59 06:59 06:59 Intake Total 588 788 4302 Balance 748 627 8916 Lab Results: Accuchecks Date 10/01/18 Date 10/01/18 Time 16:30 Time 11:30 Accucheck Value: 361 Accucheck Value: 199 Accucheck Value: 269 Assessment/Plan (1) Dementia Current Visit: Yes Status: Acute Qualifiers: Dementia type: unspecified type Dementia behavioral disturbance: with behavioral disturbance Qualified Code(s): F03.91 - Unspecified dementia with behavioral disturbance Assessment & Plan: Continue aricept 5 mg. Will plan to increase to 10 mg after she has been on the 5 mg for 4 weeks. Code(s): F03.90 - UNSPECIFIED DEMENTIA WITHOUT BEHAVIORAL DISTURBANCE (2) Hypertension Current Visit: Yes Status: Chronic Qualifiers: Hypertension type: essential hypertension Qualified Code(s): I10 - Essential (primary) hypertension Assessment & Plan: Continue current medication. Code(s): I10 - ESSENTIAL (PRIMARY) HYPERTENSION (3) Type 2 diabetes mellitus with hyperglycemia Current Visit: No Status: Acute Qualifiers: Diabetes mellitus terminal clerk insulin use: with terminal clerk use Qualified Code( s): E11.65 - Type 2 diabetes mellitus with hyperglycemia; Z79.4 - residential ( current) use of insulin Assessment & Plan: Lantus increased yesterday. Continue glipizide bid. Continue sliding scale as needed. Will add Januvia. Code(s): E11.65 - TYPE 2 DIABETES MELLITUS WITH HYPERGLYCEMIA (4) Hypothyroidism Current Visit: No Status: Acute Assessment & Plan: Continue levothyroxine. Code(s): E03.9 - HYPOTHYROIDISM, UNSPECIFIED (5) Poor social situation Current Visit: Yes Status: Chronic Assessment & Plan: APS involved and request for Emergency Guardianship has been placed by [facility] to the [facility]. Code(s): Z65.9 - PROBLEM RELATED TO UNSPECIFIED PSYCHOSOCIAL CIRCUMSTANCES
[2018-10-02] MEDS: Glucotrol 5 MG PO SCH ×3 (08:44→17:44)
[2018-10-02] MEDS: TENORMIN 50 MG PO SCH ×2 (09:08→22:35)
[2018-10-02] MEDS: SYNTHROID 150 MCG PO SCH (09:09)
[2018-10-02] MEDS: Cozaar 50 MG PO SCH (09:09)
[2018-10-02] MEDS: Klor Con 10 MEQ PO SCH (09:09)
[2018-10-02] MEDS: xanAX 0.5 MG PO SCH ×2 (09:09→22:38)
[2018-10-02] MEDS: MIDAMOR PO SCH ×2 (09:10→17:46)
[2018-10-02] MEDS: Januvia 50 MG PO SCH (09:10)
[2018-10-02] MEDS: Lantus Insulin SQ SCH (12:31)
[2018-10-02] MEDS: TYLENOL 325 MG PO PRN (18:39)
[2018-10-02] MEDS: Aricept 10 MG PO SCH (22:37)
[2018-10-02] MEDS: ZOCOR 20MG PO SCH (22:38)
[2018-10-03] MEDS: Glucotrol 5 MG PO SCH ×2 (08:06→17:36)
--- NOTE | 2018-10-03 08:32 | PCM.NOTE ---
Date and Time: 10/03/18828 Subjective Assessment: Nurses notes from yesterday note that patient was more agitated yesterday and refused a lot of medications and all her accu checks. She seems more pleasant this AM for me. She is talking about doctors helping a cow have a calf today. She denies any pain. She reports her nose is a little runny. Objective Exam General Appearance: no apparent distress, alert Neurologic Exam: alert, other (thoughts are tangential) Skin Exam: normal color OBJECTIVE DATA Vital Signs: Vital Signs - 24 hr Temp Pulse Resp BP BP Pulse Ox 10/02/18 22:51 97.6 F 75 14 143/63 96 10/02/18 12:16 20 10/02/18 09:08 84 134/80 Pain Assessment - Last Documented Pain Intensity 0 Pain Scale Used 0-10 Pain Scale,FLACC Intake and Output: Intake & Output 10/01/18 10/02/18 10/03/18 10/04/18 06:59 06:59 06:59 06:59 Intake Total 480 1460 440 Balance 480 1460 440 Lab Results: Accuchecks Date 10/02/18 Date 10/02/18 Time 16:30 Time 11:30 Multi-Disciplinary Progress Notes: Multi-Disciplinary Progress Notes 10/02/18 13:24 Nutrition Note by Yuly Pablo F/u Note: Note 1800 ADA diet con't with 75% po intake. glu 163, alb 3.2--no recent wt/ labs. Recommend to con't with diet order. Both goals remain. Will monitor and f /u prn. L.MARINA Pablo Initialized on 10/02/18 13:24 - END OF NOTE 10/02/18 11:32 Case Management Note by Alba Murdock VOICEMAIL MESSAGE FROM ALVIN GANEY, STATING THAT SHE IS HOPING TO HAVE SOME NEWS TODAY. REPORTS THAT SHE WILL GET IT OVER TO BENITO AT [facility], [facility], ONCE COMPLETE. Initialized on 10/02/18 11:32 - END OF NOTE 10/02/18 11:23 Case Management Note by Alba Murdock SPOKE WITH BENITO, FROM [facility], REPORTS THAT SHE HAS 2 CALLS IN TO ATTORNEY MALIK. REPORTS THAT SHE WILL CALL US BACK SOON SHE KNOWS SOMETHING. DISCUSSED THAT IT HAS BEEN 19 DAYS AND THIS IS SUPPOSED TO BE AN EMERGENCY APPOINTMENT. BENITO REPORTS THAT SOON SHE HEARS ANYTHING AT ALL SHE WILL CALL AND LET US KNOW. Initialized on 10/02/18 11:23 - END OF NOTE 10/02/18 11:22 Case Management Note by Alba Murdock CALL TO [facility] [employer] TO CHECK ON STATUS OF COURT APPOINTED GUARDIANSHIP. SPOKE WITH SHASHA, REPORTS THAT SHE WILL HAVE TICO CALL WHEN SHE IS BACK IN OFFICE LATER TODAY. Initialized on 10/02/18 11:22 - END OF NOTE Assessment/Plan (1) Dementia Current Visit: Yes Status: Acute Qualifiers: Dementia type: unspecified type Dementia behavioral disturbance: with behavioral disturbance Qualified Code(s): F03.91 - Unspecified dementia with behavioral disturbance Assessment & Plan: Continue aricept. Will plan to increase to 10 mg after she has been on aricept for 4 weeks. Awaiting guardianship plans and APS is involved. She needs 24 hour care and at this time does not have someone who can help make decisions for her both medically and financially. Code(s): F03.90 - UNSPECIFIED DEMENTIA WITHOUT BEHAVIORAL DISTURBANCE (2) Hypertension Current Visit: Yes Status: Chronic Qualifiers: Hypertension type: essential hypertension Qualified Code(s): I10 - Essential (primary) hypertension Assessment & Plan: Continue current medications. Code(s): I10 - ESSENTIAL (PRIMARY) HYPERTENSION (3) Type 2 diabetes mellitus with hyperglycemia Current Visit: No Status: Acute Qualifiers: Diabetes mellitus printing services coordinator insulin use: with printing services coordinator use Qualified Code( s): E11.65 - Type 2 diabetes mellitus with hyperglycemia; Z79.4 - assisted ( current) use of insulin Assessment & Plan: She refused accu checks yesterday so I will not adjust anything today. I started Januvia yesterday but she refused her lantus and glipizide. Code(s): E11.65 - TYPE 2 DIABETES MELLITUS WITH HYPERGLYCEMIA (4) Hypothyroidism Current Visit: No Status: Acute Assessment & Plan: Continue levothyroxine. Code(s): E03.9 - HYPOTHYROIDISM, UNSPECIFIED (5) Poor social situation Current Visit: Yes Status: Chronic Assessment & Plan: She has not family involved. APS is involved. Patient does not have a safe disposition at this time. We do have an accepting facility if guardianship is granted. Code(s): Z65.9 - PROBLEM RELATED TO UNSPECIFIED PSYCHOSOCIAL CIRCUMSTANCES
[2018-10-03] MEDS: Cozaar 50 MG PO SCH (09:30)
[2018-10-03] MEDS: Januvia 50 MG PO SCH (09:30)
[2018-10-03] MEDS: Klor Con 10 MEQ PO SCH (09:31)
[2018-10-03] MEDS: Lantus Insulin SQ SCH (09:32)
[2018-10-03] MEDS: TENORMIN 50 MG PO SCH ×2 (09:32→21:35)
[2018-10-03] MEDS: SYNTHROID 150 MCG PO SCH (09:39)
[2018-10-03] MEDS: MIDAMOR PO SCH ×2 (09:40→17:36)
[2018-10-03] MEDS: xanAX 0.5 MG PO SCH ×2 (09:41→21:35)
[2018-10-03] MEDS: NovoLOG Insulin SQ PRN ×2 (12:11→17:38)
[2018-10-03] MEDS: Aricept 10 MG PO SCH (21:34)
[2018-10-03] MEDS: ZOCOR 20MG PO SCH (21:35)
[2018-10-04] MEDS: xanAX 0.5 MG PO SCH ×2 (07:59→22:53)
[2018-10-04] MEDS: NovoLOG Insulin SQ PRN ×3 (07:59→16:39)
[2018-10-04] MEDS: Glucotrol 5 MG PO SCH ×2 (07:59→16:39)
[2018-10-04] MEDS: TENORMIN 50 MG PO SCH ×2 (07:59→22:53)
[2018-10-04] MEDS: SYNTHROID 150 MCG PO SCH (08:00)
[2018-10-04] MEDS: Lantus Insulin SQ SCH (08:00)
[2018-10-04] MEDS: Januvia 50 MG PO SCH (08:00)
[2018-10-04] MEDS: Cozaar 50 MG PO SCH (08:00)
[2018-10-04] MEDS: Klor Con 10 MEQ PO SCH (08:00)
[2018-10-04] MEDS: MIDAMOR PO SCH ×2 (08:01→16:40)
--- NOTE | 2018-10-04 08:15 | PCM.NOTE ---
Date and Time: 10/04/18812 Subjective Assessment: Patient reports her nose is running. She states she doesn't need me to stand around and tell her what is wrong. She is up at the nurses station. Nurses notes from yesterday state she refused vitals at one point. She did take her medications this AM. - Review of Systems All Other Systems: Unable due to dementia Objective Exam General Appearance: no apparent distress, other (walking; at nurses station) Neurologic Exam: alert, other (easily frustrated), No cooperative OBJECTIVE DATA Vital Signs: Vital Signs - 24 hr Temp Pulse Resp BP BP Pulse Ox 10/04/18 07:59 73 139/61 10/04/18 07:44 97.8 F 73 16 139/61 97 10/04/18 05:48 98.1 F 92 H 16 93 L 10/03/18 20:00 98.8 F 75 18 97 10/03/18 16:00 98.6 F 81 17 135/61 95 10/03/18 09:32 72 165/102 Pain Assessment - Last Documented Pain Intensity 0 Pain Scale Used Telma Faces,FLACC Intake and Output: Intake & Output 10/02/18 10/03/18 10/04/18 10/05/18 06:59 06:59 06:59 06:59 Intake Total 1460 440 Balance 1460 440 Lab Results: Accuchecks Date 10/04/18 Date 10/03/18 Date 10/03/18 Time 07:30 Time 16:30 Time 11:30 Accucheck Value: 229 Accucheck Value: 232 Accucheck Value: 257 Multi-Disciplinary Progress Notes: Multi-Disciplinary Progress Notes 10/03/18 11:14 Case Management Note by Alba Murdock RECEIVED PHONE CALL FROM APS, BENITO SUH. REPORTS THAT PAPERWORK FOR GUARDIANSHIP HAS BEEN FILED IN THE COURT, AND SHOULD BE SIGNED AND COMPLETED BY JUDGE ABARCA THIS AFTERNOON. APS WILL CALL BACK WHEN COMPLETE. Initialized on 10/03/18 11:14 - END OF NOTE Assessment/Plan (1) Dementia Current Visit: Yes Status: Acute Qualifiers: Dementia type: unspecified type Dementia behavioral disturbance: with behavioral disturbance Qualified Code(s): F03.91 - Unspecified dementia with behavioral disturbance Assessment & Plan: Continue aricept 5 mg; plan to increase to 10 mg after she has been on this dose for 4 weeks. She started this September 16. APS involved as patient needs 24 hour care and family is not involved. Awaiting guardianship decision from [facility] judge. Patient has continued to stay here for her safety as no disposition for her without someone to direct her financial and health care decisions. She does not have a payer source for retirement placement without a guardian to work through these details. Code(s): F03.90 - UNSPECIFIED DEMENTIA WITHOUT BEHAVIORAL DISTURBANCE (2) Hypertension Current Visit: Yes Status: Chronic Qualifiers: Hypertension type: essential hypertension Qualified Code(s): I10 - Essential (primary) hypertension Assessment & Plan: Fairly well controlled. Continue current medication. Code(s): I10 - ESSENTIAL (PRIMARY) HYPERTENSION (3) Type 2 diabetes mellitus with hyperglycemia Current Visit: No Status: Acute Qualifiers: Diabetes mellitus state editor insulin use: with state editor use Qualified Code( s): E11.65 - Type 2 diabetes mellitus with hyperglycemia; Z79.4 - assisted ( current) use of insulin Assessment & Plan: Continue current treatment. She seems to be doing better with one a day insulin and oral medications as she was refusing all insulin administration when it was ordered 4 x a day. Code(s): E11.65 - TYPE 2 DIABETES MELLITUS WITH HYPERGLYCEMIA (4) Hypothyroidism Current Visit: No Status: Acute Assessment & Plan: Continue synthroid. Code(s): E03.9 - HYPOTHYROIDISM, UNSPECIFIED (5) Poor social situation Current Visit: Yes Status: Chronic Assessment & Plan: Again, APS is involved. Her family is not involved. Code(s): Z65.9 - PROBLEM RELATED TO UNSPECIFIED PSYCHOSOCIAL CIRCUMSTANCES
--- NOTE | 2018-10-04 17:39 | PCM.NOTE ---
Date and Time: 09/28/18 1738 - Review of Systems Constitutional: No Symptoms, Other (good appetite) Respiratory: No Symptoms Cardiac: No Symptoms Abdominal/Gastrointestinal: No Symptoms Musculoskeletal: No Symptoms (up walking with nurse) Objective Exam Neurologic Exam: alert (not oriented but cooperative,politely says she doesn't need anything. Is looking at a magazine.) Respiratory Exam: lungs clear Cardiovascular Exam: regular rate/rhythm OBJECTIVE DATA Vital Signs: Vital Signs - 24 hr Temp Pulse Resp BP BP Pulse Ox 10/04/18 16:00 98.7 F 71 18 130/94 97 10/04/18 07:59 73 139/61 10/04/18 07:44 97.8 F 73 16 139/61 97 10/04/18 05:48 98.1 F 92 H 16 93 L 10/03/18 20:00 98.8 F 75 18 97 Pain Assessment - Last Documented Pain Intensity 0 Pain Scale Used Telma Faces,FLACC Intake and Output: Intake & Output 10/02/18 10/03/18 10/04/18 10/05/18 11:59 11:59 11:59 11:59 Intake Total 880 440 840 Balance 880 440 840 Lab Results: Accuchecks Date 10/04/18 Date 10/04/18 Date 10/04/18 Time 16:30 Time 11:30 Time 07:30 Accucheck Value: 214 Accucheck Value: 224 Accucheck Value: 229 Assessment/Plan (1) Dementia Current Visit: Yes Status: Acute Qualifiers: Dementia type: unspecified type Dementia behavioral disturbance: with behavioral disturbance Qualified Code(s): F03.91 - Unspecified dementia with behavioral disturbance Assessment & Plan: patient is awaiting court order for placement to appropriate LTF Code(s): F03.90 - UNSPECIFIED DEMENTIA WITHOUT BEHAVIORAL DISTURBANCE
[2018-10-04] MEDS: Aricept 10 MG PO SCH (22:53)
[2018-10-04] MEDS: ZOCOR 20MG PO SCH (22:53)
[2018-10-05] MEDS: Glucotrol 5 MG PO SCH ×2 (08:23→16:52)
[2018-10-05] MEDS: Cozaar 50 MG PO SCH (09:48)
[2018-10-05] MEDS: Klor Con 10 MEQ PO SCH (09:49)
[2018-10-05] MEDS: TENORMIN 50 MG PO SCH ×2 (09:49→21:35)
[2018-10-05] MEDS: SYNTHROID 150 MCG PO SCH (09:49)
[2018-10-05] MEDS: Januvia 50 MG PO SCH (09:49)
[2018-10-05] MEDS: Lantus Insulin SQ SCH (09:50)
[2018-10-05] MEDS: MIDAMOR PO SCH ×2 (09:50→16:52)
[2018-10-05] MEDS: xanAX 0.5 MG PO SCH ×2 (09:50→21:35)
--- NOTE | 2018-10-05 09:59 | PCM.NOTE ---
Date and Time: 10/05/18 0957 Subjective Assessment: patient is at nurses station this morning. she denies any problems or concerns. she is pleasantly confused Objective Exam General Appearance: no apparent distress Neurologic Exam: alert, cooperative, No oriented x 3 Skin Exam: normal color, warm, dry Extremity Exam: normal inspection OBJECTIVE DATA Vital Signs: Vital Signs - 24 hr Temp Pulse Resp BP BP Pulse Ox 10/05/18 09:49 76 10/05/18 07:18 97.8 F 70 20 140/68 96 10/04/18 22:53 71 171/72 10/04/18 20:00 97.8 F 71 18 171/72 95 10/04/18 16:00 98.7 F 71 18 130/94 97 Pain Assessment - Last Documented Pain Intensity 0 Pain Scale Used Telma Tomlin,FLACC Intake and Output: Intake & Output 10/02/18 10/03/18 10/04/18 10/05/18 11:59 11:59 11:59 11:59 Intake Total 880 440 990 Balance 880 440 990 Lab Results: Accuchecks Date 10/04/18 Date 10/04/18 Time 16:30 Time 11:30 Accucheck Value: 117 Accucheck Value: 144 Accucheck Value: 214 Accucheck Value: 224 Assessment/Plan (1) Dementia Current Visit: Yes Status: Acute Qualifiers: Dementia type: unspecified type Dementia behavioral disturbance: with behavioral disturbance Qualified Code(s): F03.91 - Unspecified dementia with behavioral disturbance Assessment & Plan: awaiting LTCF placement when guardianship established with court system Code(s): F03.90 - UNSPECIFIED DEMENTIA WITHOUT BEHAVIORAL DISTURBANCE (2) Poor social situation Current Visit: Yes Status: Chronic Code(s): Z65.9 - PROBLEM RELATED TO UNSPECIFIED PSYCHOSOCIAL CIRCUMSTANCES (3) Hypertension Current Visit: Yes Status: Chronic Qualifiers: Hypertension type: essential hypertension Qualified Code(s): I10 - Essential (primary) hypertension Code(s): I10 - ESSENTIAL (PRIMARY) HYPERTENSION (4) Hypothyroidism Current Visit: No Status: Acute Code(s): E03.9 - HYPOTHYROIDISM, UNSPECIFIED (5) Type 2 diabetes mellitus with hyperglycemia Current Visit: No Status: Acute Qualifiers: Diabetes mellitus exterminator helper insulin use: with exterminator helper use Qualified Code( s): E11.65 - Type 2 diabetes mellitus with hyperglycemia; Z79.4 - oysterman ( current) use of insulin Code(s): E11.65 - TYPE 2 DIABETES MELLITUS WITH HYPERGLYCEMIA
[2018-10-05] MEDS: TYLENOL 325 MG PO PRN (10:20)
[2018-10-05] MEDS: NovoLOG Insulin SQ PRN (11:48)
[2018-10-05] MEDS: ZOCOR 20MG PO SCH (21:35)
[2018-10-05] MEDS: Aricept 10 MG PO SCH (21:36)
[2018-10-06] MEDS: Glucotrol 5 MG PO SCH ×2 (07:31→16:46)
[2018-10-06] MEDS: TENORMIN 50 MG PO SCH ×2 (07:31→21:46)
[2018-10-06] MEDS: SYNTHROID 150 MCG PO SCH (07:31)
[2018-10-06] MEDS: Januvia 50 MG PO SCH (07:31)
[2018-10-06] MEDS: Klor Con 10 MEQ PO SCH (07:32)
[2018-10-06] MEDS: xanAX 0.5 MG PO SCH ×2 (07:32→21:46)
[2018-10-06] MEDS: Lantus Insulin SQ SCH (07:32)
[2018-10-06] MEDS: MIDAMOR PO SCH ×2 (07:33→16:46)
[2018-10-06] MEDS: Cozaar 50 MG PO SCH (07:34)
--- NOTE | 2018-10-06 09:00 | PCM.NOTE ---
Date and Time: 10/06/18 0859 Subjective Assessment: no change today, patient is pleasant. eating her breakfast in her room. no apparent distress Objective Exam General Appearance: no apparent distress Neurologic Exam: alert Skin Exam: normal color, warm, ecchymosis OBJECTIVE DATA Vital Signs: Vital Signs - 24 hr Temp Pulse Resp BP BP Pulse Ox 10/06/18 07:31 97.6 F 76 20 136/80 136/80 96 10/05/18 21:35 79 149/78 10/05/18 20:10 97.9 F 79 20 149/78 95 10/05/18 16:24 20 10/05/18 12:06 20 10/05/18 09:49 76 Pain Assessment - Last Documented Pain Intensity 0 Pain Scale Used FLACC Intake and Output: Intake & Output 10/03/18 10/04/18 10/05/18 10/06/18 11:59 11:59 11:59 11:59 Intake Total 589 937 3741 Balance 778 924 0823 Lab Results: Accuchecks Date 10/06/18 Date 10/05/18 Time 07:30 Time 21:00 Accucheck Value: 144 Accucheck Value: 137 Accucheck Value: 137 Accucheck Value: 277 Multi-Disciplinary Progress Notes: Multi-Disciplinary Progress Notes 10/05/18 16:13 Case Management Note by Stephanie Vila CASE MANAGEMENT RECIEVED PAPERWORK FROM ASSISTANT SCIENTIST FOR [facility], STATE GUARDIANSHIP HAS BEEN APPROVED BY A CHILDREN'S SERVICE SUPERVISOR AND PAPERWORK HAS BEEN SENT TO THIS HOSPITAL, AT THIS TIME WAITING ON THE APPOINTED GUARDIAN TO ACCEPT THE PATIENT. JOSE L Mendoza WILL CHECK W BENITO ZIMMERMAN, AGAIN ON Sunday10/07/2018. Initialized on 10/05/18 16:13 - END OF NOTE Assessment/Plan (1) Dementia Current Visit: Yes Status: Acute Qualifiers: Dementia type: unspecified type Dementia behavioral disturbance: with behavioral disturbance Qualified Code(s): F03.91 - Unspecified dementia with behavioral disturbance Assessment & Plan: no changes at this time, awaiting APS/court appointed guardianship for placement. Code(s): F03.90 - UNSPECIFIED DEMENTIA WITHOUT BEHAVIORAL DISTURBANCE (2) Poor social situation Current Visit: Yes Status: Chronic Code(s): Z65.9 - PROBLEM RELATED TO UNSPECIFIED PSYCHOSOCIAL CIRCUMSTANCES (3) Hypertension Current Visit: Yes Status: Chronic Qualifiers: Hypertension type: essential hypertension Qualified Code(s): I10 - Essential (primary) hypertension Code(s): I10 - ESSENTIAL (PRIMARY) HYPERTENSION (4) Hypothyroidism Current Visit: No Status: Acute Code(s): E03.9 - HYPOTHYROIDISM, UNSPECIFIED (5) Type 2 diabetes mellitus with hyperglycemia Current Visit: No Status: Acute Qualifiers: Diabetes mellitus watermelon harvesting supervisor insulin use: with correction use Qualified Code( s): E11.65 - Type 2 diabetes mellitus with hyperglycemia; Z79.4 - jail ( current) use of insulin Code(s): E11.65 - TYPE 2 DIABETES MELLITUS WITH HYPERGLYCEMIA
[2018-10-06] MEDS: Aricept 10 MG PO SCH (21:46)
[2018-10-06] MEDS: ZOCOR 20MG PO SCH (21:46)
[2018-10-07] MEDS: Glucotrol 5 MG PO SCH ×2 (08:29→17:38)
--- NOTE | 2018-10-07 08:55 | PCM.NOTE ---
Date and Time: 10/07/18 0850 Subjective Assessment: Patient denies pain. States she has a little frog in her throat. She is cooperative with me listening to her heart and lungs. - Review of Systems All Other Systems: Unable due to dementia Objective Exam General Appearance: no apparent distress, alert Neurologic Exam: alert, cooperative, normal mood/affect, other (Knows her first and last name; When asked what year it is, looks at newspaper that was just brought but doesn't give year; when asked where she is at, she again looks at newspaper and says "[employer]" and "[place]" ([place] is mentioned in the headline). Also picture of high schoolers at [facility] and she says it has been a long time since she has been to a [facility].) Skin Exam: normal color, warm, No dry, No rash Respiratory Exam: normal breath sounds, lungs clear, No crackles/rales, No rhonchi, No wheezing Cardiovascular Exam: regular rate/rhythm, normal heart sounds, No murmur, No friction rub, No gallop Gastrointestinal/Abdomen Exam: soft, normal bowel sounds, No tenderness, No distention, No mass OBJECTIVE DATA Vital Signs: Vital Signs - 24 hr Temp Pulse Resp BP BP Pulse Ox 10/07/18 07:48 98.0 F 70 18 141/57 95 10/06/18 22:00 97.9 F 69 18 155/64 95 10/06/18 21:46 69 155/64 10/06/18 20:00 20 10/06/18 12:31 20 Pain Assessment - Last Documented Pain Intensity 0 Pain Scale Used [facility] Intake and Output: Intake & Output 10/05/18 10/06/18 10/07/18 10/08/18 06:59 06:59 06:59 06:59 Intake Total 990 1180 640 Balance 990 1180 640 Lab Results: Accuchecks Date 10/07/18 Date 10/06/18 Date 10/06/18 Time 07:30 Time 22:01 Time 11:30 Accucheck Value: 117 Accucheck Value: 119 Assessment/Plan (1) Dementia Current Visit: Yes Status: Acute Qualifiers: Dementia type: unspecified type Dementia behavioral disturbance: with behavioral disturbance Qualified Code(s): F03.91 - Unspecified dementia with behavioral disturbance Assessment & Plan: Continue aricept; awaiting disposition per technical planner. Notes states that court did agree that she needed a guardian and now awaiting acceptance from appointed guardian. She will need 24 hour 7 day per week care for her safety. Code(s): F03.90 - UNSPECIFIED DEMENTIA WITHOUT BEHAVIORAL DISTURBANCE (2) Hypertension Current Visit: Yes Status: Chronic Qualifiers: Hypertension type: essential hypertension Qualified Code(s): I10 - Essential (primary) hypertension Assessment & Plan: Fairly well controlled. Continue current medications. Code(s): I10 - ESSENTIAL (PRIMARY) HYPERTENSION (3) Type 2 diabetes mellitus with hyperglycemia Current Visit: No Status: Acute Qualifiers: Diabetes mellitus petroleum terminal plant operator insulin use: with prison use Qualified Code( s): E11.65 - Type 2 diabetes mellitus with hyperglycemia; Z79.4 - jail ( current) use of insulin Assessment & Plan: Blood glucoses much better controlled. Code(s): E11.65 - TYPE 2 DIABETES MELLITUS WITH HYPERGLYCEMIA (4) Hypothyroidism Current Visit: No Status: Acute Assessment & Plan: Continue levothyroxine. Code(s): E03.9 - HYPOTHYROIDISM, UNSPECIFIED (5) Poor social situation Current Visit: Yes Status: Chronic Code(s): Z65.9 - PROBLEM RELATED TO UNSPECIFIED PSYCHOSOCIAL CIRCUMSTANCES
[2018-10-07] MEDS: Cozaar 50 MG PO SCH (09:47)
[2018-10-07] MEDS: TENORMIN 50 MG PO SCH ×2 (09:47→20:40)
[2018-10-07] MEDS: SYNTHROID 150 MCG PO SCH (09:47)
[2018-10-07] MEDS: MIDAMOR PO SCH ×2 (09:47→17:38)
[2018-10-07] MEDS: Klor Con 10 MEQ PO SCH (09:47)
[2018-10-07] MEDS: Januvia 50 MG PO SCH (09:48)
[2018-10-07] MEDS: Lantus Insulin SQ SCH (09:48)
[2018-10-07] MEDS: xanAX 0.5 MG PO SCH ×2 (09:48→20:41)
[2018-10-07] MEDS: NovoLOG Insulin SQ PRN (11:34)
[2018-10-07] MEDS: Aricept 10 MG PO SCH (20:39)
[2018-10-07] MEDS: ZOCOR 20MG PO SCH (20:41)
--- NOTE | 2018-10-08 08:38 | PCM.NOTE ---
Date and Time: 10/08/18 0834 Subjective Assessment: She denies any pain or problems. She talks about what is on her TV. - Review of Systems All Other Systems: Unable due to dementia Objective Exam General Appearance: no apparent distress, alert, obese Neurologic Exam: alert Skin Exam: normal color, warm, dry OBJECTIVE DATA Vital Signs: Vital Signs - 24 hr Temp Pulse Resp BP BP Pulse Ox 10/08/18 08:00 98.2 F 68 18 171/71 100 10/07/18 20:40 75 160/70 10/07/18 20:00 97.7 F 75 20 160/70 98 10/07/18 16:00 98.3 F 82 18 172/72 95 10/07/18 11:48 98.1 F 68 18 138/60 96 10/07/18 09:47 70 141/57 Pain Assessment - Last Documented Pain Intensity 0 Pain Scale Used 0-10 Pain Scale Intake and Output: Intake & Output 10/06/18 10/07/18 10/08/18 10/09/18 06:59 06:59 06:59 06:59 Intake Total 1180 640 760 Balance 1180 640 760 Lab Results: Accuchecks Date 10/08/18 Date 10/07/18 Date 10/07/18 Date 10/07/18 Time 07:56 Time 22:00 Time 16:30 Time 11:30 Accucheck Value: 116 Accucheck Value: 187 Accucheck Value: 233 Accucheck Value: 216 Multi-Disciplinary Progress Notes: Multi-Disciplinary Progress Notes 10/07/18 15:53 Case Management Note by Katherin Jaime TEMPORARY GUARDIAN PAPERWORK RECEIVED AND ON THE CHART. S/W BENITO SUH AT [facility] (PH # [phone]). NOW THAT A GUARDIAN HAS BEEN APPOINTED, SHE WILL NO LONGER BE INVOLVED IN THE CASE. WE ARE TO CONTACT THE GUARDIAN ( NYASIA BUSTILLO) W/ QUESTIONS OR CONCERNS. NO PH # WAS AVAILABLE FOR Vasiliy BUSTILLO ON THE GUARDIANSHIP PAPERWORK. LEFT MESSAGE W/ DIRECTOR FOUNDATION TICO FRANCISCO (PH #: ) TO SEE IF SHE HAD A PH #. AWAITING CALL BACK AT THIS TIME. Initialized on 10/07/18 15:53 - END OF NOTE 10/07/18 12:11 Nutrition Note by Chrissie Candelaria F/u Note: 1800 ADA diet con't with 75-100% po intake. No recent weight/labs available. Will con't to monitor and f/u prn. T.MARINA Candelaria Initialized on 10/07/18 12:11 - END OF NOTE Assessment/Plan (1) Dementia Current Visit: Yes Status: Acute Qualifiers: Dementia type: unspecified type Dementia behavioral disturbance: with behavioral disturbance Qualified Code(s): F03.91 - Unspecified dementia with behavioral disturbance Assessment & Plan: Continue aricept. APS has told process planner that they are not involved now that a guardian has been appointed. office workforce planner trying to obtain contact information for the guardian that was appointed. Code(s): F03.90 - UNSPECIFIED DEMENTIA WITHOUT BEHAVIORAL DISTURBANCE (2) Hypertension Current Visit: Yes Status: Chronic Qualifiers: Hypertension type: essential hypertension Qualified Code(s): I10 - Essential (primary) hypertension Assessment & Plan: Her blood pressure is a little bit higher today. She did refuse midomir dose last night. Code(s): I10 - ESSENTIAL (PRIMARY) HYPERTENSION (3) Type 2 diabetes mellitus with hyperglycemia Current Visit: No Status: Acute Qualifiers: Diabetes mellitus regional intermodal truck driver insulin use: with mcc use Qualified Code( s): E11.65 - Type 2 diabetes mellitus with hyperglycemia; Z79.4 - exterminator helper termite ( current) use of insulin Assessment & Plan: Better controlled. Continue current regimen. Code(s): E11.65 - TYPE 2 DIABETES MELLITUS WITH HYPERGLYCEMIA (4) Hypothyroidism Current Visit: No Status: Acute Assessment & Plan: Continue levothyroxine. Code(s): E03.9 - HYPOTHYROIDISM, UNSPECIFIED (5) Poor social situation Current Visit: Yes Status: Chronic Code(s): Z65.9 - PROBLEM RELATED TO UNSPECIFIED PSYCHOSOCIAL CIRCUMSTANCES
[2018-10-08] MEDS: Glucotrol 5 MG PO SCH ×2 (08:41→16:54)
[2018-10-08] MEDS: SYNTHROID 150 MCG PO SCH (10:09)
[2018-10-08] MEDS: TENORMIN 50 MG PO SCH ×2 (10:09→20:59)
[2018-10-08] MEDS: xanAX 0.5 MG PO SCH ×2 (10:10→20:58)
[2018-10-08] MEDS: Klor Con 10 MEQ PO SCH (10:10)
[2018-10-08] MEDS: MIDAMOR PO SCH ×2 (10:10→16:54)
[2018-10-08] MEDS: Lantus Insulin SQ SCH (10:10)
[2018-10-08] MEDS: Januvia 50 MG PO SCH (10:10)
[2018-10-08] MEDS: Cozaar 50 MG PO SCH (10:10)
[2018-10-08] MEDS: NovoLOG Insulin SQ PRN ×3 (11:47→21:11)
[2018-10-08] MEDS: Aricept 10 MG PO SCH (20:59)
[2018-10-08] MEDS: ZOCOR 20MG PO SCH (20:59)
[2018-10-09] MEDS: Glucotrol 5 MG PO SCH ×2 (08:17→17:29)
--- NOTE | 2018-10-09 08:59 | PCM.NOTE ---
Date and Time: 10/09/18 0856 Subjective Assessment: She says that she is not having any pain. She states she often feels cold. I asked if she would be willing to have her blood drawn to check her potassium and she never really said if she would allow this. exercise planner states that they are in contact with guardian and working on buttermaker continuous churn placement. - Review of Systems All Other Systems: Unable due to dementia Objective Exam General Appearance: no apparent distress, alert Neurologic Exam: alert, cooperative Skin Exam: normal color, warm, dry, No rash Respiratory Exam: normal breath sounds, lungs clear, No crackles/rales, No rhonchi, No wheezing Cardiovascular Exam: regular rate/rhythm, normal heart sounds, No murmur, No friction rub, No gallop Gastrointestinal/Abdomen Exam: soft, normal bowel sounds, No tenderness, No distention, No mass Extremity Exam: other (no c/c/e) OBJECTIVE DATA Vital Signs: Vital Signs - 24 hr Temp Pulse Resp BP BP Pulse Ox 10/09/18 07:49 98.3 F 69 18 172/76 99 10/08/18 20:59 80 149/76 10/08/18 20:00 97.6 F 82 18 149/76 96 10/08/18 12:00 98.1 F 73 18 134/59 95 10/08/18 10:09 76 171/71 Pain Assessment - Last Documented Pain Intensity 0 Pain Scale Used 0-10 Pain Scale Intake and Output: Intake & Output 10/07/18 10/08/18 10/09/18 10/10/18 06:59 06:59 06:59 06:59 Intake Total 660 540 6069 Balance 055 874 7272 Lab Results: Accuchecks Date 10/08/18 Date 10/08/18 Date 10/08/18 Time 22:00 Time 17:31 Time 11:48 Accucheck Value: 234 Accucheck Value: 225 Accucheck Value: 250 Multi-Disciplinary Progress Notes: Multi-Disciplinary Progress Notes 10/08/18 09:00 (created 10/08/18 16:50) Case Management Note by Katherin Jaime S/W PT'S GUARDIAN, MILVIA BUSTILLO (PH #: [phone]. FAX #: [phone]) RE: HANDLING OF PT'S FINANCES FOR NH PLACEMENT. FACE SHEET FAXED TO HER PER HER REQUEST. S/W BENITO SU[facility] RE: FAXING PT'S BANK INFO TO THE GUARDIAN. SHE STATED SHE WOULD DO IT WHEN SHE GOT TO THE OFFICE. Initialized on 10/08/18 16:50 - END OF NOTE Assessment/Plan (1) Dementia Current Visit: Yes Status: Acute Qualifiers: Dementia type: unspecified type Dementia behavioral disturbance: with behavioral disturbance Qualified Code(s): F03.91 - Unspecified dementia with behavioral disturbance Assessment & Plan: Continue aricept. Awaiting placement for her safety. She requires 24 hour care. Code(s): F03.90 - UNSPECIFIED DEMENTIA WITHOUT BEHAVIORAL DISTURBANCE (2) Hypertension Current Visit: Yes Status: Chronic Qualifiers: Hypertension type: essential hypertension Qualified Code(s): I10 - Essential (primary) hypertension Assessment & Plan: Fairly well controlled. Will try to recheck BMP today to check potassium and creatinine as I am hoping she will be discharged soon. Code(s): I10 - ESSENTIAL (PRIMARY) HYPERTENSION (3) Type 2 diabetes mellitus with hyperglycemia Current Visit: No Status: Acute Qualifiers: Diabetes mellitus buttermaker continuous churn insulin use: with buttermaker continuous churn use Qualified Code( s): E11.65 - Type 2 diabetes mellitus with hyperglycemia; Z79.4 - superintendent container terminal ( current) use of insulin Assessment & Plan: Better controlled on current regimen. She frequently declines short acting insulin for coverage. Code(s): E11.65 - TYPE 2 DIABETES MELLITUS WITH HYPERGLYCEMIA (4) Hypothyroidism Current Visit: No Status: Acute Assessment & Plan: Continue levothyroxine. Code(s): E03.9 - HYPOTHYROIDISM, UNSPECIFIED (5) Poor social situation Current Visit: Yes Status: Chronic Code(s): Z65.9 - PROBLEM RELATED TO UNSPECIFIED PSYCHOSOCIAL CIRCUMSTANCES
[2018-10-09] MEDS: SYNTHROID 150 MCG PO SCH (09:54)
[2018-10-09] MEDS: TENORMIN 50 MG PO SCH ×2 (09:54→20:11)
[2018-10-09] MEDS: Cozaar 50 MG PO SCH (09:54)
[2018-10-09] MEDS: Januvia 50 MG PO SCH (09:54)
[2018-10-09] MEDS: Klor Con 10 MEQ PO SCH (09:54)
[2018-10-09] MEDS: xanAX 0.5 MG PO SCH ×2 (09:55→20:11)
[2018-10-09] MEDS: MIDAMOR PO SCH ×2 (09:56→17:30)
[2018-10-09] MEDS: Lantus Insulin SQ SCH (09:56)
[2018-10-09 10:06] LABS: BLOOD UREA NITROGEN 12 mg/dL (7-17); CHLORIDE 101 mmol/L (98-107); Calcium 8.9 mg/dL (8.4-10.2); Carbon Dioxide 32 mmol/L (22-30); Creatinine 1 0.59 mg/dL (0.52-1.04); Glucose 253 mg/dL (74-106); Potassium 3.3 mmol/L (3.5-5.1); SODIUM 142 mmol/L (137-145)
[2018-10-09] MEDS: NovoLOG Insulin SQ PRN (12:29)
[2018-10-09] MEDS ORDERED: Klor Con 10 MEQ PO ONE (16:13)
[2018-10-09] MEDS: Aricept 10 MG PO SCH (20:10)
[2018-10-09] MEDS: ZOCOR 20MG PO SCH (20:11)
[2018-10-10] MEDS: TENORMIN 50 MG PO SCH ×2 (09:45→20:31)
[2018-10-10] MEDS: Cozaar 50 MG PO SCH (09:45)
[2018-10-10] MEDS: SYNTHROID 150 MCG PO SCH (09:50)
[2018-10-10] MEDS: Klor Con 10 MEQ PO SCH (09:50)
[2018-10-10] MEDS: MIDAMOR PO SCH ×2 (09:50→16:48)
[2018-10-10] MEDS: Januvia 50 MG PO SCH (09:51)
[2018-10-10] MEDS: Glucotrol 5 MG PO SCH ×2 (09:51→16:48)
[2018-10-10] MEDS: xanAX 0.5 MG PO SCH ×2 (09:51→20:31)
[2018-10-10] MEDS: Lantus Insulin SQ SCH (09:51)
--- NOTE | 2018-10-10 09:53 | PCM.NOTE ---
Date and Time: 10/10/18 0950 Subjective Assessment: Patient denies any pain and states she is just waking up. They can't find her glasses this Am. Discharge planning reports it will take about a week for her guardian to have information on her financial status and [facility] will not take her before this is figured out. Patient agrees she was restless last night. I reviewed the nurses note. - Review of Systems All Other Systems: Unable due to dementia (besides what is in subjective) Objective Exam General Appearance: no apparent distress, alert, other (sitting up in chair talktaive) Neurologic Exam: alert, cooperative Skin Exam: normal color, warm, dry, No rash Respiratory Exam: normal breath sounds, lungs clear, No crackles/rales, No rhonchi, No wheezing Cardiovascular Exam: regular rate/rhythm, normal heart sounds, No murmur, No friction rub, No gallop Gastrointestinal/Abdomen Exam: soft, normal bowel sounds, No tenderness, No distention, No mass Extremity Exam: other (no c/c/e) OBJECTIVE DATA Vital Signs: Vital Signs - 24 hr Temp Pulse Resp BP BP Pulse Ox 10/09/18 20:11 83 152/79 10/09/18 20:00 98.2 F 83 19 152/79 96 10/09/18 16:09 97.8 F 76 20 157/80 98 10/09/18 12:00 98.1 F 81 18 152/76 96 10/09/18 09:54 69 172/66 Pain Assessment - Last Documented Pain Intensity 0 Pain Scale Used 0-10 Pain Scale Intake and Output: Intake & Output 10/08/18 10/09/18 10/10/18 10/11/18 06:59 06:59 06:59 06:59 Intake Total 760 1080 470 Output Total 0 Balance 760 1080 470 Lab Results: Accuchecks Date 10/09/18 Time 22:00 Accucheck Value: 199 Accucheck Value: 248 Lab Results-Last 24 Hours 10/09/18 Range/Units 09:22 Sodium 142 (137-145) mmol/L Potassium 3.3 L (3.5-5.1) mmol/L Chloride 101 (98-107) mmol/L Carbon Dioxide 32 H (22-30) mmol/L Anion Gap 12.0 (5-15) MEQ/L BUN 12 (7-17) mg/dL Creatinine 0.59 (0.52-1.04) mg/dL Estimated GFR > 60.0 ML/MIN Glucose 253 H (74-106) mg/dL Calcium 8.9 (8.4-10.2) mg/dL Multi-Disciplinary Progress Notes: Multi-Disciplinary Progress Notes 10/10/18 09:13 Case Management Note by Katherin Jaime S/W MILVIA BUSTILLO (GUARDIAN) RE: HER GETTING ACCESS TO PT'S FINANCIALS. SHE STATED THAT SHE WAS IN CONTACT W/ PT'S BANK ON SUNDAY AND GAVE THEM ALL HER INFORMATION WHICH THEY WOULD HAND OVER TO THEIR SPECIMEN COLLECTOR TEAM THAT WOULD REVIEW IT BEFORE SHE IS ABLE TO HAVE ACCESS THE PT'S BANK ACCOUNT WHICH USUALLY TAKES A WEEK. SHE STATED THAT SHE WILL CONTACT THE BANK TODAY TO SEE IF ANY PROGRESS HAS BEEN MADE. CONTACTED [facility] TO GIVE THEM THE GUARDIAN'S CONTACT INFO. THEY STILL HAVE A BED AVAILABLE FOR THE PT BUT CANNOT TAKE HER UNTIL THE FINANCIALS ARE SETTLED. PASRR PAPERS COMPLETE AND ON THE CHART. GUARDIAN'S EMAIL: [email or web address] Initialized on 10/10/18 09:13 - END OF NOTE Assessment/Plan (1) Dementia Current Visit: Yes Status: Acute Qualifiers: Dementia type: unspecified type Dementia behavioral disturbance: with behavioral disturbance Qualified Code(s): F03.91 - Unspecified dementia with behavioral disturbance Assessment & Plan: Continue Aricept. Awaiting safe destination for patient as she cannot live by herself and requires 24/7 monitoring. Code(s): F03.90 - UNSPECIFIED DEMENTIA WITHOUT BEHAVIORAL DISTURBANCE (2) Hypertension Current Visit: Yes Status: Chronic Qualifiers: Hypertension type: essential hypertension Qualified Code(s): I10 - Essential (primary) hypertension Assessment & Plan: Numbers are a little higher yesterday. Will continue to monitor and may adjust medication tomorrow. Code(s): I10 - ESSENTIAL (PRIMARY) HYPERTENSION (3) Type 2 diabetes mellitus with hyperglycemia Current Visit: No Status: Acute Qualifiers: Diabetes mellitus snf insulin use: with snf use Qualified Code( s): E11.65 - Type 2 diabetes mellitus with hyperglycemia; Z79.4 - marine oil terminal superintendent ( current) use of insulin Assessment & Plan: Much better controlled on current regimen. Code(s): E11.65 - TYPE 2 DIABETES MELLITUS WITH HYPERGLYCEMIA (4) Hypothyroidism Current Visit: No Status: Acute Assessment & Plan: Continue levothyroxine. Code(s): E03.9 - HYPOTHYROIDISM, UNSPECIFIED (5) Poor social situation Current Visit: Yes Status: Chronic Code(s): Z65.9 - PROBLEM RELATED TO UNSPECIFIED PSYCHOSOCIAL CIRCUMSTANCES (6) Hypokalemia Current Visit: No Status: Resolved Assessment & Plan: Extra dose of potassium chloride given yesterday and daily dose increased to 20 meq daily. Code(s): E87.6 - HYPOKALEMIA
[2018-10-10] MEDS: TYLENOL 325 MG PO PRN (11:01)
[2018-10-10] MEDS: Aricept 10 MG PO SCH (20:31)
[2018-10-10] MEDS: ZOCOR 20MG PO SCH (20:32)
--- NOTE | 2018-10-11 08:59 | PCM.NOTE ---
Date and Time: 10/11/18 0852 Subjective Assessment: Patient reports that she has a headache. Asked if she would like tylenol for this and she says not at this time. She is cooperative for me today. - Review of Systems All Other Systems: Unable due to dementia Objective Exam General Appearance: no apparent distress, alert, obese Neurologic Exam: alert Skin Exam: normal color, warm, dry Respiratory Exam: normal breath sounds, lungs clear, No crackles/rales, No rhonchi, No wheezing Cardiovascular Exam: regular rate/rhythm, normal heart sounds, No murmur, No friction rub, No gallop Gastrointestinal/Abdomen Exam: soft, normal bowel sounds, No tenderness, No distention, No mass Extremity Exam: other (no c/c/e) OBJECTIVE DATA Vital Signs: Vital Signs - 24 hr Temp Pulse Resp BP BP Pulse Ox 10/10/18 20:31 72 141/77 10/10/18 20:25 97.3 F 72 16 141/77 95 10/10/18 09:45 76 167/103 Pain Assessment - Last Documented Pain Intensity 0 Pain Scale Used 0-10 Pain Scale Intake and Output: Intake & Output 10/09/18 10/10/18 10/11/18 10/12/18 06:59 06:59 06:59 06:59 Intake Total 1080 470 880 Output Total 0 Balance 1080 470 880 Lab Results: Accuchecks Accucheck Value: 202 Accucheck Value: 174 Multi-Disciplinary Progress Notes: Multi-Disciplinary Progress Notes 10/10/18 09:13 Case Management Note by Katherin Jaime S/W MILVIA BUSTILLO (GUARDIAN) RE: HER GETTING ACCESS TO PT'S FINANCIALS. SHE STATED THAT SHE WAS IN CONTACT W/ PT'S BANK ON SUNDAY AND GAVE THEM ALL HER INFORMATION WHICH THEY WOULD HAND OVER TO THEIR BOOKY TEAM THAT WOULD REVIEW IT BEFORE SHE IS ABLE TO HAVE ACCESS THE PT'S BANK ACCOUNT WHICH USUALLY TAKES A WEEK. SHE STATED THAT SHE WILL CONTACT THE BANK TODAY TO SEE IF ANY PROGRESS HAS BEEN MADE. CONTACTED [facility] TO GIVE THEM THE GUARDIAN'S CONTACT INFO. THEY STILL HAVE A BED AVAILABLE FOR THE PT BUT CANNOT TAKE HER UNTIL THE FINANCIALS ARE SETTLED. PASRR PAPERS COMPLETE AND ON THE CHART. MICKIE'S EMAIL: [email or web address] Initialized on 10/10/18 09:13 - END OF NOTE Assessment/Plan (1) Dementia Current Visit: Yes Status: Acute Qualifiers: Dementia type: unspecified type Dementia behavioral disturbance: with behavioral disturbance Qualified Code(s): F03.91 - Unspecified dementia with behavioral disturbance Assessment & Plan: Continue aricept; awaiting guardian to sort through her financial information for her to be placed in long distance operator facility as she needs 24 hour care. Code(s): F03.90 - UNSPECIFIED DEMENTIA WITHOUT BEHAVIORAL DISTURBANCE (2) Hypertension Current Visit: Yes Status: Chronic Qualifiers: Hypertension type: essential hypertension Qualified Code(s): I10 - Essential (primary) hypertension Assessment & Plan: If blood pressure still higher tomorrow, will adjust medication. Code(s): I10 - ESSENTIAL (PRIMARY) HYPERTENSION (3) Type 2 diabetes mellitus with hyperglycemia Current Visit: No Status: Acute Qualifiers: Diabetes mellitus long distance operator insulin use: with long distance operator use Qualified Code( s): E11.65 - Type 2 diabetes mellitus with hyperglycemia; Z79.4 - termite technician ( current) use of insulin Assessment & Plan: Better controlled. Die Setter notes poor oral intake. When I have seen her eating breakfast, she seems to have a very good appetite. Will order weekly weights. Code(s): E11.65 - TYPE 2 DIABETES MELLITUS WITH HYPERGLYCEMIA (4) Hypothyroidism Current Visit: No Status: Acute Assessment & Plan: Continue levothyroxine. Code(s): E03.9 - HYPOTHYROIDISM, UNSPECIFIED (5) Poor social situation Current Visit: Yes Status: Chronic Code(s): Z65.9 - PROBLEM RELATED TO UNSPECIFIED PSYCHOSOCIAL CIRCUMSTANCES (6) Hypokalemia Current Visit: No Status: Resolved Assessment & Plan: Continue current dose of potassium. Code(s): E87.6 - HYPOKALEMIA
[2018-10-11] MEDS: SYNTHROID 150 MCG PO SCH (10:35)
[2018-10-11] MEDS: Cozaar 50 MG PO SCH (10:35)
[2018-10-11] MEDS: Lantus Insulin SQ SCH (10:48)
[2018-10-11] MEDS: Klor Con 10 MEQ PO SCH (10:48)
[2018-10-11] MEDS: Januvia 50 MG PO SCH (10:48)
[2018-10-11] MEDS: TENORMIN 50 MG PO SCH ×2 (10:48→20:53)
[2018-10-11] MEDS: xanAX 0.5 MG PO SCH ×2 (10:49→20:55)
[2018-10-11] MEDS: MIDAMOR PO SCH ×2 (10:49→18:07)
[2018-10-11] MEDS: Glucotrol 5 MG PO SCH ×2 (10:52→18:06)
[2018-10-11] MEDS: NovoLOG Insulin SQ PRN (12:19)
[2018-10-11] MEDS: ZOCOR 20MG PO SCH (20:55)
[2018-10-11] MEDS: Aricept 10 MG PO SCH (20:55)
[2018-10-11] MEDS: TYLENOL 325 MG PO PRN (20:56)
[2018-10-12] MEDS: xanAX 0.5 MG PO SCH ×2 (08:44→23:38)
[2018-10-12] MEDS: SYNTHROID 150 MCG PO SCH (08:44)
[2018-10-12] MEDS: Cozaar 50 MG PO SCH (08:44)
[2018-10-12] MEDS: TENORMIN 50 MG PO SCH ×2 (08:44→23:38)
[2018-10-12] MEDS: Klor Con 10 MEQ PO SCH (08:45)
[2018-10-12] MEDS: Glucotrol 5 MG PO SCH ×2 (08:45→17:17)
[2018-10-12] MEDS: Januvia 50 MG PO SCH (08:45)
[2018-10-12] MEDS: MIDAMOR PO SCH ×2 (08:49→17:18)
[2018-10-12] MEDS: Lantus Insulin SQ SCH (09:25)
[2018-10-12] MEDS: NovoLOG Insulin SQ PRN ×2 (09:27→13:17)
--- NOTE | 2018-10-12 14:08 | PCM.NOTE ---
Date and Time: 10/12/18 1404 Subjective Assessment: She continues to wander frequently. She is trying to eat her lunch and doesn't seem to have as good an appetite for her lunch as she usually seems to have for her breakfast. She denies any pain. She doesn't want to lean forward in her chair for me to listen to her lungs. - Review of Systems All Other Systems: Unable due to dementia Objective Exam General Appearance: no apparent distress, other (appears tired) Neurologic Exam: alert, No cooperative Skin Exam: normal color, warm Respiratory Exam: normal breath sounds Cardiovascular Exam: regular rate/rhythm, No murmur, No friction rub, No gallop Gastrointestinal/Abdomen Exam: soft, normal bowel sounds, No tenderness, No distention, No mass Extremity Exam: other (no c/c/e) OBJECTIVE DATA Vital Signs: Vital Signs - 24 hr Temp Pulse Resp BP BP Pulse Ox 10/12/18 11:55 98.2 F 80 18 129/59 100 10/12/18 08:44 72 136/74 10/12/18 07:27 98.0 F 78 18 162/70 98 10/11/18 20:53 84 167/78 10/11/18 20:00 98.1 F 84 17 167/78 98 10/11/18 16:00 97.8 F 78 18 94 L Pain Assessment - Last Documented Pain Intensity 7 Pain Scale Used [facility] Intake and Output: Intake & Output 10/10/18 10/11/18 10/12/18 10/13/18 06:59 06:59 06:59 06:59 Intake Total 470 880 480 Output Total 0 Balance 470 880 480 Lab Results: Accuchecks Date 10/12/18 Date 10/12/18 Date 10/11/18 Time 11:30 Time 07:30 Time 21:00 Accucheck Value: 278 Accucheck Value: 220 Accucheck Value: 212 Accucheck Value: 158 Assessment/Plan (1) Dementia Current Visit: Yes Status: Acute Qualifiers: Dementia type: unspecified type Dementia behavioral disturbance: with behavioral disturbance Qualified Code(s): F03.91 - Unspecified dementia with behavioral disturbance Assessment & Plan: Continue with aricept. Guardian in place who is working through Ms. Ferguson's financial matters to have payment source for alf care for her safety. Code(s): F03.90 - UNSPECIFIED DEMENTIA WITHOUT BEHAVIORAL DISTURBANCE (2) Hypertension Current Visit: Yes Status: Chronic Qualifiers: Hypertension type: essential hypertension Qualified Code(s): I10 - Essential (primary) hypertension Assessment & Plan: Most recent blood pressure better. Continue current medication. Code(s): I10 - ESSENTIAL (PRIMARY) HYPERTENSION (3) Type 2 diabetes mellitus with hyperglycemia Current Visit: No Status: Acute Qualifiers: Diabetes mellitus long term care pharmacist insulin use: with long term care pharmacist use Qualified Code( s): E11.65 - Type 2 diabetes mellitus with hyperglycemia; Z79.4 - keno terminal operator ( current) use of insulin Code(s): E11.65 - TYPE 2 DIABETES MELLITUS WITH HYPERGLYCEMIA (4) Hypothyroidism Current Visit: No Status: Acute Assessment & Plan: Continue levothyroxine. Code(s): E03.9 - HYPOTHYROIDISM, UNSPECIFIED (5) Poor social situation Current Visit: Yes Status: Chronic Code(s): Z65.9 - PROBLEM RELATED TO UNSPECIFIED PSYCHOSOCIAL CIRCUMSTANCES (6) Hypokalemia Current Visit: No Status: Resolved Assessment & Plan: Continue oral potassium. Code(s): E87.6 - HYPOKALEMIA
[2018-10-12] MEDS: ZOCOR 20MG PO SCH (23:38)
[2018-10-12] MEDS: Aricept 10 MG PO SCH (23:39)
[2018-10-13] MEDS: Glucotrol 5 MG PO SCH ×2 (08:40→17:52)
[2018-10-13] MEDS: TYLENOL 325 MG PO PRN (08:44)
[2018-10-13] MEDS: Klor Con 10 MEQ PO SCH (10:26)
[2018-10-13] MEDS: xanAX 0.5 MG PO SCH ×2 (10:26→20:55)
[2018-10-13] MEDS: TENORMIN 50 MG PO SCH ×2 (10:27→20:55)
[2018-10-13] MEDS: Cozaar 50 MG PO SCH (10:27)
[2018-10-13] MEDS: SYNTHROID 150 MCG PO SCH (10:28)
[2018-10-13] MEDS: MIDAMOR PO SCH ×2 (10:29→17:52)
[2018-10-13] MEDS: Lantus Insulin SQ SCH (10:29)
--- NOTE | 2018-10-13 13:10 | PCM.NOTE ---
Date and Time: 10/13/18 1308 Subjective Assessment: Patient tells me "I don't need anything." and "I know what you are up to." - Review of Systems All Other Systems: Unable due to dementia Objective Exam General Appearance: no apparent distress, other (Patient declines physical exam) Neurologic Exam: alert, No cooperative OBJECTIVE DATA Vital Signs: Vital Signs - 24 hr Temp Pulse Resp BP BP Pulse Ox 10/13/18 11:33 98.2 F 72 18 148/64 96 10/13/18 10:27 69 114/71 10/13/18 07:35 98.2 F 69 18 114/71 96 10/12/18 23:38 75 150/60 10/12/18 20:00 97.8 F 75 18 150/60 98 10/12/18 16:00 98.1 F 71 18 155/71 97 Pain Assessment - Last Documented Pain Intensity 3 Pain Scale Used 0-10 Pain Scale Intake and Output: Intake & Output 10/11/18 10/12/18 10/13/18 10/14/18 06:59 06:59 06:59 06:59 Intake Total 880 480 Balance 880 480 Lab Results: Accuchecks Date 10/13/18 Date 10/13/18 Date 10/12/18 Date 10/12/18 Time 11:30 Time 07:30 Time 21:00 Time 16:30 Accucheck Value: 193 Accucheck Value: 78 Accucheck Value: 89 Assessment/Plan (1) Dementia Current Visit: Yes Status: Acute Qualifiers: Dementia type: unspecified type Dementia behavioral disturbance: with behavioral disturbance Qualified Code(s): F03.91 - Unspecified dementia with behavioral disturbance Assessment & Plan: Continue aricept. Code(s): F03.90 - UNSPECIFIED DEMENTIA WITHOUT BEHAVIORAL DISTURBANCE (2) Hypertension Current Visit: Yes Status: Chronic Qualifiers: Hypertension type: essential hypertension Qualified Code(s): I10 - Essential (primary) hypertension Assessment & Plan: Continue current medication. Code(s): I10 - ESSENTIAL (PRIMARY) HYPERTENSION (3) Type 2 diabetes mellitus with hyperglycemia Current Visit: No Status: Acute Qualifiers: Diabetes mellitus computer terminal operator insulin use: with computer terminal operator use Qualified Code( s): E11.65 - Type 2 diabetes mellitus with hyperglycemia; Z79.4 - terminal operator ( current) use of insulin Assessment & Plan: Her blood glucose was 89 this AM. To avoid lows, I am stopping Januvia and decreasing her lantus from 36 to 30 units. Code(s): E11.65 - TYPE 2 DIABETES MELLITUS WITH HYPERGLYCEMIA (4) Hypothyroidism Current Visit: No Status: Acute Assessment & Plan: Continue levothyroxine. Code(s): E03.9 - HYPOTHYROIDISM, UNSPECIFIED (5) Poor social situation Current Visit: Yes Status: Chronic Assessment & Plan: Guardian has been placed; awaiting guardian to work through her financials for placement in safe environment. Code(s): Z65.9 - PROBLEM RELATED TO UNSPECIFIED PSYCHOSOCIAL CIRCUMSTANCES (6) Hypokalemia Current Visit: No Status: Chronic Assessment & Plan: Continue potassium. Code(s): E87.6 - HYPOKALEMIA
[2018-10-13] MEDS: NovoLOG Insulin SQ PRN ×2 (18:08→20:56)
[2018-10-13] MEDS: Aricept 10 MG PO SCH (20:54)
[2018-10-13] MEDS: ZOCOR 20MG PO SCH (20:55)
--- NOTE | 2018-10-14 08:55 | PCM.NOTE ---
Date and Time: 10/14/18 0846 Subjective Assessment: Patient reports there is not enough food in this place and that it is a wreck and someone needs to look into and fast. Offered to get her more breakfast as she has cleaned her plate, but she declines as she states then people will be mad at her although I assured her that this would not be the case. - Review of Systems All Other Systems: Unable due to dementia (She does deny any pain) Objective Exam General Appearance: no apparent distress, other (agitated, alert, further physical exam deferred due to agitation.) OBJECTIVE DATA Vital Signs: Vital Signs - 24 hr Temp Pulse Resp BP BP Pulse Ox 10/14/18 07:20 98.1 F 70 18 155/96 97 10/13/18 20:55 78 125/60 10/13/18 19:45 97.9 F 78 19 125/60 95 10/13/18 16:00 98.1 F 69 18 116/62 95 10/13/18 11:33 98.2 F 72 18 148/64 96 10/13/18 10:27 69 114/71 Pain Assessment - Last Documented Pain Intensity 0 Pain Scale [facility] Intake and Output: Intake & Output 10/12/18 10/13/18 10/14/18 10/15/18 06:59 06:59 06:59 06:59 Intake Total 480 400 Balance 480 400 Lab Results: Accuchecks Date 10/13/18 Date 10/13/18 Date 10/13/18 Time 21:24 Time 16:30 Time 11:30 Accucheck Value: 243 Accucheck Value: 207 Accucheck Value: 193 Assessment/Plan (1) Dementia Current Visit: Yes Status: Acute Qualifiers: Dementia type: unspecified type Dementia behavioral disturbance: with behavioral disturbance Qualified Code(s): F03.91 - Unspecified dementia with behavioral disturbance Assessment & Plan: Continue aricept. Awaiting guardian to work through patient's financial status so she can have correction placement in a safe environment. Code(s): F03.90 - UNSPECIFIED DEMENTIA WITHOUT BEHAVIORAL DISTURBANCE (2) Hypertension Current Visit: Yes Status: Chronic Qualifiers: Hypertension type: essential hypertension Qualified Code(s): I10 - Essential (primary) hypertension Assessment & Plan: Continue current medication. Code(s): I10 - ESSENTIAL (PRIMARY) HYPERTENSION (3) Type 2 diabetes mellitus with hyperglycemia Current Visit: No Status: Acute Qualifiers: Diabetes mellitus label stamper insulin use: with label stamper use Qualified Code( s): E11.65 - Type 2 diabetes mellitus with hyperglycemia; Z79.4 - care home ( current) use of insulin Assessment & Plan: Continue current doses of medication. Code(s): E11.65 - TYPE 2 DIABETES MELLITUS WITH HYPERGLYCEMIA (4) Hypothyroidism Current Visit: No Status: Acute Assessment & Plan: Continue levothyoxine. Code(s): E03.9 - HYPOTHYROIDISM, UNSPECIFIED (5) Poor social situation Current Visit: Yes Status: Chronic Code(s): Z65.9 - PROBLEM RELATED TO UNSPECIFIED PSYCHOSOCIAL CIRCUMSTANCES (6) Hypokalemia Current Visit: No Status: Chronic Assessment & Plan: Continue potassium. Code(s): E87.6 - HYPOKALEMIA
[2018-10-14] MEDS: Klor Con 10 MEQ PO SCH (09:01)
[2018-10-14] MEDS: SYNTHROID 150 MCG PO SCH (09:01)
[2018-10-14] MEDS: xanAX 0.5 MG PO SCH ×2 (09:01→20:56)
[2018-10-14] MEDS: MIDAMOR PO SCH ×2 (09:01→16:52)
[2018-10-14] MEDS: Cozaar 50 MG PO SCH (09:01)
[2018-10-14] MEDS: Glucotrol 5 MG PO SCH ×2 (09:02→16:52)
[2018-10-14] MEDS: Lantus Insulin SQ SCH (09:02)
[2018-10-14] MEDS: TENORMIN 50 MG PO SCH ×2 (09:02→20:54)
[2018-10-14] MEDS: Aricept 10 MG PO SCH (20:51)
[2018-10-14] MEDS: ZOCOR 20MG PO SCH (20:57)
[2018-10-14] MEDS: NovoLOG Insulin SQ PRN (20:59)
[2018-10-15] MEDS: Glucotrol 5 MG PO SCH ×2 (08:24→16:56)
[2018-10-15] MEDS: TYLENOL 325 MG PO PRN (08:32)
[2018-10-15] MEDS: TENORMIN 50 MG PO SCH ×2 (08:34→21:28)
[2018-10-15] MEDS: xanAX 0.5 MG PO SCH ×2 (08:35→21:28)
[2018-10-15] MEDS: Cozaar 50 MG PO SCH (08:35)
[2018-10-15] MEDS: Klor Con 10 MEQ PO SCH (08:36)
[2018-10-15] MEDS: SYNTHROID 150 MCG PO SCH (08:36)
[2018-10-15] MEDS: MIDAMOR PO SCH ×2 (08:37→16:56)
[2018-10-15] MEDS: Lantus Insulin SQ SCH (08:38)
[2018-10-15] MEDS: NovoLOG Insulin SQ PRN ×2 (08:39→21:29)
--- NOTE | 2018-10-15 08:53 | PCM.NOTE ---
Date and Time: 10/15/18 0850 Subjective Assessment: Patient reports she is not in a good mood today. She states with the weather change, she has aches and pains and is willing to take tylenol for this. She reports that she did sleep well. - Review of Systems All Other Systems: Unable due to dementia (besides what is in HPI, unobtainable as patient is somewhat agitated today.) Objective Exam General Appearance: no apparent distress, alert, other (states she is angry today) Neurologic Exam: No cooperative Skin Exam: normal color, dry Comments: 10/15/18 08:51 physical exam deferred due to her agitation. OBJECTIVE DATA Vital Signs: Vital Signs - 24 hr Temp Pulse Resp BP BP Pulse Ox 10/15/18 08:34 96 H 166/72 10/15/18 07:25 98.2 F 68 18 194/81 96 10/14/18 20:00 98.1 F 86 18 166/72 96 10/14/18 16:00 98.2 F 89 18 126/57 95 10/14/18 11:43 98.0 F 80 18 134/73 95 10/14/18 09:02 70 155/96 Pain Assessment - Last Documented Pain Intensity 0 Pain Scale Used 0-10 Pain Scale Intake and Output: Intake & Output 10/13/18 10/14/18 10/15/18 10/16/18 06:59 06:59 06:59 06:59 Intake Total 400 960 Balance 400 960 Lab Results: Accuchecks Date 10/14/18 Date 10/14/18 Date 10/14/18 Time 21:00 Time 16:30 Time 11:30 Accucheck Value: 257 Accucheck Value: 111 Accucheck Value: 142 Multi-Disciplinary Progress Notes: Multi-Disciplinary Progress Notes 10/14/18 15:56 Case Management Note by Alba Murdock UPDATED INFORMATION FAXED TO [facility] PER THEIR REQUEST . Initialized on 10/14/18 15:56 - END OF NOTE 10/14/18 10:18 Case Management Note by Alba Murdock CALL TO [facility], SPOKE WITH NANCI. NANCI REPORTS THAT THEY ARE STILL WANTING PT, AWAIT FINANCIAL SITUATION. DISCUSSED DOWN PAYMENT AND MEDICAID PENDING. NANCI REPORTS THAT SHE WILL DISCUSS WITH [facility] WHEN SHE RETURNS TO THEIR BUSINESS OFFICE AND WILL HAVE HER CALL CORPORATE TODAY. ALSO, REQUESTED THAT THEY CALL [facility], GUARDIAN AND DISCUSS. IF THEY ARE NOT GOING TO BE ABLE TO ACCEPT, CASE MANAGEMENT WILL NEED TO START CALLING ALTERNATE FACILITIES. NANCI REPORTS THAT THEY WILL CALL BACK TODAY. Initialized on 10/14/18 10:18 - END OF NOTE 10/14/18 10:16 Case Management Note by Alba Murdock CALL TO [facility] FOR UPDATE OF FINANCIALS FOR NH PLACEMENT. [facility] REPORTS THAT SHE IS WAITING FOR 'S CERTIFICATE TO BE ADDED TO PT ACCT. REPORTS THAT SHE IS NOT COMPLETELY SURE OF FINANCIAL STATUS AT THIS TIME. REPORTS THAT SHE SHOULD KNOW SOMETHING MORE TODAY BY 1300. REQUESTS THAT I CALL [facility] TO SEE IF THEY WOULD TAKE PT WITH A DOWN PAYMENT AND MEDICAID PENDING IF NEED BE. REPORTS THAT SHE WILL CALL/EMAIL ME BACK AFTER 13OO TODAY. Initialized on 10/14/18 10:16 - END OF NOTE Assessment/Plan (1) Dementia Current Visit: Yes Status: Acute Qualifiers: Dementia type: unspecified type Dementia behavioral disturbance: with behavioral disturbance Qualified Code(s): F03.91 - Unspecified dementia with behavioral disturbance Assessment & Plan: Continue aricept. Awaiting placement for senior living care for her safety. Her guardian is working through her financial situation and our life care planner has been in contact with her and a facility at [facility] who says they would take her upon discharge. Code(s): F03.90 - UNSPECIFIED DEMENTIA WITHOUT BEHAVIORAL DISTURBANCE (2) Hypertension Current Visit: Yes Status: Chronic Qualifiers: Hypertension type: essential hypertension Qualified Code(s): I10 - Essential (primary) hypertension Assessment & Plan: Her blood pressure is a little higher today, but again she seems agitated. Code(s): I10 - ESSENTIAL (PRIMARY) HYPERTENSION (3) Type 2 diabetes mellitus with hyperglycemia Current Visit: No Status: Acute Qualifiers: Diabetes mellitus refractory furnace designer insulin use: with refractory furnace designer use Qualified Code( s): E11.65 - Type 2 diabetes mellitus with hyperglycemia; Z79.4 - long term acute care registered nurse ( current) use of insulin Assessment & Plan: Better controlled. Continue current medication. Code(s): E11.65 - TYPE 2 DIABETES MELLITUS WITH HYPERGLYCEMIA (4) Hypothyroidism Current Visit: No Status: Acute Assessment & Plan: Continue levothyroxine. Code(s): E03.9 - HYPOTHYROIDISM, UNSPECIFIED (5) Poor social situation Current Visit: Yes Status: Chronic Code(s): Z65.9 - PROBLEM RELATED TO UNSPECIFIED PSYCHOSOCIAL CIRCUMSTANCES (6) Hypokalemia Current Visit: No Status: Chronic Assessment & Plan: Continue potassium. Code(s): E87.6 - HYPOKALEMIA
[2018-10-15] MEDS: ZOCOR 20MG PO SCH (21:28)
[2018-10-15] MEDS: Aricept 10 MG PO SCH (21:28)
--- NOTE | 2018-10-16 08:28 | PCM.NOTE ---
Date and Time: 10/16/18823 Subjective Assessment: When I asked patient how she was doing she said, "I'm not in the mood for chit chat." When I asked her if I may listen to her heart and lungs she stated, "I think they are fine and don't need anything." I asked if I could get her anything and she said, "no." - Review of Systems All Other Systems: Unable due to dementia Objective Exam General Appearance: no apparent distress, other (sitting on the side of her bed ; shuffeling her papers; patient declined any further physical exam.) Neurologic Exam: alert, No cooperative Skin Exam: normal color, warm, dry OBJECTIVE DATA Vital Signs: Vital Signs - 24 hr Temp Pulse Resp BP BP Pulse Ox 10/16/18 07:32 98.0 F 76 18 167/76 96 10/15/18 21:28 89 161/88 10/15/18 20:00 97.9 F 89 19 161/88 95 10/15/18 16:00 98.2 F 74 18 164/56 97 10/15/18 12:00 98.4 F 73 18 137/58 97 10/15/18 08:34 96 H 166/72 Pain Assessment - Last Documented Pain Intensity 0 Pain Scale Used 0-10 Pain Scale,FLACC Intake and Output: Intake & Output 10/14/18 10/15/18 10/16/18 10/17/18 06:59 06:59 06:59 06:59 Intake Total 379 389 0210 Balance 417 315 7833 Lab Results: Accuchecks Date 10/15/18 Date 10/15/18 Date 10/15/18 Date 10/15/18 Time 22:00 Time 16:30 Time 11:10 Time 11:10 Accucheck Value: 274 Accucheck Value: 177 Accucheck Value: 120 Accucheck Value: 120 Assessment/Plan (1) Dementia Current Visit: Yes Status: Acute Qualifiers: Dementia type: unspecified type Dementia behavioral disturbance: with behavioral disturbance Qualified Code(s): F03.91 - Unspecified dementia with behavioral disturbance Assessment & Plan: Will increase aricept to 10 mg daily. Code(s): F03.90 - UNSPECIFIED DEMENTIA WITHOUT BEHAVIORAL DISTURBANCE (2) Hypertension Current Visit: Yes Status: Chronic Qualifiers: Hypertension type: essential hypertension Qualified Code(s): I10 - Essential (primary) hypertension Assessment & Plan: Continue losartan 100 mg and add amlodipine 5 mg and continue amiloride. Code(s): I10 - ESSENTIAL (PRIMARY) HYPERTENSION (3) Type 2 diabetes mellitus with hyperglycemia Current Visit: No Status: Acute Qualifiers: Diabetes mellitus long chain beamer insulin use: with assisted use Qualified Code( s): E11.65 - Type 2 diabetes mellitus with hyperglycemia; Z79.4 - MCFP ( current) use of insulin Assessment & Plan: Fairly well controlled. No lows. Continue current medication. Code(s): E11.65 - TYPE 2 DIABETES MELLITUS WITH HYPERGLYCEMIA (4) Hypothyroidism Current Visit: No Status: Acute Assessment & Plan: Continue levothyroxine. Code(s): E03.9 - HYPOTHYROIDISM, UNSPECIFIED (5) Poor social situation Current Visit: Yes Status: Chronic Assessment & Plan: She has a court appointed guardian who is working through her financial situation and our party planner is working with the guardian to find placement for her as she requires 24/ supervision for her safety. Code(s): Z65.9 - PROBLEM RELATED TO UNSPECIFIED PSYCHOSOCIAL CIRCUMSTANCES (6) Hypokalemia Current Visit: No Status: Chronic Code(s): E87.6 - HYPOKALEMIA
[2018-10-16] MEDS: NORVASC 5 MG PO SCH (10:19)
[2018-10-16] MEDS: SYNTHROID 150 MCG PO SCH (10:19)
[2018-10-16] MEDS: TENORMIN 50 MG PO SCH ×2 (10:19→20:25)
[2018-10-16] MEDS: Glucotrol 5 MG PO SCH ×2 (10:19→16:58)
[2018-10-16] MEDS: xanAX 0.5 MG PO SCH ×2 (10:20→20:25)
[2018-10-16] MEDS: Klor Con 10 MEQ PO SCH (10:20)
[2018-10-16] MEDS: MIDAMOR PO SCH ×2 (10:21→16:58)
[2018-10-16] MEDS: Lantus Insulin SQ SCH (10:21)
[2018-10-16] MEDS: Cozaar 50 MG PO SCH (10:22)
[2018-10-16] MEDS: Aricept 10 MG PO SCH (20:25)
[2018-10-16] MEDS: ZOCOR 20MG PO SCH (20:25)
[2018-10-16] MEDS: NovoLOG Insulin SQ PRN (20:26)
[2018-10-17] MEDS: Glucotrol 5 MG PO SCH ×2 (08:12→17:17)
[2018-10-17] MEDS: Cozaar 50 MG PO SCH (08:13)
[2018-10-17] MEDS: Klor Con 10 MEQ PO SCH (08:13)
[2018-10-17] MEDS: TENORMIN 50 MG PO SCH ×2 (08:13→20:49)
[2018-10-17] MEDS: SYNTHROID 150 MCG PO SCH (08:14)
[2018-10-17] MEDS: NORVASC 5 MG PO SCH (08:14)
[2018-10-17] MEDS: xanAX 0.5 MG PO SCH ×2 (08:14→20:50)
[2018-10-17] MEDS: MIDAMOR PO SCH ×2 (08:14→17:18)
--- NOTE | 2018-10-17 08:48 | PCM.NOTE ---
Date and Time: 10/17/18 0844 Subjective Assessment: Chart shows that patient refused multiple medications yesterday including her insulin in the AM so her blood glucoses were higher yesterday. She is more pleasant today and talking about eating breakfast and her grandmother's house and talking about the people on her TV. - Review of Systems All Other Systems: Unable due to dementia (She denies pain or constipation.) Objective Exam General Appearance: no apparent distress Neurologic Exam: alert, cooperative Skin Exam: normal color, warm, dry, No rash Respiratory Exam: normal breath sounds, lungs clear, No crackles/rales, No rhonchi, No wheezing Cardiovascular Exam: regular rate/rhythm, normal heart sounds, No murmur, No friction rub, No gallop OBJECTIVE DATA Vital Signs: Vital Signs - 24 hr Temp Pulse Resp BP BP BP Pulse Ox 10/17/18 08:13 72 136/74 10/17/18 07:39 98.7 F 73 20 159/69 96 10/16/18 20:25 84 174/78 10/16/18 19:39 98.4 F 84 19 174/78 97 10/16/18 15:47 98.3 F 66 18 160/94 95 10/16/18 12:00 98.0 F 72 18 167/76 96 10/16/18 10:19 72 161/76 Pain Assessment - Last Documented Pain Intensity 0 Pain Scale Used [facility] Intake and Output: Intake & Output 10/15/18 10/16/18 10/17/18 10/18/18 06:59 06:59 06:59 06:59 Intake Total 960 1060 480 Balance 960 1060 480 Weight 75.1 kg Lab Results: Accuchecks Date 10/16/18 Date 10/16/18 Time 22:00 Time 16:30 Accucheck Value: 325 Accucheck Value: 159 Multi-Disciplinary Progress Notes: Multi-Disciplinary Progress Notes 10/16/18 15:42 Nutrition Note by Chrissie Candelaria Note: 1800 ADA diet con't with po intake 75-100%. blood sugar 10/15 = 274. no recent weight/labs available. Recommend to con't with current diet. Note pt refusing meds. Will con't to monitor and f/u prn. T.MARINA Candelaria Initialized on 10/16/18 15:42 - END OF NOTE 10/16/18 15:21 Case Management Note by Alba MurdockSSICA CALLED TO REPORT THAT THEY ARE ALSO CHECKING WITH THEIR SISTER FACILITY IN [facility]. REPORTS THAT THEY HAVE A MEMORY UNIT THERE NOW. REPORTS THAT SHE HAS A CALL IN TO [facility], BUT HAS NOT HEARD BACK. DISCUSSED THAT FROM [facility] THE SOONER SHE CAN BE ADMITTED TO A MEMORY UNIT, THE BETTER. Initialized on 10/16/18 15:21 - END OF NOTE 10/16/18 14:24 Case Management Note by Alba Murdock CALL TO [facility], REPORTS THAT THEY HAVE SENT TO SISTER FACILITY IN [place] WITH MEMORY UNIT, REPORTS THAT THE BUSINESS OFFICE HAS ALSO, BEEN TALKING WITH [facility] GUARDIAN. REPORTS THAT SHE SHOULD BE ABLE TO CALL BACK THIS AFTERNOON WITH AN ANSWER. Initialized on 10/16/18 14:24 - END OF NOTE Assessment/Plan (1) Dementia Current Visit: Yes Status: Acute Qualifiers: Dementia type: unspecified type Dementia behavioral disturbance: with behavioral disturbance Qualified Code(s): F03.91 - Unspecified dementia with behavioral disturbance Assessment & Plan: Continue aricept 10 mg. May also consider starting Namenda in the future. Code(s): F03.90 - UNSPECIFIED DEMENTIA WITHOUT BEHAVIORAL DISTURBANCE (2) Hypertension Current Visit: Yes Status: Chronic Qualifiers: Hypertension type: essential hypertension Qualified Code(s): I10 - Essential (primary) hypertension Assessment & Plan: Continue current medication. 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 When she does not refuse her medications and insulin, her blood glucoses are better controlled. Code(s): E11.65 - TYPE 2 DIABETES MELLITUS WITH HYPERGLYCEMIA (4) Hypothyroidism Current Visit: No Status: Acute Assessment & Plan: Continue levothyroxine. Code(s): E03.9 - HYPOTHYROIDISM, UNSPECIFIED (5) Poor social situation Current Visit: Yes Status: Chronic Assessment & Plan: She has a court appointed guardian and our store planner is working on placement for her restaurant recruiter as she needs 24 hour care due to her dementia for her safety. Code(s): Z65.9 - PROBLEM RELATED TO UNSPECIFIED PSYCHOSOCIAL CIRCUMSTANCES (6) Hypokalemia Current Visit: No Status: Chronic Assessment & Plan: Continue current medication. Code(s): E87.6 - HYPOKALEMIA
[2018-10-17] MEDS: Lantus Insulin SQ SCH (09:51)
[2018-10-17] MEDS: Aricept 10 MG PO SCH (20:49)
[2018-10-17] MEDS: ZOCOR 20MG PO SCH (20:50)
[2018-10-18] MEDS: Glucotrol 5 MG PO SCH (07:51)
[2018-10-18] MEDS: NovoLOG Insulin SQ PRN (07:52)
--- NOTE | 2018-10-18 08:48 | PCM.NOTE ---
Date and Time: 10/18/18 0847 Subjective Assessment: Patient tells me that I am not her doctor and her doctor is in [place]. She denies any pain. She states she does not want to talk to me. - Review of Systems All Other Systems: Unable due to dementia Objective Exam General Appearance: no apparent distress, alert Neurologic Exam: alert, other (Patient refuses physical exam), No cooperative Skin Exam: normal color OBJECTIVE DATA Vital Signs: Vital Signs - 24 hr Temp Pulse Resp BP BP Pulse Ox 10/18/18 07:28 97.9 F 65 17 145/72 94 L 10/17/18 20:49 77 151/65 10/17/18 20:00 97.4 F 77 20 151/65 98 10/17/18 16:00 79 18 166/70 97 10/17/18 12:00 99.3 F 81 18 93 L Pain Assessment - Last Documented Pain Intensity 0 Pain Scale Used 0-10 Pain Scale Intake and Output: Intake & Output 10/16/18 10/17/18 10/18/18 10/19/18 06:59 06:59 06:59 06:59 Intake Total 1060 960 480 Balance 1060 960 480 Weight 75.1 kg 72.8 kg Lab Results: Accuchecks Date 10/17/18 Date 10/17/18 Date 10/17/18 Time 21:00 Time 16:30 Time 11:30 Accucheck Value: 266 Accucheck Value: 263 Accucheck Value: 197 Accucheck Value: 285 Multi-Disciplinary Progress Notes: Multi-Disciplinary Progress Notes 10/17/18 16:15 Case Management Note by Alba Murdock FROM [facility] CALLED TO REPORT. CLINICALLY [facility] IS ACCEPTING PT, BUT THEY ARE WORKING OUT FINANCIALS WITH [facility]USTILL[facility], RONAN. WILL CALL BACK. Initialized on 10/17/18 16:15 - END OF NOTE 10/17/18 13:53 Case Management Note by Alba Murdock FROM [facility] COMING TO VISIT WITH PT. REPORTS THAT THEY DO NOT HAVE A FEMALE BED OPEN ON MEMORY UNIT, BUT CAN POSSIBLY PLACE HER IN THEIR FACILITY. Initialized on 10/17/18 13:53 - END OF NOTE 10/17/18 12:15 (created 10/17/18 13:55) Case Management Note by Alba Murdock REFERRALS ALSO SENT TO [facility] [place] [facility] PER REQUEST OF [facility]USTILL[facility], GUARDIAN. Initialized on 10/17/18 13:55 - END OF NOTE 10/17/18 11:10 Nutrition Note by Chrissie Candelaria F/u Note: Note weight 10/16 = 75.1 kg; adm weight 77kg. Glucerna ordered to supplement po intake. 10/09 labs were noted in 10/11 f/u note. Blood sugar today 173 - has decreased. Will con't to monitor and f/u prn. T.MARINA Candelaria Initialized on 10/17/18 11:10 - END OF NOTE Assessment/Plan (1) Dementia Current Visit: Yes Status: Acute Qualifiers: Dementia type: unspecified type Dementia behavioral disturbance: with behavioral disturbance Qualified Code(s): F03.91 - Unspecified dementia with behavioral disturbance Assessment & Plan: Continue aricept 10 mg daily. Awaiting her guardian to work through her financial situation so she can be placed in a prison care facility as she requires 24 hours a day supervision for her safety. Code(s): F03.90 - UNSPECIFIED DEMENTIA WITHOUT BEHAVIORAL DISTURBANCE (2) Hypertension Current Visit: Yes Status: Chronic Qualifiers: Hypertension type: essential hypertension Qualified Code(s): I10 - Essential (primary) hypertension Code(s): I10 - ESSENTIAL (PRIMARY) HYPERTENSION (3) Type 2 diabetes mellitus with hyperglycemia Current Visit: No Status: Acute Qualifiers: Diabetes mellitus prison insulin use: with prison use Qualified Code( s): E11.65 - Type 2 diabetes mellitus with hyperglycemia; Z79.4 - FDC ( current) use of insulin Assessment & Plan: Her blood glucoses have been high because she has refused her lantus 2 days in a row now. Code(s): E11.65 - TYPE 2 DIABETES MELLITUS WITH HYPERGLYCEMIA (4) Hypothyroidism Current Visit: No Status: Acute Code(s): E03.9 - HYPOTHYROIDISM, UNSPECIFIED (5) Poor social situation Current Visit: Yes Status: Chronic Code(s): Z65.9 - PROBLEM RELATED TO UNSPECIFIED PSYCHOSOCIAL CIRCUMSTANCES (6) Hypokalemia Current Visit: No Status: Chronic Code(s): E87.6 - HYPOKALEMIA
--- NOTE | 2018-10-18 09:52 | PCM.DCORD ---
- Discharge Discharge Date: 10/18/18 Disposition: DC TO ANY "OTHER" [facility] Condition: Fair Prescriptions: New ALPRAZolam [Alprazolam] 0.5 mg PO BID PRN #15 tablet PRN Reason: Anxiety Donepezil HCl 10 mg [Aricept 10 MG] 10 mg PO HS tablet Losartan Potassium 50 mg [Cozaar 50 MG] 100 mg PO DAILY tablet Glipizide 5 mg [Glucotrol 5 MG] 10 mg PO BIDWM tablet Potassium Chloride 10 Meq Tab* [Klor Con 10 MEQ] 20 meq PO DAILY tab Amlodipine Besylate 5 mg [Norvasc 5 mg] 5 mg PO QAM tablet Acetaminophen 325 mg [Tylenol 325 mg] 650 mg PO Q6H PRN PRN tablet PRN Reason: Pain And/Or Fever Continue Pravastatin Sodium 20 mg PO DAILY Atenolol 100 mg PO BID Insulin Glargine [Lantus Insulin] 30 unit SQ QAM unit Amiloride HCl [Midamor] 5 mg PO BID #60 tablet Levothyroxine Sodium 150 Mcg [Synthroid 150 Mcg] 150 mcg PO QAM #30 tablet Discontinued Alprazolam 0.5 mg [xanAX 0.5 MG] 0.5 mg PO DAILY Potassium Chloride 10 Meq Tab* [Klor Con 10 MEQ] 10 meq PO DAILY #30 tab Insulin Aspart [NovoLOG Insulin] 6 unit SQ TIDWM #10 ml Nystatin Cream 30 gm [Nystop 30 gm Cream] 1 gm TOP BID #120 g Lisinopril 10 mg [Zestril 10 MG] 20 mg PO DAILY 1 Days #30 tablet Additional Instructions: Follow up with physician at [facility] in [place], [place].
[2018-10-18] MEDS: SYNTHROID 150 MCG PO SCH (11:05)
[2018-10-18] MEDS: xanAX 0.5 MG PO SCH (11:06)
[2018-10-18] MEDS: Cozaar 50 MG PO SCH (11:06)
[2018-10-18] MEDS: TENORMIN 50 MG PO SCH (11:06)
[2018-10-18] MEDS: Klor Con 10 MEQ PO SCH (11:06)
[2018-10-18] MEDS: NORVASC 5 MG PO SCH (11:06)
[2018-10-18] MEDS: Lantus Insulin SQ SCH (11:08)
[2018-10-18] MEDS: MIDAMOR PO SCH (11:11)
[2018-10-18 12:58] VITALS: BP 153/80; PULSE 74; O2SAT 95
== END 2018-10-18 12:10 ==
LOC: ED 22:56 → MED SURG 09-13 15:00
PROVIDERS: ADMIT Internal Medicine; ATTEND Internal Medicine
DX: F03.90 Unspecified dementia, unspecified severity, without behavioral disturbance, psychotic disturbance, mood disturbance, and anxiety (principal); E03.9 Hypothyroidism, unspecified; E11.65 Type 2 diabetes mellitus with hyperglycemia; E87.6 Hypokalemia; I10 Essential (primary) hypertension; G93.89 Other specified disorders of brain; Z65.9 Problem related to unspecified psychosocial circumstances
CPT/HCPCS: 36000; 36415; 51702; 70450; 80048; 80053; 81001; 82140; 82962; 83605; 84443; 85025; 93041; 96360; 96361; 99285; G0378; J1200; J1630; J1650; A9270-GY